=== PATIENT | male | born 1990 | race Two or more races ===

== ENCOUNTER 2021-03-11 13:22 | Outpatient (REF) | payer OTHER, SELFPAY ==
[2021-03-11 16:42] LABS: Hematocrit 46.3 % (42-52); Hemoglobin 15.6 g/dl (14.0-18.0); Mean Corpuscular HGB Conc 33.7 g/dl (31.0-36.0); Mean Corpuscular Hemoglobin 31.9 pg (27.0-33.0); Mean Corpuscular Volume 94.7 fL (80-98); Platelet Count 219 X10*3/uL (160-400); Red Blood Count 4.89 X10*6/uL (4.60-5.80); Red Cell Distribution Width 12.1 % (11.0-16.0); White Blood Count 5.8 X10*3/uL (4.8-10.8)
[2021-03-11 17:15] LABS: Alanine Aminotransferase 76 U/L (0-40); Albumin Level 4.7 g/dL (3.5-5.0); Alkaline Phosphatase 80 U/L (39-117); Anion Gap 16 (12-20); Aspartate Amino Transferase 45 U/L (5-37); Bilirubin Direct 0.3 mg/dL (0.0-0.5); Bilirubin Total 0.9 mg/dL (0.0-1.0); Blood Urea Nitrogen 15 mg/dL (9-16); Calcium 9.8 mg/dL (8.4-10.2); Carbon Dioxide 26 mmol/L (22-29); Chloride 101 mmol/L (96-108); Cholesterol 210 mg/dL; Estimated Glomerular Filt Rate > 60; Glucose Random 249 mg/dL (60-115); HDL Cholesterol 36 mg/dL; Potassium 4.8 mmol/L (3.3-5.1); Sodium 138 mmol/L (135-145); Total Protein 7.5 g/dL (6.5-8.0); Triglycerides 639 mg/dL
== END 2021-03-11 13:23 | disposition home or self-care (01) ==
LOC: HO.HMGCLDS 13:22
PROVIDERS: PCP Nurse Practitioner Family; Visit Provider Internal Medicine
DX: Z20.822 Contact with and (suspected) exposure to COVID-19 (principal); M79.10 Myalgia, unspecified site
CPT/HCPCS: 80048; 80061; 80076; 84443; 85027; C9803; U0003; U0005

== ENCOUNTER 2021-04-02 07:30 | Outpatient (REF) | payer OTHER, SELFPAY ==
[2021-04-02 11:30] LABS: D Dimer 443 NG/ML
[2021-04-02 11:47] LABS: Alanine Aminotransferase 66 U/L (0-40); Albumin Level 3.9 g/dL (3.5-5.0); Alkaline Phosphatase 67 U/L (39-117); Anion Gap 13 (12-20); Aspartate Amino Transferase 24 U/L (5-37); Bilirubin Total 1.1 mg/dL (0.0-1.0); Blood Urea Nitrogen 11 mg/dL (9-16); Carbon Dioxide 25 mmol/L (22-29); Chloride 103 mmol/L (96-108); Cholesterol 213 mg/dL; Estimated Glomerular Filt Rate > 60; Glucose Fasting 175 mg/dL (60-99); HDL Cholesterol 37 mg/dL; Potassium 4.5 mmol/L (3.3-5.1); Sodium 136 mmol/L (135-145); Total Protein 6.5 g/dL (6.5-8.0); Triglycerides 588 mg/dL
[2021-04-02 12:13] LABS: TSH reflex Free T4 1.46 uIU/mL (0.32-4.0)
[2021-04-02 12:30] LABS: Creatinine Urine 195.67 mg/dL; Microalbum/Creatinine Ratio Ur 9.7 ug/mg cr
== END 2021-04-02 07:31 | disposition home or self-care (01) ==
LOC: HO.HMGCLDS 07:30
PROVIDERS: PCP Nurse Practitioner Family; Visit Provider Nurse Practitioner Family
DX: R06.02 Shortness of breath (principal); E11.9 Type 2 diabetes mellitus without complications
CPT/HCPCS: 36415; 80053; 80061; 82043; 84443; 85379

== ENCOUNTER 2021-04-20 08:51 | Outpatient (REF) | payer OTHER, SELFPAY ==
--- NOTE | ~2021-04-20 | XR_ITS ---
EXAMINATION: XR CHEST CLINICAL INFORMATION: Covid infection. Cough. COMPARISON: None TECHNIQUE: 2 views of the chest were obtained. FINDINGS: The cardiac silhouette does not appear enlarged. Mediastinal contours are unremarkable. The lung volumes are low. There are bilateral increased perihilar markings and perihilar infiltrates. There is no pleural effusion or pneumothorax. Bony structures are unremarkable. XR/XR chest 2V IMPRESSION: Low lung volumes and bilateral infiltrates compatible with Covid infection.
--- NOTE | ~2021-04-20 | CT_ITS ---
EXAMINATION: CT ANGIOGRAM OF THE CHEST WITH AND WITHOUT CONTRAST (CT PULMONARY ANGIOGRAM FOR PE) CLINICAL INFORMATION: Reason for Exam R06.02 - Shortness of breath COMPARISON: Previous chest x-ray from earlier the same day TECHNIQUE: Prior to contrast administration, noncontrast localization images were obtained. Subsequently, multidetector volumetric imaging was performed from the thoracic inlet to below the diaphragms following the administration of 65 mL Omnipaque 350 intravenous contrast. No contrast reaction reported Sagittal, coronal, and MIP oblique sagittal reformatted images were obtained on the CT workstation, uploaded to PACS, and reviewed. This CT examination was performed using dose optimization techniques as appropriate, variously including the following: *Automated exposure control *Adjustment of mA and/or kV according to patient size (this includes techniques or standardized protocols for targeted exams where dose is matched to indication/reason for exam; i.e. extremities or head) *Use of iterative reconstruction technique Total exam dose-length product 260 mGy-cm FINDINGS: QUALITY OF STUDY/CONTRAST BOLUS: Satisfactory. PULMONARY ARTERIES: No central or segmental pulmonary emboli. THORACIC AORTA: No aneurysm or dissection. LUNG: The lung volumes are low. There are scattered bilateral areas of subsegmental and groundglass infiltrates. Chest CT appearance is nonspecific but would be compatible with Covid infection. No endobronchial or endotracheal lesion is seen. PLEURA: No pleural effusion or pneumothorax. MEDIASTINUM: Normal heart size. No pericardial effusion. No hilar or mediastinal lymphadenopathy. No evidence of septal bowing or right heart strain. CHEST WALL/AXILLA: No axillary or internal mammary lymphadenopathy. OSSEOUS STRUCTURES: No acute or suspicious osseous abnormality. UPPER ABDOMEN: The liver appears enlarged and low in attenuation suggestive of fatty infiltration. There is diverticulosis of the colon.. No reflux of contrast into the hepatic veins to suggest elevated right heart pressures. CT/CT angio chest PE protocol IMPRESSION: No evidence of pulmonary embolism. New bilateral pulmonary infiltrates compatible with Covid infection. VTE: negative
[2021-04-20] MEDS: iohexoL 350 MG/ML 100 ML INFUS..BTL 65 ML IV (09:39)
== END 2021-04-20 08:52 | disposition home or self-care (01) ==
LOC: HO.CT 08:51
PROVIDERS: PCP Nurse Practitioner Family; Visit Provider Nurse Practitioner Family
DX: R06.02 Shortness of breath (principal); R79.89 Other specified abnormal findings of blood chemistry; J12.9 Viral pneumonia, unspecified; U07.1 COVID-19
CPT/HCPCS: 71046; 71275; Q9967

== ENCOUNTER 2021-07-28 08:20 | Outpatient (REF) | payer OTHER, SELFPAY ==
[2021-07-28 12:05] LABS: Estimated Average Glucose 177 mg/dL; Hemoglobin A1c % 7.8 %
[2021-07-28 12:17] LABS: Alanine Aminotransferase 68 U/L (0-40); Albumin Level 4.6 g/dL (3.5-5.0); Alkaline Phosphatase 64 U/L (39-117); Anion Gap 11 (12-20); Aspartate Amino Transferase 35 U/L (5-37); Blood Urea Nitrogen 15 mg/dL (9-16); Calcium 10.2 mg/dL (8.4-10.2); Carbon Dioxide 26 mmol/L (22-29); Chloride 101 mmol/L (96-108); Cholesterol 243 mg/dL; Estimated Glomerular Filt Rate > 60; Glucose Fasting 178 mg/dL (60-99); HDL Cholesterol 38 mg/dL; Potassium 4.4 mmol/L (3.3-5.1); Sodium 134 mmol/L (135-145); Total Protein 7.3 g/dL (6.5-8.0); Triglycerides 450 mg/dL
== END 2021-07-28 08:21 | disposition home or self-care (01) ==
LOC: HO.HMGCLDS 08:20
PROVIDERS: PCP Nurse Practitioner Family; Visit Provider Nurse Practitioner Family
DX: E11.9 Type 2 diabetes mellitus without complications (principal); E78.5 Hyperlipidemia, unspecified
CPT/HCPCS: 36415; 80053; 80061; 83036

== ENCOUNTER 2021-11-26 08:32 | Outpatient (REF) | payer OTHER, SELFPAY ==
--- NOTE | ~2021-11-26 | XR_ITS ---
EXAMINATION: XR SHOULDER, RIGHT CLINICAL INFORMATION: Right shoulder pain. COMPARISON: None TECHNIQUE: Three views of the right shoulder. FINDINGS: Mild right acromioclavicular degenerative joint changes are seen. There is no acute fracture or dislocation. The visualized right ribs are intact with the soft tissues are unremarkable. XR/XR shoulder RT min 2V IMPRESSION: Mild right acromioclavicular degenerative joint changes without overt fracture.
== END 2021-11-26 08:33 | disposition home or self-care (01) ==
LOC: HO.HMGCX 08:32
PROVIDERS: PCP Nurse Practitioner Family; Visit Provider Internal Medicine
DX: M25.511 Pain in right shoulder (principal)
CPT/HCPCS: 73030

== ENCOUNTER 2021-12-11 07:19 | Outpatient (REF) | payer OTHER, SELFPAY ==
--- NOTE | ~2021-12-11 | MR_ITS ---
EXAMINATION: MR SHOULDER WITHOUT CONTRAST, RIGHT CLINICAL INFORMATION: Shoulder pain COMPARISON: None TECHNIQUE: MRI of the shoulder without contrast was performed on a high-field scanner. FINDINGS: ROTATOR CUFF: Mild supraspinatus and infraspinatus tendinosis. No focal tear is seen. Teres minor is intact. Mild subscapularis tendinosis with articular surface fraying/partial tearing. No muscle atrophy or fatty infiltration. BICEPS: There is flattening and partial medial subluxation of the proximal long head biceps tendon, draped over the lesser tuberosity. CORACOACROMIAL ARCH: The undersurface of the acromion is flat with no subacromial spur. Moderate acromioclavicular arthritis. LABRUM/CAPSULE: Tear of the superior and posterior labrum. 1.8 x 1 x 1.2 cm paralabral cyst adjacent to the posterior labrum. 1.3 x 0.7 x 1.6 cm cyst inferiorly extending to the inferior labrum, probably reflecting a paralabral cyst, raising concern for an occult inferior labral tear. Inferior capsule is intact. GLENOHUMERAL JOINT/MARROW: Within normal limits. MR/MR shoulder RT wo con IMPRESSION: 1. Mild supraspinatus and infraspinatus tendinosis. No focal tear. 2. Mild subscapularis tendinosis with articular surface fraying/partial tearing. 3. Superior labrum and posterior labral tear. 1.8 cm paralabral cyst adjacent to the posterior labrum. 1.3 x 0.7 x 1.6 cm inferior cyst, abutting the inferior labrum, suggestive of a paralabral cyst with underlying occult inferior labral tear. 4. Flattening and partial medial subluxation of the proximal long head biceps tendon, draped over the lesser tuberosity. 5. Moderate acromioclavicular arthritis.
== END 2021-12-11 07:20 | disposition home or self-care (01) ==
LOC: HO.MRI 07:19
PROVIDERS: Visit Provider Nurse Practitioner Family
DX: M25.511 Pain in right shoulder (principal)
CPT/HCPCS: 73221

== ENCOUNTER 2022-06-09 10:12 | Outpatient (REF) | payer OTHER, SELFPAY ==
[2022-06-09 11:16] LABS: MANUAL DIFF FLAG NO
[2022-06-09 11:36] LABS: Basophils Absolute Auto 0.1 X10*3/uL (0.0-0.2); Basophils Percent Auto 0.8 % (0-2); Eosinophils Absolute Auto 0.1 X10*3/uL (0.0-0.4); Eosinophils Percent Auto 1.5 % (0-4); Hematocrit 46.4 % (42.0-52.0); Hemoglobin 15.5 g/dl (14.0-18.0); Imm Gran Abs Auto 0.03 X10*3/uL (0.00-0.03); Imm Gran Pct Auto 0.4 % (0.0-0.4); Lymphocytes Absolute Auto 2.8 X10*3/uL (1.2-4.9); Lymphocytes Percent Auto 38.6 % (20-40); Mean Corpuscular HGB Conc 33.4 g/dl (31.0-36.0); Mean Corpuscular Hemoglobin 30.8 pg (27.0-33.0); Mean Corpuscular Volume 92.1 fL (80.0-98.0); Mean Platelet Volume 9.4 fL (9.4-12.4); Monocytes Absolute Auto 0.9 X10*3/uL (0.1-1.2); Monocytes Percent Auto 12.5 % (2-11); Neutrophils Absolute Auto 3.4 x10*3/uL (2.0-8.3); Neutrophils Percent Auto 46.2 % (45-73); Platelet Count 284 X10*3/uL (160-400); Red Blood Count 5.04 X10*6/uL (4.60-5.80); Red Cell Distribution Width 12.2 % (11.0-16.0); White Blood Count 7.4 X10*3/uL (4.8-10.8)
[2022-06-09 11:46] LABS: Estimated Average Glucose 160 mg/dL; Hemoglobin A1c % 7.2 %
[2022-06-09 12:22] LABS: Alanine Aminotransferase 49 U/L (0-40); Albumin Level 4.6 g/dL (3.5-5.0); Alkaline Phosphatase 71 U/L (39-117); Anion Gap 15 (12-20); Aspartate Amino Transferase 27 U/L (5-37); Bilirubin Total 0.6 mg/dL (0.0-1.0); Blood Urea Nitrogen 16 mg/dL (9-16); Calcium 9.3 mg/dL (8.4-10.2); Carbon Dioxide 22 mmol/L (22-29); Chloride 106 mmol/L (96-108); Cholesterol 185 mg/dL; Estimated Glomerular Filt Rate > 60; Glucose Fasting 131 mg/dL (60-99); HDL Cholesterol 36 mg/dL; LDL Cholesterol Calculated 111 mg/dl; Potassium 4.3 mmol/L (3.3-5.1); Sodium 139 mmol/L (135-145); Triglycerides 190 mg/dL
[2022-06-09 12:36] LABS: TSH reflex Free T4 0.78 uIU/mL (0.32-4.0)
== END 2022-06-09 10:13 | disposition home or self-care (01) ==
LOC: HO.HMGCLDS 10:12
PROVIDERS: PCP Nurse Practitioner Family; Visit Provider Nurse Practitioner Family
DX: Z00.00 Encounter for general adult medical examination without abnormal findings (principal); E11.9 Type 2 diabetes mellitus without complications; E78.5 Hyperlipidemia, unspecified
CPT/HCPCS: 36415; 80053; 80061; 83036; 84443; 85025

== ENCOUNTER 2023-01-25 09:48 | Outpatient (AMB) | payer OTHER, SELFPAY ==
--- NOTE | 2023-01-25 09:56 | MHC.PC.OV ---
Vital Signs 01/25/23 09:57 01/25/23 10:25 Height 5 ft 10 in Weight 264 lb 6 oz BMI 37.9 BP 130/92 H 130/88 Blood Pressure Location Rt brachial Rt brachial Position Sitting Sitting Pulse 94 Pulse Source Pulse Oximeter Pulse Oximetry (%) 96 Oxygen Delivery Method Room Air Intake Visit Reasons: 4 month follow upDM Allergies penicillin G Allergy (Unknown, Verified 01/25/23 09:58) swelling penicillin V Allergy (Unknown, Verified 01/25/23 09:58) unknown Penicillins [PCN] Allergy (Unknown, Verified 01/25/23 09:58) UNKNOWN Medication List - Last Reconciled 01/25/23 by STONEY Ribeiro- alcohol swabs (Alcohol Prep Pads) 1 pad topical BID 60 days amlodipine 5 mg PO DAILY 90 days blood pressure kit-extra large daily use blood sugar diagnostic (FreeStyle Lite Strips) bid blood-glucose meter (FreeStyle Lite Meter kit) bid blood-glucose meter,continuous (Dexcom G6 [place] Sequins) tid blood-glucose sensor (Dexcom G6 Sensor device) tid blood-glucose transmitter (Dexcom G6 Transmitter device) tid Comfort EZ Pen [place] (pen needle, diabetic) daily NS dulaglutide (Trulicity) 0.75 mg (0.5 mL) subcut QWEEK insulin glargine (Lantus Solostar U-100 Insulin) 20 units (0.2 mL) subcut DAILY lancets (FreeStyle Lancets) bid lisinopril 40 mg PO DAILY 90 days Tobacco use date assessed: 01/25/23 Dental Screening Dental Screen Date: 01/25/23 Did you have a dental visit in the last 12 months?: Yes Did you have a dental problem in the last 6 months where you did not have access to dental care?: No Was dental information given to patient?: Patient has dentist HPI 4 month follow upDM HPI Details Pt is a diabetic, on an KRISTINA. A1c in office today is 6.7. Due for microalbumin. Denies polyuria, polydipsia, and neuropathy. Pt denies any signs and symptoms of hypoglycemia and does know how to correct it. Pt reports that his blood sugar has been averaging around the 140s. Pt refuses statin or any other medication for choles lowering. BP: 120s/80s at home. [facility] Medical History COVID Diabetes HTN (hypertension) Hyponatremia Newly diagnosed diabetes Viral pneumonia Surgical History S/P right rotator cuff repair Family History Mother HTN (hypertension) Diabetes mellitus Arthritis Social History Housing: House Patient Tobacco Use Status: Former Tobacco user Years Smoked: 10 years ago e-Cigarette/Vaping Use: Never Used Second Hand Smoke Exposure: No service: No Current occupational status: employed Current occupation: [employer] Current occupational exposures/hazards: No Cognitive needs: No Hearing needs: No Vision needs: No Questionnaire Thrive Questionnaire Date Thrive assessed: 09/23/22 ANGELICA-7 AMB Questionnaire ANGELICA-7 Date ANGELICA - 7 assessed: 09/23/22 Source: Developed by Drs. Konrad Rendon, Esther Buck, Jorge Duke and colleagues, with an educational tabitha from [employer]. Review of Systems Const Reports as per HPI Physical exam (Primary Care) Vital Signs: Last Vital Signs Pulse 94 01/25/23 09:57 BP 130/88 01/25/23 10:25 Pulse Ox 96 01/25/23 09:57 Oxygen Delivery Method Room Air 01/25/23 09:57 BMI result Body Mass Index 37.9 Tobacco/Smoking Status: Tobacco use Status Tobacco use date assessed 01/25/23 01/25/23 10:01 Patient Tobacco Use Status Former Tobacco user 01/25/23 10:01 e-Cigarette/Vaping Use Never Used 01/25/23 10:01 Thrive Assessment: Date of Thrive Assessment Date Thrive assessed 09/23/22 01/25/23 10:01 Const General: cooperative Nutritional Appearance: obese Orientation/consciousness: patient oriented x3 Resp Effort & Inspection: normal respiratory effort Auscultation: clear to auscultation bilaterally Cardio Rate: regular rate Rhythm: regular rhythm Heart sounds: S1 normal heart sound present and S2 normal heart sound present Neuro General: patient oriented x3 Extrem Other: bilat feet: + sensation with use of monofilament Psych Appearance: grossly normal Mental Status: mental status grossly normal Speech and movement: Normal speech and movement present Affect: normal affect Attitude: cooperative Thought process: Normal thought process present Thought content: Normal thought content present Insight: Good insight present (Psych) Judgement: Good judgement present (Psych) Results AMB Hemoglobin A1c AMB Hemoglobin A1c 6.7 % Last Edit by Margarita Presley CMA on 01/25/23 10:37 Results Reviewed Results Reviewed: Laboratory Last Values Hgb A1c (Clinic) 6.7 % (4.0-6.0) H 01/25/23 10:36 Assessment and Plan Assessment & Plan (1) Diabetes: Code(s): E11.9 - Type 2 diabetes mellitus without complications Plan: Labs ordered Plan The patient agreed to the use of a medical technologist microbiology for this encounter. Scribed for DAVID Rose by Trudy Villalba medical technologist microbiology, on 01/25/2023 at 10:15 EST. Orders: Orders Comprehensive [place]. Panel Fast Today E11.9 - Type 2 diabetes mellitus without complications Lipid Panel Today E11.9 - Type 2 diabetes mellitus without complications TSH reflex Free T4 Today E11.9 - Type 2 diabetes mellitus without complications Microalbumin, Random (w Creat) Today E11.9 - Type 2 diabetes mellitus without complications Complete Blood Count Auto Diff Today E11.9 - Type 2 diabetes mellitus without complications UA CC w/rflx Micro + Cult Today E11.9 - Type 2 diabetes mellitus without complications AMB Hemoglobin A1c Today E11.9 - Type 2 diabetes mellitus without complications Referrals Optometry Referral E11.9 - Type 2 diabetes mellitus without complications Coding Level of Care Code Est Pt Level 3 (82949) Diagnoses Diabetes E11.9
[2023-01-25 09:57] VITALS: BP 130/92; PULSE 94; O2SAT 96; BMI 37.9
[2023-01-25 10:25] VITALS: BP 130/88
== END 2023-01-25 10:29 | disposition home or self-care (01) ==
PROVIDERS: Visit Provider Nurse Practitioner Family
DX: E11.9 Type 2 diabetes mellitus without complications (principal)
CPT/HCPCS: 83036; 99213

== ENCOUNTER 2023-09-12 07:40 | Outpatient (REF) | payer OTHER, SELFPAY ==
[2023-09-12 11:29] LABS: Appearance Urine Turbid; Color Urine Yellow; Glucose Urine UA >=1000 mg/dL (Negative); Leukocyte Esterase Urine Moderate (2+) (Negative); Nitrite Urine Negative (Negative); PH 5.5 (5.0-9.0); Specific Gravity - Urine >= 1.030 (1.005-1.025); UMIC TRIGGER UACC YES; Urine Blood Small (1+) (Negative); Urine Ketones Trace mg/dL (Negative); Urine Protein Trace mg/dL (Neg-Trace)
[2023-09-12 11:37] LABS: MANUAL DIFF FLAG NO
[2023-09-12 11:39] LABS: Basophils Absolute Auto 0.1 X10*3/uL (0.0-0.2); Basophils Percent Auto 0.8 % (0-2); Eosinophils Absolute Auto 0.1 X10*3/uL (0.0-0.4); Eosinophils Percent Auto 1.6 % (0-4); Hematocrit 48.6 % (42.0-52.0); Hemoglobin 16.7 g/dl (14.0-18.0); Imm Gran Abs Auto 0.02 X10*3/uL (0.00-0.03); Imm Gran Pct Auto 0.3 % (0.0-0.4); Lymphocytes Absolute Auto 2.8 X10*3/uL (1.2-4.9); Lymphocytes Percent Auto 46.1 % (20-40); Mean Corpuscular HGB Conc 34.4 g/dl (31.0-36.0); Mean Corpuscular Hemoglobin 32.3 pg (27.0-33.0); Mean Platelet Volume 9.7 fL (9.4-12.4); Monocytes Absolute Auto 0.8 X10*3/uL (0.1-1.2); Neutrophils Absolute Auto 2.3 x10*3/uL (2.0-8.3); Neutrophils Percent Auto 38.2 % (45-73); Platelet Count 245 X10*3/uL (160-400); Red Blood Count 5.17 X10*6/uL (4.60-5.80); Red Cell Distribution Width 11.8 % (11.0-16.0); White Blood Count 6.1 X10*3/uL (4.8-10.8)
[2023-09-12 11:47] LABS: Bacteria Urine 3+ (None Seen); Hyaline Casts Urine 0-2 /LPF (0-2); RBC Urine 0-2 /HPF (0-2); UACC Culture Trigger YES; WBC Urine 21-50 /HPF (0-5)
[2023-09-12 12:08] LABS: Alanine Aminotransferase 48 U/L (0-40); Albumin Level 4.4 g/dL (3.5-5.0); Alkaline Phosphatase 79 U/L (39-117); Anion Gap 12 (12-20); Aspartate Amino Transferase 24 U/L (5-37); Bilirubin Total 0.9 mg/dL (0.0-1.0); Blood Urea Nitrogen 14 mg/dL (9-16); Carbon Dioxide 24 mmol/L (22-29); Chloride 103 mmol/L (96-108); Cholesterol 258 mg/dL (<200); Estimated Glomerular Filt Rate > 60; Glucose Fasting 187 mg/dL (60-99); HDL Cholesterol 37 mg/dL (>40); Potassium 3.9 mmol/L (3.3-5.1); Sodium 135 mmol/L (135-145); Total Protein 7.3 g/dL (6.5-8.0); Triglycerides 509 mg/dL (<150)
[2023-09-12 12:17] LABS: TSH reflex Free T4 1.09 uIU/mL (0.32-4.0)
[2023-09-12 13:06] LABS: Creatinine Urine 219.15 mg/dL; Microalbum/Creatinine Ratio Ur 46.9 ug/mg cr (<30)
== END 2023-09-12 07:41 | disposition home or self-care (01) ==
LOC: HO.HMGCLDS 07:40
PROVIDERS: PCP Nurse Practitioner Family; Visit Provider Nurse Practitioner Family
DX: E11.9 Type 2 diabetes mellitus without complications (principal); R31.29 Other microscopic hematuria
CPT/HCPCS: 36415; 80053; 80061; 81001; 82043; 82570; 84443; 85025; 87086

== ENCOUNTER 2023-09-19 14:00 | Outpatient (AMB) | payer OTHER, SELFPAY ==
--- NOTE | 2023-09-19 14:08 | A.OFFPC_ITS ---
Vital Signs 09/19/23 14:09 Height 5 ft 10 in Weight 272 lb 4 oz BMI 39.1 BP 120/86 Blood Pressure Location Rt brachial Position Sitting Pulse 98 Pulse Source Pulse Oximeter Pulse Oximetry (%) 97 Oxygen Delivery Method Room Air Intake Visit Reasons: diabetes, A1c 10.7 Allergies penicillin G Allergy (Unknown, Verified 09/19/23 14:14) swelling penicillin V Allergy (Unknown, Verified 09/19/23 14:14) unknown Penicillins [PCN] Allergy (Unknown, Verified 09/19/23 14:14) UNKNOWN Medication List - Last Reconciled 09/19/23 by STONEY Ribeiro- alcohol swabs (Alcohol Prep Pads) 1 pad topical BID 60 days amlodipine 5 mg PO DAILY 90 days atorvastatin 20 mg PO BEDTIME blood pressure kit-extra large daily use blood sugar diagnostic (FreeStyle Lite Strips) bid blood-glucose meter (FreeStyle Lite Meter kit) bid blood-glucose meter,continuous (Dexcom G6 [employer]) tid blood-glucose sensor (Dexcom G6 Sensor device) tid Comfort EZ Pen [place] (pen needle, diabetic) daily NS dulaglutide 1.5 mg (0.5 mL) subcut QWEEK insulin glargine (Lantus Solostar U-100 Insulin) 20 units (0.2 mL) subcut DAILY lancets (FreeStyle Lancets) bid lisinopril 40 mg PO DAILY 90 days Tobacco use date assessed: 09/19/23 Dental Screening Dental Screen Date: 09/19/23 Did you have a dental visit in the last 12 months?: Yes Did you have a dental problem in the last 6 months where you did not have access to dental care?: No Was dental information given to patient?: Patient has dentist HPI diabetes, A1c 10.7 HPI Details Pt is a diabetic, on an KRISTINA. Last A1C was 10.7. Microalbumin is up to date. Denies polyuria, polydipsia, and neuropathy. Pt denies any signs and symptoms of hypoglycemia and does know how to correct it. Pt reports that his diet has been poo and he has been drinking excessive alcohol. Will increase trulicity from 0.75mg to 1.5mg. Pt reports not always being compliant with his medications, reenforced the importance of taking meds as prescribed, eating a proper diet, and cutting back the etoh use. Pt is not currently on a statin. Educated pt on the importance of statins especially with diabetes. Pt is agreeable to restart a statin, will send. Pt will follow up with more labs, and highly encouraged a healthier lifestyle. [facility] Medical History Diabetes Newly diagnosed diabetes COVID Hyponatremia Viral pneumonia HTN (hypertension) Surgical History S/P right rotator cuff repair Family History Mother HTN (hypertension) Diabetes mellitus Arthritis Social History Housing: House Patient Tobacco Use Status: Former Tobacco user Years Smoked: 10 years ago e-Cigarette/Vaping Use: Never Used Second Hand Smoke Exposure: No service: No Current occupational status: employed Current occupation: [employer] Current occupational exposures/hazards: No Cognitive needs: No Hearing needs: No Vision needs: No Questionnaire Thrive Questionnaire Date Thrive assessed: 09/13/23 ANGELICA-7 AMB Questionnaire ANGELICA-7 Date ANGELICA - 7 assessed: 09/13/23 Source: Developed by Drs. Konrad Rendon, Esther Buck, Jorge Duke and colleagues, with an educational tabitha from [employer] Review of Systems Const Reports as per HPI Physical exam (Primary Care) Vital Signs: Last Vital Signs Pulse 98 09/19/23 14:09 BP 120/86 09/19/23 14:09 Pulse Ox 97 09/19/23 14:09 Oxygen Delivery Method Room Air 09/19/23 14:09 BMI result Body Mass Index 39.1 Tobacco/Smoking Status: Tobacco use Status Tobacco use date assessed 09/19/23 09/19/23 14:16 Patient Tobacco Use Status Former Tobacco user 09/19/23 14:09 e-Cigarette/Vaping Use Never Used 09/19/23 14:09 Thrive Assessment: Date of Thrive Assessment Date Thrive assessed 09/13/23 09/19/23 14:09 Const General: cooperative Nutritional Appearance: obese Orientation/consciousness: patient oriented x3 Resp Effort & Inspection: normal respiratory effort Auscultation: clear to auscultation bilaterally Cardio Rate: regular rate Rhythm: regular rhythm Heart sounds: S1 normal heart sound present and S2 normal heart sound present Neuro General: patient oriented x3 Extrem Other: refused foot exam Psych Appearance: grossly normal Mental Status: mental status grossly normal Speech and movement: Normal speech and movement present Affect: normal affect Attitude: cooperative Thought process: Normal thought process present Thought content: Normal thought content present Insight: Good insight present (Psych) Judgement: Good judgement present (Psych) Assessment and Plan Assessment & Plan (1) Diabetes: Code(s): E11.9 - Type 2 diabetes mellitus without complications Plan: reinforced importance of diet and tight glucose control. (2) ETOH abuse: Code(s): F10.10 - Alcohol abuse, uncomplicated Plan: cut back Plan The patient agreed to the use of a medical staff specialist for this encounter. Scribed for STONEY Rose-JENNY by Trudy Villalba medical staff specialist, on 09/19/2023 at 14:25 EST. Orders: Referrals Sleep Medicine Referral G47.30 - Sleep apnea, unspecified Medications: New atorvastatin 20 mg PO BEDTIME 90 tabs 0RF Changed From dulaglutide (Trulicity) 0.75 mg (0.5 mL) subcut QWEEK 6 mL 1RF To dulaglutide 1.5 mg (0.5 mL) subcut QWEEK 2 mL 1RF Coding Level of Care Code Est Pt Level 3 (84714) Diagnoses Diabetes E11.9 ETOH abuse F10.10
[2023-09-19 14:09] VITALS: BP 120/86; PULSE 98; O2SAT 97; BMI 39.1
== END 2023-09-19 15:07 | disposition home or self-care (01) ==
PROVIDERS: PCP Nurse Practitioner Family; Visit Provider Nurse Practitioner Family
DX: E11.9 Type 2 diabetes mellitus without complications (principal); F10.10 Alcohol abuse, uncomplicated
CPT/HCPCS: 99213

== ENCOUNTER 2023-11-08 08:48 | Outpatient (REF) | payer OTHER, SELFPAY ==
[2023-11-08 16:40] LABS: Urine Cytology See Pathology rpt
== END 2023-11-08 08:49 | disposition home or self-care (01) ==
LOC: HO.LNP 08:48
PROVIDERS: PCP Nurse Practitioner Family; Visit Provider Nurse Practitioner Family
DX: R31.29 Other microscopic hematuria (principal); Z87.891 Personal history of nicotine dependence
CPT/HCPCS: 81003; 88112

== ENCOUNTER 2023-11-08 08:48 | Outpatient (AMB) | payer OTHER, SELFPAY ==
--- NOTE | 2023-11-08 09:11 | MHC.OFFVIS ---
Intake Visit Reasons: microscopic hematuria Intake Note: New Patient presents for initial visit for microscopic hematuria Urology Medications: none Blood Thinner: none Cmo Required: No Accompanied by: Self / Same As Patient Allergies penicillin G Allergy (Unknown, Verified 11/08/23 20:59) swelling penicillin V Allergy (Unknown, Verified 11/08/23 20:59) unknown Penicillins [PCN] Allergy (Unknown, Verified 11/08/23 20:59) UNKNOWN Medication List - Last Reconciled 11/08/23 by DAVID Lake alcohol swabs (Alcohol Prep Pads) 1 pad topical BID 60 days amlodipine 5 mg PO DAILY 90 days blood pressure kit-extra large daily use blood sugar diagnostic (FreeStyle Lite Strips) bid blood-glucose meter (FreeStyle Lite Meter kit) bid blood-glucose meter,continuous (Dexcom G6 Supervisor Pile Driving) tid blood-glucose sensor (Dexcom G6 Sensor device) tid Comfort EZ Pen [place] (pen needle, diabetic) daily NS dulaglutide 1.5 mg (0.5 mL) subcut QWEEK insulin glargine (Lantus Solostar U-100 Insulin) 20 units (0.2 mL) subcut DAILY lancets (FreeStyle Lancets) bid lisinopril 40 mg PO DAILY 90 days HPI Comments Details: Quan is a 33-year-old male patient of Dr. Emmanuel. He has a past medical history of diabetes and hypertension. He presents to the office today as a new patient for microscopic hematuria. In discussion with the patient today reports having followed up with his PCP at which time urinalysis noted microscopic hematuria and recommendations were made for urology referral for further assessment evaluation. When asked he does report a previous history of nicotine dependence however quit 3 years ago. Does report to be smoking cigars approximately 1 day per week. He also discusses being exposed to chemical exposures at work however is compliant with PPE. Discussed at length potential causes for microscopic hematuria I discussed reasons for blood in the urine may include but are not limited to kidney stones, cancer in the urinary tract, BPH, kidney stone disease or inflammatory conditions of the urinary tract. I have discussed workup to include cystoscopy evaluation. In office urinalysis results reviewed with the patient today. No microscopic hematuria noted. He otherwise denies any bothersome urinary issues or concerns. He denies urinary urgency, urinary frequency, incontinence, nocturia, hematuria, dysuria, foul smelling urine, changes to urinary stream, flank pain, fever, and or chills. He is happy with his current voiding parameters. He discusses having a scheduled CT for this Tuesday11/11/23. He otherwise offers no other issues or concerns at this time. [facility] Medical History Diabetes Newly diagnosed diabetes COVID Hyponatremia Viral pneumonia HTN (hypertension) Surgical History S/P right rotator cuff repair Family History Mother HTN (hypertension) Diabetes mellitus Arthritis Social History Housing: House Patient Tobacco Use Status: Former Tobacco user Years Smoked: 10 years ago e-Cigarette/Vaping Use: Never Used Second Hand Smoke Exposure: No service: No Current occupational status: employed Current occupation: [employer] Current occupational exposures/hazards: No Cognitive needs: No Hearing needs: No Vision needs: No Review of Systems Const Reports no additional complaints Eyes Reports no additional complaints ENT Reports no additional complaints Card Reports as per HPI Resp Reports no additional complaints GI Reports no additional complaints Reports as per HPI Musc Reports no additional complaints Neuro Reports no additional complaints Psych Reports no additional complaints Endo Reports as per HPI Prakash/Lymph Reports no additional complaints Aller/Immun Reports no additional complaints Physical Exam Const General: cooperative, comfortable, no acute distress, well developed, alert and awake Nutritional Appearance: overweight Orientation/consciousness: patient oriented x3 Limitations: no limitations HEENT Head: Yes normal to inspection, Yes normocephalic and Yes atraumatic Ears: hearing grossly normal bilaterally Eyes General: appearance normal, both eyes and all related structures Neck Neck: Yes normal visual inspection and Yes trachea midline Chest Chest palpation & inspection: normal inspection of the chest Resp Effort & Inspection: normal respiratory effort and able to speak in complete sentences Cardio Rate: regular rate GI Inspection: Yes normal to inspection General: Yes no CVA tenderness Back/Spine/Pelvis Back: no CVA tenderness Skin General skin exam: no rashes or lesions noted Neuro General: patient oriented x3 Extrem General: Yes normal to inspection Psych Appearance: grossly normal and well kempt Mental Status: mental status grossly normal Speech and movement: Normal speech and movement present and Clear speech present Affect: normal affect Attitude: cooperative Thought process: Normal thought process present Thought content: Normal thought content present Insight: Fair insight present (Psych) Judgement: Fair judgement present (Psych) Results AMB Urinalysis, Automated UA Leukoctes 0 Sandro/uL Last Edit by Joan Rosas on 11/08/23 09:28 UA Nitrite Negative Last Edit by Joan Rosas on 11/08/23 09:28 UA Urobilinogen 0.2 mg/dL Last Edit by Joan Rosas on 11/08/23 09:28 UA Protein 15 mg/dL Last Edit by Joan Rosas on 11/08/23 09:28 UA pH 6.0 Last Edit by Joan Rosas on 11/08/23 09:28 UA Blood 0 Sang/uL Last Edit by Joan Rosas on 11/08/23 09:28 UA Specific [place] 1.030 Last Edit by Joan Rosas on 11/08/23 09:28 UA Ketone Positive Last Edit by Joan Rosas on 11/08/23 09:28 UA Bilirubin 0 mg/dL Last Edit by Joan Rosas on 11/08/23 09:28 UA Glucose 500 mg/dL Last Edit by Joan Rosas on 11/08/23 09:28 Results Reviewed Results Reviewed: Laboratory Last Values Urine pH (Auto) 6.0 11/08/23 09:23 Specific [place] (Auto) 1.030 11/08/23 09:23 Urine Protein (Auto) 15 mg/dL 11/08/23 09:23 Glucose (UA)(Auto) 500 mg/dL 11/08/23 09:23 Urine Ketones (Auto) Positive 11/08/23 09:23 Urine Blood (Auto) 0 Sang/uL 11/08/23 09:23 Urine Nitrite (Auto) Negative 11/08/23 09:23 Urine Bilirubin (Auto) 0 mg/dL 11/08/23 09:23 Urine Urobilinogen (Auto) 0.2 mg/dL 11/08/23 09:23 Leukocyte Esterase (Auto) 0 Sandro/uL 11/08/23 09:23 Assessment & Plan Assessment & Plan (1) Microscopic hematuria: Code(s): R31.29 - Other microscopic hematuria Category: Medical (2) History of nicotine dependence: Code(s): Z87.891 - Personal history of nicotine dependence Category: Medical Plan In office urinalysis results reviewed with the patient today; as noted above; will send for urine cytology. Discussed at length further microscopic hematuria workup in the setting of nicotine dependence and workplace chemical exposure to include CT urogram, urine cytology, in office cystoscopy versus surveillance monitoring; risks and benefits of these interventions were discussed at length. Patient currently denies any bothersome urinary issues or concerns. He reports be happy with current voiding parameters. PCP ordered CT patient has scheduled CT appointment on Friday 11/10; will await results. Discussed at length potential causes of microscopic hematuria. Follow-up in 1 month with imaging to be completed prior; or sooner with any issues, concerns, and or questions. Orders: Orders AMB Urinalysis Automated Today Z13.9 - Encounter for screening, unspecified Urine Cytology Today R31.29 - Other microscopic hematuria Patient Instructions: The patient had an opportunity to ask questions regarding the treatment plan. All questions were answered. Physical exam, labs, and imaging were discussed and reviewed in detail. As well as risks, benefits, and discussion of treatment choices. No major barriers to understanding were identified. The patient expressed understanding and agreement with the above treatment plan. The patient was made aware they should contact our office by phone for worsening of their current condition, the appearance of new symptoms, or with any questions or concerns. Compliance is encouraged with any medications and follow up testing that is ordered. It is a privilege to be allowed the opportunity to participate in? your urological care.? Again, if you have any questions or concerns If you have any questions or concerns please do not hesitate to contact me. The office is [phone]. This note is constructed using voice recognition software. While every effort has been made to ensure accuracy electrical and electronic assembler errors may have been included. Yours sincerely, DAVID Lake Coding Level of Care Code New Pt Level 4 (33059) Diagnoses Microscopic hematuria R31.29 History of nicotine dependence Z87.891 Time Spent (min) 35
== END 2023-11-08 09:45 | disposition home or self-care (01) ==
PROVIDERS: PCP Nurse Practitioner Family; Visit Provider Nurse Practitioner Family
DX: R31.29 Other microscopic hematuria (principal); Z87.891 Personal history of nicotine dependence
CPT/HCPCS: 99204

== ENCOUNTER 2023-12-07 16:19 | Outpatient (REF) | payer OTHER, SELFPAY ==
--- NOTE | ~2023-12-07 | US_ITS ---
EXAMINATION: US SCROTUM CLINICAL INFORMATION: Microscopic hematuria. Recent testicular pain. COMPARISON: None available. TECHNIQUE: A sonogram of the scrotum was performed assessing mary-scale appearance and color Doppler flow. Spectral Doppler analysis of the arterial and venous flow were performed in the testes bilaterally. FINDINGS: RIGHT: Right testicle measures 4.7 x 2.2 x 3.6 cm, volume 20 mL. No focal testicular parenchymal lesions are visualized. Spectral Doppler analysis of the arterial and venous flow is normal in the right testis. Right epididymal head is normal in size. Small 4 mm cyst right epididymal head. No right hydrocele or varicocele is seen. Right epididymal Doppler flow is normal. LEFT: Left testicle measures 4.1 x 2.6 x 2.4 cm, volume 13 mL. No focal testicular parenchymal lesions are visualized. Spectral Doppler analysis of the arterial and venous flow is normal in the left testis. Left epididymal head is normal in size. Small 3 mm cyst left epididymal head. No left hydrocele or varicocele is seen. Left epididymal Doppler flow is normal. US/US scrotum IMPRESSION: Small bilateral epididymal head cysts.
== END 2023-12-07 16:20 | disposition home or self-care (01) ==
LOC: HO.US 16:19
PROVIDERS: PCP Nurse Practitioner Family; Visit Provider Nurse Practitioner Family
DX: R31.29 Other microscopic hematuria (principal); N50.819 Testicular pain, unspecified; Z87.891 Personal history of nicotine dependence
CPT/HCPCS: 76870

== ENCOUNTER 2023-12-26 10:13 | Outpatient (AMB) | payer OTHER, SELFPAY ==
--- NOTE | 2023-12-26 10:51 | MHC.PC.OV ---
Vital Signs 12/26/23 10:54 Height 5 ft 10 in Weight 260 lb BMI 37.3 BP 110/80 Blood Pressure Location Rt brachial Position Sitting Pulse 100 Pulse Source Pulse Oximeter Pulse Oximetry (%) 99 Oxygen Delivery Method Room Air Intake Visit Reasons: Annual PE/DM/Overdue For PE Intake Note: Patient here for physical exam. Allergies penicillin G Allergy (Unknown, Verified 12/26/23 12:21) swelling penicillin V Allergy (Unknown, Verified 12/26/23 12:21) unknown Penicillins [PCN] Allergy (Unknown, Verified 12/26/23 12:21) UNKNOWN Medication List - Last Reconciled 12/26/23 by DAVID Ribeiro alcohol swabs (Alcohol Prep Pads) 1 pad topical BID 60 days amlodipine 5 mg PO DAILY 90 days blood pressure kit-extra large daily use blood sugar diagnostic (FreeStyle Lite Strips) bid blood-glucose meter (FreeStyle Lite Meter kit) bid blood-glucose meter,continuous (Dexcom G6 [employer]) tid blood-glucose sensor (Dexcom G6 Sensor device) tid Comfort EZ Pen [place] (pen needle, diabetic) daily NS dulaglutide 1.5 mg (0.5 mL) subcut QWEEK insulin glargine (Lantus Solostar U-100 Insulin) 20 units (0.2 mL) subcut DAILY lancets (FreeStyle Lancets) bid lisinopril 40 mg PO DAILY 90 days Tobacco use date assessed: 09/19/23 Dental Screening Dental Screen Date: 09/19/23 HPI Annual PE/DM/Overdue For PE HPI Details Pt is here for a PE. Will order labs. Pt is a diabetic, on an KRISTINA. A1C in office today is 7.5. Microalbumin is up to date. Denies polyuria, polydipsia, and neuropathy. Pt denies any signs and symptoms of hypoglycemia and does know how to correct it. Pt reports not taking trulicity currently due to issues getting this med. He is working on his blood sugar and is doing intermittent fasting. Eye exam is up to date. [facility] Medical History Diabetes Newly diagnosed diabetes COVID Hyponatremia Viral pneumonia HTN (hypertension) Surgical History S/P right rotator cuff repair Family History Mother HTN (hypertension) Diabetes mellitus Arthritis Social History Housing: House Patient Tobacco Use Status: Former Tobacco user Years Smoked: 10 years ago e-Cigarette/Vaping Use: Never Used Second Hand Smoke Exposure: No service: No Current occupational status: employed Current occupation: [employer] Current occupational exposures/hazards: No Cognitive needs: No Hearing needs: No Vision needs: No Questionnaire Thrive Questionnaire Date Thrive assessed: 12/26/23 I am a: Patient What is your living situation today?: I choose not to answer this question Within the past 12 months, did the food you bought not last and you didn't have the money to get more?: I choose not to answer this question Within the past 12 months, did you worry whether your food would run out before you got money to buy more?: I choose not to answer this question Do you have trouble paying for medicines?: I choose not to answer this question Do you have trouble getting transportation to medical appointments?: I choose not to answer this question Do you have trouble paying your heating and electricity bill?: I choose not to answer this question Do you have trouble taking care of your child, family member or friend?: I choose not to answer this question Do you have trouble with day-to-day activities such as bathing, preparing meals, shopping, managing finances, etc.?: I choose not to answer this question Are you currently unemployed and looking for a job?: I choose not to answer this question Are you interested in more education?: I choose not to answer this question Currently or been in a relationship where the following occur: I choose not to answer this question THRIVE Score: 0 AUDIT C Alcohol Use Questionnaire (AUDIT-C) 1. How often do you have a drink containing alcohol?: Never 3. How often do you have six or more drinks on one occasion?: Never Total Score: 0 Score Reviewed/Action Taken: No ANGELICA-7 AMB Questionnaire ANGELICA-7 Date ANGELICA - 7 assessed: 09/13/23 Source: Developed by Drs. Konrad Rendon, Esther Buck, Jorge Duke and colleagues, with an educational tabitha from [employer]. Review of Systems Const Denies chills and Denies fever(s) Eyes Denies blurry vision ENT Denies vertigo, Denies dizziness and Denies sore throat Card Denies chest pain at rest, Denies chest pain with activity, Denies diaphoresis, Denies dyspnea and Denies dyspnea on exertion Resp Denies cough, Denies dyspnea, Denies dyspnea on exertion and Denies wheezing GI Denies abdominal pain, Denies melena, Denies hematochezia, Denies constipation, Denies diarrhea and Denies loose stools Denies hematuria Musc Denies numbness and Denies tingling Skin/Breast Denies lesions Neuro Denies vertigo, Denies dizziness, Denies numbness and Denies tingling Psych Denies anxiety, Denies depression, Denies homicidal ideation, Denies suicidal ideation and Denies other (substance abuse) Aller/Immun Denies wheezing Physical exam (Primary Care) Vital Signs: Last Vital Signs Pulse 100 12/26/23 10:54 BP 110/80 12/26/23 10:54 Pulse Ox 99 12/26/23 10:54 Oxygen Delivery Method Room Air 12/26/23 10:54 BMI result Body Mass Index 37.3 Tobacco/Smoking Status: Tobacco use Status Tobacco use date assessed 09/19/23 12/26/23 10:52 Patient Tobacco Use Status Former Tobacco user 12/26/23 10:52 e-Cigarette/Vaping Use Never Used 12/26/23 10:52 Thrive Assessment: Date of Thrive Assessment Date Thrive assessed 09/13/23 12/26/23 10:52 Currently or been in a relationship where the following occur: I choose not to answer this question Const General: cooperative Nutritional Appearance: obese Orientation/consciousness: patient oriented x3 HENMT Head: Yes normal to inspection, Yes normocephalic and Yes atraumatic Ears: TM's normal bilaterally Eyes General: appearance normal, both eyes and all related structures Alignment and Position: alignment normal and position normal Neck Neck: Yes normal visual inspection and Yes no lymphadenopathy Thyroid: Thyroid normal Resp Effort & Inspection: normal respiratory effort Auscultation: clear to auscultation bilaterally Cardio Rate: regular rate Rhythm: regular rhythm Heart sounds: S1 normal heart sound present, S2 normal heart sound present and no murmurs GI Palpation (GI): Soft to palpation and nontender Auscultation: normal bowel sounds Male General Exam: Yes normal external exam Penis: normal penis Scrotum: scrotum normal, testes descended bilaterally and no inguinal hernias Testes: no testicular mass Skin Rashes: no rashes Neuro General: patient oriented x3, moves all extremities, no focal motor deficits and deep tendon reflexes 2+ bilaterally Romberg Test: Negative Extrem Other: bilat feet: + sensation with use of monofilament, feet intact Psych Appearance: grossly normal Mental Status: mental status grossly normal Speech and movement: Normal speech and movement present Affect: normal affect Attitude: cooperative Thought process: Normal thought process present Thought content: Normal thought content present Insight: Good insight present (Psych) Judgement: Good judgement present (Psych) Results AMB Hemoglobin A1c AMB Hemoglobin A1c 7.5 % Last Edit by MARIA EUGENIA Baird on 12/26/23 11:29 Assessment and Plan Assessment & Plan (1) Diabetes: Code(s): E11.9 - Type 2 diabetes mellitus without complications Plan: Labs ordered (2) Physical exam: Code(s): Z00.00 - Encounter for general adult medical examination without abnormal findings Plan: Labs ordered Plan The patient agreed to the use of a medical assistant ob gyn for this encounter. Scribed for DAVID Rose by Trudy Villalba medical assistant ob gyn, on 12/26/2023 at 11:15 EST. Orders: Orders Complete Blood Count Auto Diff Today E11.9 - Type 2 diabetes mellitus without complications, Z00.00 - Encounter for general adult medical examination without abnormal findings Comprehensive [place]. Panel Fast Today E11.9 - Type 2 diabetes mellitus without complications, Z00.00 - Encounter for general adult medical examination without abnormal findings TSH reflex Free T4 Today E11.9 - Type 2 diabetes mellitus without complications, Z00.00 - Encounter for general adult medical examination without abnormal findings UA CC w/rflx Micro + Cult Today E11.9 - Type 2 diabetes mellitus without complications, Z00.00 - Encounter for general adult medical examination without abnormal findings Lipid Panel Today E11.9 - Type 2 diabetes mellitus without complications, Z00.00 - Encounter for general adult medical examination without abnormal findings AMB Hemoglobin A1c Today Z13.9 - Encounter for screening, unspecified Coding Level of Care Code Est Pt Prev Care 18-39y(78853) Diagnoses Diabetes E11.9 Physical exam Z00.00
[2023-12-26 10:54] VITALS: BP 110/80; PULSE 100; O2SAT 99; BMI 37.3
== END 2023-12-26 11:31 | disposition home or self-care (01) ==
PROVIDERS: PCP Nurse Practitioner Family; Visit Provider Nurse Practitioner Family
DX: Z00.00 Encounter for general adult medical examination without abnormal findings (principal); E11.9 Type 2 diabetes mellitus without complications
CPT/HCPCS: 83036; 99395

== ENCOUNTER 2024-01-10 08:03 | Outpatient (AMB) | payer OTHER, SELFPAY ==
--- NOTE | 2024-01-10 08:09 | MHC.OFFVIS ---
Vital Signs 01/10/24 08:16 Height 5 ft 10 in Weight 264 lb BMI 37.9 BP 142/80 H Blood Pressure Location Lt brachial Position Sitting Pulse 81 Pulse Source Pulse Oximeter Pulse Oximetry (%) 97 Oxygen Delivery Method Room Air Intake Visit Reasons: INP-BRINDA-LVM Intake Note: Patient presents for BRINDA. Allergies penicillin G Allergy (Unknown, Verified 01/10/24 08:14) swelling penicillin V Allergy (Unknown, Verified 01/10/24 08:14) unknown Penicillins [PCN] Allergy (Unknown, Verified 01/10/24 08:14) UNKNOWN Medication List - Last Reconciled 01/10/24 by STONEY Traylor alcohol swabs (Alcohol Prep Pads) 1 pad topical BID 60 days amlodipine 5 mg PO DAILY 90 days blood pressure kit-extra large daily use blood sugar diagnostic (FreeStyle Lite Strips) bid blood-glucose meter (FreeStyle Lite Meter kit) bid blood-glucose meter,continuous (Dexcom G6 Gate Watchman) tid blood-glucose sensor (Dexcom G6 Sensor device) tid Comfort EZ Pen [place] (pen needle, diabetic) daily NS dulaglutide 1.5 mg (0.5 mL) subcut QWEEK insulin glargine (Lantus Solostar U-100 Insulin) 20 units (0.2 mL) subcut DAILY lancets (FreeStyle Lancets) bid lisinopril 40 mg PO DAILY 90 days HPI Comments Details: 33-yr-old male presents for new in-person patient visit for sleep consultation. 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 Sleep questionnaire: Have you ever been diagnosed with a sleep disorder? no Have you ever had a sleep study in the past? no Have you ever been treated for a sleep disorder? no Do you take medications for a sleep disorder? no Do you have difficulty initiating sleep? no Do you have difficulty maintaining sleep? no Do you wake up tired? no Do you have daytime tiredness or fatigue? yes- mores o later in the day Do you easily fall asleep when inactive? more so later in the day Do you snore? yes Do you wake up gasping at night? denies Do you have episodes of apneas? denies Do you have episodes of nocturnal chest pain or dyspnea? denies Do you have bruxism? denies Do you have headaches upon awakening? denies Do you wake up with dry mouth or throat? denies Do you have GERD? denies now- used to but stopped eating fried foods Do you have nocturia? denies Do you have nocturnal leg cramps? in the past- better since eating better Do you have symptoms of restless legs? Sometimes when sitting- tapping his leg. But not at bedtime. Do you act out your dreams? denies Do you have sleep paralysis? denies Do you have drop attacks? denies Do you ever have hypnogenic hallucinations? denies Hypersomnolence questionnaire: Have you ever had episodes of sudden weakness? denies Have you ever had episodes of sudden weakness associated with strong emotions? denies Sleep hygiene questionnaire: What is your usual sleep routine? Usual bedtime is at 9:30pmpm; Usual wake-up time is at 5:30-6am. Do you take naps? Sometimes on the weekends Is your sleep environment cool, dark, and quiet? Yes Do you exercise? Tries to. Physically active at work. Do you take caffeine or other stimulants? Tea- sometimes Do you use electronics in bed? Phone- for about 30 minutes before bed. What is your work schedule? 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 [facility] Medical History Diabetes Newly diagnosed diabetes COVID Hyponatremia Viral pneumonia HTN (hypertension) Surgical History S/P right rotator cuff repair Family History Mother HTN (hypertension) Diabetes mellitus Arthritis Social History Housing: House Patient Tobacco Use Status: Former Tobacco user Years Smoked: 10 years ago e-Cigarette/Vaping Use: Never Used Second Hand Smoke Exposure: No service: No Current occupational status: employed Current occupation: [employer] Current occupational exposures/hazards: No Cognitive needs: No Hearing needs: No Vision needs: No Physical Exam Vital Signs: Last Vital Signs Pulse 81 01/10/24 08:16 BP 142/80 H 01/10/24 08:16 Pulse Ox 97 01/10/24 08:16 Oxygen Delivery Method Room Air 01/10/24 08:16 BMI result Body Mass Index 37.9 Const General: no acute distress Orientation/consciousness: patient oriented x3 HEENT Other: Mallampati stage 4 Resp Effort & Inspection: normal respiratory effort and able to speak in complete sentences Cardio Rate: regular rate Rhythm: regular rhythm Heart sounds: S1 normal heart sound present and S2 normal heart sound present Neuro General: patient oriented x3 Psych Mental Status: mental status grossly normal Speech and movement: Clear speech present Attitude: cooperative Assessment & Plan Assessment & Plan (1) Snoring: Code(s): R06.83 - Snoring Category: Medical (2) Excessive daytime sleepiness: Code(s): G47.19 - Other hypersomnia Category: Medical (3) Diabetes: Code(s): E11.9 - Type 2 diabetes mellitus without complications Category: Medical (4) Obesity, Class II, BMI 35-39.9: Code(s): E66.9 - Obesity, unspecified Category: Medical Plan Pt is advised to undergo sleep study to assess for sleep apnea: HST Will f/u with pt after study to discuss results and appropriate treatment options. Pt to call with any worsening concerns or questions. Orders: Orders RT home sleep study Today E66.9 - Obesity, unspecified, G47.19 - Other hypersomnia, R06.83 - Snoring Coding Level of Care Code New Pt Level 3 (88906) Diagnoses Snoring R06.83 Excessive daytime sleepiness G47.19 Diabetes E11.9 Obesity, Class II, BMI 35-39.9 E66.9 [place] Sleepiness Scale Questions Sitting and reading: moderate chance of dozing Watching TV: moderate chance of dozing Sitting inactive in a theater, movie etc.: would never doze As a passenger in a car for an hour without break: would never doze Lying down in the afternoon when circumstances permit: high chance of dozing Sitting and talking to someone: would never doze Sitting quietly after lunch without alcohol: high chance of dozing In a car, while stopped for a few minutes in the traffic: would never doze ESS < 10: normal, ESS > 12: pathologic: 10
[2024-01-10 08:16] VITALS: BP 142/80; PULSE 81; O2SAT 97; BMI 37.9
== END 2024-01-10 09:13 | disposition home or self-care (01) ==
PROVIDERS: PCP Nurse Practitioner Family; Visit Provider Nurse Practitioner Family
DX: R06.83 Snoring (principal); G47.19 Other hypersomnia; E11.9 Type 2 diabetes mellitus without complications; E66.9 Obesity, unspecified
CPT/HCPCS: 99203

== ENCOUNTER → 2024-01-10 08:03 | Outpatient (BNVA) | payer OTHER, SELFPAY | PROVIDERS: PCP Nurse Practitioner Family; Visit Provider Nurse Practitioner Family ==

== ENCOUNTER → 2024-02-22 08:18 | Outpatient (REF) | payer OTHER, SELFPAY | LOC: HO.SL 08:18 | PROVIDERS: PCP Nurse Practitioner Family; Visit Provider Nurse Practitioner Family | DX: G47.33 Obstructive sleep apnea (adult) (pediatric) (principal); G47.19 Other hypersomnia; R06.83 Snoring; E66.9 Obesity, unspecified | CPT/HCPCS: 95806 ==

== ENCOUNTER → 2024-02-22 08:33 | Outpatient (BNV) | payer OTHER, SELFPAY | PROVIDERS: PCP Nurse Practitioner Family; Visit Provider Internal Medicine | DX: G47.33 Obstructive sleep apnea (adult) (pediatric) (principal) | CPT/HCPCS: 95806 ==

== ENCOUNTER 2024-05-02 07:59 | Outpatient (AMB) | payer OTHER, SELFPAY ==
[2024-05-02 08:01] VITALS: BP 122/84; PULSE 80; O2SAT 98; BMI 39.0
--- NOTE | 2024-05-02 08:01 | MHC.PC.OV ---
Vital Signs 05/02/24 08:01 Height 5 ft 10 in Weight 272 lb BMI 39.0 BP 122/84 Blood Pressure Location Rt brachial Position Sitting Pulse 80 Pulse Source Pulse Oximeter Pulse Oximetry (%) 98 Oxygen Delivery Method Room Air Intake Visit Reasons: 3-4 Month F/U Intake Note: pt is here for 3 month follow up Java Software Required: No Accompanied by: Self / Same As Patient Allergies penicillin G Allergy (Unknown, Verified 05/02/24 08:56) swelling penicillin V Allergy (Unknown, Verified 05/02/24 08:56) unknown Penicillins [PCN] Allergy (Unknown, Verified 05/02/24 08:56) UNKNOWN Medication List - Last Reconciled 05/02/24 by DAVID Ribeiro alcohol swabs (Alcohol Prep Pads) 1 pad topical BID 60 days amlodipine 5 mg PO DAILY 90 days blood pressure kit-extra large daily use blood sugar diagnostic (FreeStyle Lite Strips) bid blood-glucose meter (FreeStyle Lite Meter kit) bid blood-glucose meter,continuous (Dexcom G6 Local Operator) tid blood-glucose sensor (Dexcom G6 Sensor device) tid Comfort EZ Pen [place] (pen needle, diabetic) daily NS dulaglutide 3 mg (0.5 mL) subcut QWEEK insulin glargine (Lantus Solostar U-100 Insulin) 20 units (0.2 mL) subcut DAILY lancets (FreeStyle Lancets) bid lisinopril 40 mg PO DAILY 90 days Tobacco use date assessed: 09/19/23 Dental Screening Dental Screen Date: 09/19/23 HPI 3-4 Month F/U HPI Details Pt is a diabetic, on an KRISTINA. A1C in office today is 7.8 . Microalbumin is up to date. Denies polyuria, polydipsia, and neuropathy. Pt denies any signs and symptoms of hypoglycemia and does know how to correct it. Will increase trulicity from 1.5mg to 3mg and lantus from 20 units to 25 units. Refuses statin. Refuses pneumonia vaccine. Eye exam is up to date according to pt. [facility] Medical History Diabetes Newly diagnosed diabetes COVID Hyponatremia Viral pneumonia HTN (hypertension) Surgical History S/P right rotator cuff repair Family History Mother HTN (hypertension) Diabetes mellitus Arthritis Social History Housing: House Patient Tobacco Use Status: Former Tobacco user Years Smoked: 10 years ago e-Cigarette/Vaping Use: Never Used Second Hand Smoke Exposure: No service: No Current occupational status: employed Current occupation: [employer] Current occupational exposures/hazards: No Cognitive needs: No Hearing needs: No Vision needs: No Questionnaire PHQ-9 Over the last 2 weeks, how often have you been bothered by any of the following problems? 1. Little interest or pleasure in doing things: not at all 2. Feeling down, depressed, or hopeless: not at all 3. Trouble falling or staying asleep, or sleeping too much: not at all 4. Feeling tired or having little energy: not at all 5. Poor appetite or overeating: not at all 6. Feeling bad about yourself - or that you are a failure or have let yourself or your family down: not at all 7. Trouble concentrating on things, such as reading the newspaper or watching television: not at all 8. Moving or speaking so slowly that other people could have noticed. Or the opposite - being so fidgety or restless that you have been moving around a lot more than usual: not at all 9. Thoughts that you would be better off or of hurting yourself in some way: not at all Total score: 0 Depression Screening Interpretation: Negative Depression Screening Done: Yes 49029 - PHQ-9 Billing: Yes Source: Developed by Drs. Konrad Rendon, Esther Buck, Jorge Duke and colleagues, with an educational tabitha from [employer]. Thrive Questionnaire Date Thrive assessed: 05/02/24 I am a: Patient What is your living situation today?: I choose not to answer this question Within the past 12 months, did the food you bought not last and you didn't have the money to get more?: I choose not to answer this question Within the past 12 months, did you worry whether your food would run out before you got money to buy more?: I choose not to answer this question Do you have trouble paying for medicines?: I choose not to answer this question Do you have trouble getting transportation to medical appointments?: I choose not to answer this question Do you have trouble paying your heating and electricity bill?: I choose not to answer this question Do you have trouble taking care of your child, family member or friend?: I choose not to answer this question Do you have trouble with day-to-day activities such as bathing, preparing meals, shopping, managing finances, etc.?: I choose not to answer this question Are you interested in more education?: I choose not to answer this question Please select the resources that you would like help with: None Currently or been in a relationship where the following occur: I choose not to answer THRIVE Score: 0 AUDIT C Alcohol Use Questionnaire (AUDIT-C) 1. How often do you have a drink containing alcohol?: Never 3. How often do you have six or more drinks on one occasion?: Never Total Score: 0 Score Reviewed/Action Taken: Yes ANGELICA-7 AMB Questionnaire ANGELICA-7 Date ANGELICA - 7 assessed: 05/02/24 Feeling nervous, anxious, or on edge: 0 = Not at all Not being able to stop or control worryin = Not at all Worrying too much about different things: 0 = Not at all Trouble relaxin = Not at all Being so restless that it is hard to sit still: 0 = Not at all Becoming easily annoyed or irritable: 0 = Not at all Feeling afraid as if something awful might happen: 0 = Not at all Total ANGELICA-7 score (0-4 normal; 5-9 mild; 10-14 moderate; 15-21 severe): 0 Source: Developed by Drs. Konrad Rendon, Esther Buck, Jorge Duke and colleagues, with an educational tabitha from [employer]. ANGELICA-7 Assessment Billing ANGELICA-7 Assessment Tool: ANGELICA-7 Assessment 83163 Review of Systems Const Reports as per HPI Physical exam (Primary Care) Vital Signs: Last Vital Signs Pulse 80 05/02/24 08:01 BP 122/84 05/02/24 08:01 Pulse Ox 98 05/02/24 08:01 Oxygen Delivery Method Room Air 05/02/24 08:01 BMI result Body Mass Index 39.0 Tobacco/Smoking Status: Tobacco use Status Tobacco use date assessed 09/19/23 05/02/24 08:03 Patient Tobacco Use Status Former Tobacco user 05/02/24 08:03 e-Cigarette/Vaping Use Never Used 05/02/24 08:03 PHQ-9: PHQ-9 Score PHQ-9: Total score 0 05/02/24 08:03 Depression Screening Interpretation: Negative Thrive Assessment: Date of Thrive Assessment Date Thrive assessed 05/02/24 05/02/24 08:03 Currently or been in a relationship where the following occur: I choose not to answer Const General: cooperative Nutritional Appearance: obese Orientation/consciousness: patient oriented x3 Resp Effort & Inspection: normal respiratory effort Auscultation: clear to auscultation bilaterally Cardio Rate: regular rate Rhythm: regular rhythm Heart sounds: S1 normal heart sound present and S2 normal heart sound present Neuro General: patient oriented x3 Extrem Other: bilat feet: + sensation with use of monofilament, feet intact Psych Appearance: grossly normal Mental Status: mental status grossly normal Speech and movement: Normal speech and movement present Affect: normal affect Attitude: cooperative Thought process: Normal thought process present Thought content: Normal thought content present Insight: Good insight present (Psych) Judgement: Good judgement present (Psych) Results AMB Hemoglobin A1c AMB Hemoglobin A1c 7.8 % Last Edit by Lloyd Pierson CMA on 05/02/24 08:30 Coding Level of Care Code Est Pt Level 3 (75409) Diagnoses Diabetes E11.9 Additional Codes ANGELICA-7 Assessment Billing - ANGELICA-7 Assessment Tool: ANGELICA-7 Assessment 17396 ([id number]) Assessment & Plan Assessment & Plan (1) Diabetes: Code(s): E11.9 - Type 2 diabetes mellitus without complications Category: Medical Plan: Increasing trulicity from 1.5mg to 3mg and lantus from 20 units to 25 units Plan The patient agreed to the use of a medical cost consultant for this encounter. Scribed for DAVID Rose by Trudy Villalba medical cost consultant, on 05/02/2024 at 08:15 EST. Orders: Orders AMB Hemoglobin A1c Today Z13.9 - Encounter for screening, unspecified Medications: Changed From dulaglutide 1.5 mg (0.5 mL) subcut QWEEK 2 mL 1RF To dulaglutide 3 mg (0.5 mL) subcut QWEEK 2 mL 1RF From insulin glargine (Lantus Solostar U-100 Insulin) 20 units (0.2 mL) subcut DAILY 15 mL 1RF To insulin glargine (Lantus Solostar U-100 Insulin) 25 units (0.25 mL) subcut DAILY 15 mL 1RF
== END 2024-05-02 10:10 | disposition home or self-care (01) ==
PROVIDERS: PCP Nurse Practitioner Family; Visit Provider Nurse Practitioner Family
DX: E11.9 Type 2 diabetes mellitus without complications (principal); Z13.9 Encounter for screening, unspecified

== ENCOUNTER → 2024-05-02 07:59 | Outpatient (BNVA) | payer OTHER, SELFPAY | PROVIDERS: PCP Nurse Practitioner Family; Visit Provider Nurse Practitioner Family ==

== ENCOUNTER 2024-05-02 08:35 | Outpatient (REF) | payer OTHER, SELFPAY ==
[2024-05-02 10:14] LABS: MANUAL DIFF FLAG NO
[2024-05-02 10:22] LABS: Basophils Absolute Auto 0.1 X10*3/uL (0.0-0.2); Basophils Percent Auto 0.9 % (0-2); Eosinophils Absolute Auto 0.1 X10*3/uL (0.0-0.4); Eosinophils Percent Auto 1.9 % (0-4); Hematocrit 47.7 % (42.0-52.0); Hemoglobin 16.7 g/dl (14.0-18.0); Imm Gran Abs Auto 0.06 X10*3/uL (0.00-0.03); Imm Gran Pct Auto 0.9 % (0.0-0.4); Lymphocytes Absolute Auto 2.5 X10*3/uL (1.2-4.9); Lymphocytes Percent Auto 34.9 % (20-40); Mean Corpuscular Hemoglobin 32.4 pg (27.0-33.0); Mean Corpuscular Volume 92.4 fL (80.0-98.0); Mean Platelet Volume 9.8 fL (9.4-12.4); Monocytes Absolute Auto 0.9 X10*3/uL (0.1-1.2); Monocytes Percent Auto 12.1 % (2-11); Neutrophils Absolute Auto 3.5 x10*3/uL (2.0-8.3); Neutrophils Percent Auto 49.3 % (45-73); Platelet Count 268 X10*3/uL (160-400); Red Blood Count 5.16 X10*6/uL (4.60-5.80)
[2024-05-02 10:41] LABS: Appearance Urine Turbid; Color Urine Yellow; Glucose Urine UA 500 mg/dL (Negative); Leukocyte Esterase Urine Negative (Negative); Nitrite Urine Negative (Negative); PH 5.5 (5.0-9.0); Specific Gravity - Urine >= 1.030 (1.005-1.025); UMIC TRIGGER UACC YES; Urine Blood Negative (Negative); Urine Ketones 15 mg/dL (Negative); Urine Protein 30 (1+) mg/dL (Neg-Trace)
[2024-05-02 11:08] LABS: Alanine Aminotransferase 49 U/L (0-40); Albumin Level 4.7 g/dL (3.5-5.0); Alkaline Phosphatase 71 U/L (39-117); Anion Gap 13 (12-20); Aspartate Amino Transferase 25 U/L (5-37); Bilirubin Total 0.8 mg/dL (0.0-1.0); Blood Urea Nitrogen 14 mg/dL (9-16); Calcium 9.8 mg/dL (8.4-10.2); Carbon Dioxide 26 mmol/L (22-29); Chloride 101 mmol/L (96-108); Cholesterol 247 mg/dL (<200); Estimated Glomerular Filt Rate > 60; Glucose Fasting 204 mg/dL (60-99); HDL Cholesterol 45 mg/dL (>40); Potassium 4.4 mmol/L (3.3-5.1); Sodium 136 mmol/L (135-145); Total Protein 7.5 g/dL (6.5-8.0); Triglycerides 402 mg/dL (<150)
[2024-05-02 14:28] LABS: Bacteria Urine None Seen (None Seen); Hyaline Casts Urine 0-2 /LPF (0-2); RBC Urine 0-2 /HPF (0-2); Squamous Epithelial Cell Urine 0-2 /HPF (0-2); WBC Urine 0-5 /HPF (0-5)
== END 2024-05-02 08:36 | disposition home or self-care (01) ==
LOC: HO.HMGCLDS 08:35
PROVIDERS: PCP Nurse Practitioner Family; Visit Provider Nurse Practitioner Family
DX: E11.9 Type 2 diabetes mellitus without complications (principal); Z79.4 Long term (current) use of insulin; Z00.00 Encounter for general adult medical examination without abnormal findings
CPT/HCPCS: 36415; 80053; 80061; 81001; 83036; 84443; 85025; 96127

== ENCOUNTER 2024-08-07 15:18 | Outpatient (AMB) | payer OTHER, SELFPAY ==
[2024-08-07 15:35] VITALS: BP 130/92; PULSE 88; O2SAT 97; BMI 39.2
--- NOTE | 2024-08-07 15:35 | MHC.OFFVIS ---
Vital Signs 08/07/24 15:35 Height 5 ft 10 in Weight 273 lb 4 oz BMI 39.2 BP 130/92 H Blood Pressure Location Rt brachial Position Sitting Pulse 88 Pulse Source Pulse Oximeter Pulse Oximetry (%) 97 Oxygen Delivery Method Room Air Intake Visit Reasons: Follow up Allergies penicillin G Allergy (Unknown, Verified 08/07/24 15:38) swelling penicillin V Allergy (Unknown, Verified 08/07/24 15:38) unknown Penicillins [PCN] Allergy (Unknown, Verified 08/07/24 15:38) UNKNOWN Medication List - Last Reconciled 08/07/24 by STONEY Traylor alcohol swabs (Alcohol Prep Pads) 1 pad topical BID 60 days amlodipine 5 mg PO DAILY 90 days blood pressure kit-extra large daily use blood sugar diagnostic (FreeStyle Lite Strips) bid blood-glucose meter (FreeStyle Lite Meter kit) bid blood-glucose meter,continuous (Dexcom G6 Beverage Inspection Machine Tender) tid blood-glucose sensor (Dexcom G6 Sensor device) tid Comfort EZ Pen [place] (pen needle, diabetic) daily NS dulaglutide 3 mg (0.5 mL) subcut QWEEK insulin glargine (Lantus Solostar U-100 Insulin) 25 units (0.25 mL) subcut DAILY lancets (FreeStyle Lancets) bid lisinopril 40 mg PO DAILY 90 days HPI Comments Details: 34-yr-old male presents for follow-up visit to discuss results of home sleep study. Since the last visit, patient underwent HST which showed severe obstructive sleep apnea with AHI 26.6/hour and O2 margi 81%, with SpO2 under 90% for 9.6 minutes of study time, and under 88% for 3.1 minutes of study time, heart rate range 55-113 beats per minute with mean heart rate of 76 beats per minute. Snoring was recorded for 24.5 % of study time. Patient initially was not sure of the accuracy of the HST, as he had drank alcohol the night prior to the sleep study. Since however he did agree to trial on APAP 5-20 cm H2O. Unfortunately, he has not been able to tolerate the CPAP, as he felt like he could not breathe with it CPAP compliance shows minimal use, not enough used to ascertain an optimal treatment setting. He is curious about alternate treatments for sleep apnea, such as weight loss and inspire tx. He notes that he has struggled to lose weight- he is not very active and is prone to eating a poor diet and drinking alcohol. He is curious if a weight loss program or weight loss medication would be helpful. He also asked if it would be beneficial to start walking to and from work at least a few days a week, as he only works about 2 miles from his home. 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 Sleep questionnaire: Have you ever been diagnosed with a sleep disorder? no Have you ever had a sleep study in the past? no Have you ever been treated for a sleep disorder? no Do you take medications for a sleep disorder? no Do you have difficulty initiating sleep? no Do you have difficulty maintaining sleep? no Do you wake up tired? no Do you have daytime tiredness or fatigue? yes- mores o later in the day Do you easily fall asleep when inactive? more so later in the day Do you snore? yes Do you wake up gasping at night? denies Do you have episodes of apneas? denies Do you have episodes of nocturnal chest pain or dyspnea? denies Do you have bruxism? denies Do you have headaches upon awakening? denies Do you wake up with dry mouth or throat? denies Do you have GERD? denies now- used to but stopped eating fried foods Do you have nocturia? denies Do you have nocturnal leg cramps? in the past- better since eating better Do you have symptoms of restless legs? Sometimes when sitting- tapping his leg. But not at bedtime. Do you act out your dreams? denies Do you have sleep paralysis? denies Do you have drop attacks? denies Do you ever have hypnogenic hallucinations? denies Hypersomnolence questionnaire: Have you ever had episodes of sudden weakness? denies Have you ever had episodes of sudden weakness associated with strong emotions? denies Sleep hygiene questionnaire: What is your usual sleep routine? Usual bedtime is at 9:30pmpm; Usual wake-up time is at 5:30-6am. Do you take naps? Sometimes on the weekends Is your sleep environment cool, dark, and quiet? Yes Do you exercise? Tries to. Physically active at work. Do you take caffeine or other stimulants? Tea- sometimes Do you use electronics in bed? Phone- for about 30 minutes before bed. What is your work schedule? 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 [facility] Medical History Diabetes Newly diagnosed diabetes COVID Hyponatremia Viral pneumonia HTN (hypertension) Surgical History S/P right rotator cuff repair Family History Mother HTN (hypertension) Diabetes mellitus Arthritis Social History Housing: House Patient Tobacco Use Status: Former Tobacco user Years Smoked: 10 years ago e-Cigarette/Vaping Use: Never Used Second Hand Smoke Exposure: No service: No Current occupational status: employed Current occupation: [employer] Current occupational exposures/hazards: No Cognitive needs: No Hearing needs: No Vision needs: No Physical Exam Vital Signs: Last Vital Signs Pulse 88 08/07/24 15:35 BP 130/92 H 08/07/24 15:35 Pulse Ox 97 08/07/24 15:35 Oxygen Delivery Method Room Air 08/07/24 15:35 BMI result Body Mass Index 39.2 Const General: no acute distress Orientation/consciousness: patient oriented x3 HEENT Other: Mallampati stage 4 Resp Effort & Inspection: normal respiratory effort and able to speak in complete sentences Neuro General: patient oriented x3 Psych Mental Status: mental status grossly normal Speech and movement: Clear speech present Attitude: cooperative Assessment & Plan Assessment & Plan (1) Severe obstructive sleep apnea: Code(s): G47.33 - Obstructive sleep apnea (adult) (pediatric) Category: Medical (2) Snoring: Code(s): R06.83 - Snoring Category: Medical (3) Obesity, Class II, BMI 35-39.9: Code(s): E66.9 - Obesity, unspecified Category: Medical Plan Reviewed HST results, consistent with severe obstructive sleep apnea. I have advised him to undergo in-lab sleep study, to assess full extent of his severe sleep apnea, as this may inform future treatment decisions. Patient is aware that if he has a severe degree of sleep apnea in in-lab sleep study as well, the sleep study will be converted to a PAP titration study. We will refer patient for medical weight management consult, patient may be a good candidate to trial weight loss medication however will likely need support. We will request ENT consult to determine if patient is a candidate for alternate sleep apnea treatment interventions. Offered referral to [facility] to support him in reducing alcohol use, patient declines at this time. Will follow-up upon review of above and patient to follow-up in clinic in 6 months or sooner prn. Orders: Orders RT PSG in-lab sleep study Today E66.9 - Obesity, unspecified, G47.33 - Obstructive sleep apnea (adult) (pediatric), R06.83 - Snoring Referrals Ear/Nose/Throat Referral G47.33 - Obstructive sleep apnea (adult) (pediatric), R06.83 - Snoring Medical Weight Management Referral E66.9 - Obesity, unspecified, G47.33 - Obstructive sleep apnea (adult) (pediatric) Coding Level of Care Code Est Pt Level 4 (44930) Diagnoses Severe obstructive sleep apnea G47.33 Snoring R06.83 Obesity, Class II, BMI 35-39.9 E66.9
--- OUTSIDE RECORDS SUMMARY | 2024-08-07 17:16 | XMS_ITS | Data Portability ---
Author Organization ALESHA Olivera s, [address] Address [address] [place] [address] Care Team Providers Care Vehicle Return Associate Name Role Phone [facility] Primary Care Provider [phone] Assessment No assessment recorded. Plan of Treatment Reminders Order Date Submit Date Provider Last Modified By Organization Details Last Modified Time Details Appointments None recorded. Lab rapid SARS CoV 2 Ag, QL IA, respiratory specimen 2021 022 [email or web address] [facility], [address] [place] [address], [phone], 19:05:55 Referral None recorded. Procedures None recorded. Surgeries None recorded. Imaging None recorded. Medication Orders None recorded. Patient TargetsNo targets recorded. Patient Instructions Encounter Date Encounter Id Patient Instructions Last Modified By Organization Details Last Modified Time 06/26/2022 [id number] cough: care instructions [email or web address] Not available 06/26/2022 19:05:55 Reason for Referral None Reported. Results Created Date Observation Date Name Description Value Unit Range Abnormal Flag Note LastModifiedBy Organization Detail LastModifiedTime 06/26/2006/26/2022 rapid SARS CoV 2 Ag, QL IA, respi rator y speci men Unknown Analyte Normal =Negat shonda Not Available [facility] [address] [place] [address], [phone], 06/26/2022 18:23:19 06/26/20 22 06/26/2022 rapid SARS CoV 2 Ag, QL IA, respi rator y speci men Unknown Analyte negati ve Not Available axel agosto [address], [phone], 06/26/2022 18:23:19 Result Notes None recorded. Problems Name Problem SNOMED Code Status Onset Date Resolution Date Notes Provider Name and Address Organization Details Recorded Time Hypertensive disorder 28479029 Active 2021 KI schwab, [place] - [facility] 2 18:20:59 Diabetes mellitus 34317164 Active 2021 KI schwab, [place] - [facility] 18:21:07 Problem Notes None recorded. Procedures Surgical History Date Name Laterality Status Provider Name and Address Organization Details Recorded Time complete repair of rotator cuff completed KI ELLIS PA - [facility] 06/26/2022 18:23:02 Imaging Results None recorded. Procedure Notes None recorded. Medical Equipment None Reported. Allergies Allergen ID Allergen Name Allergen Category Reaction Reaction Severity Criticality Documentation Date Start Date Code Code System Note Provider Name and Address Organization Details Recorded Time 29429 Product containin g penicilli n and antibioti c (product) medicatio n facial swelling Not available high 06/26/2022 28923 05 SNOMED KI schwab, [place] - [facility] 2 18:19:11 Medications Name Sig Start Date Stop Date Status Note LastModified by Organization Details LastModified Time amlodipine active Not Available Not Av ailable Not Available lisinopril active Not Available Not Av ailable Not Available Lantus Solostar U-100 Insulin active Not Available Not Availabl e Not Available Trulicity active Not Available Not Casandra ilable Not Available Vitals Date Recorded Body weight Provider Name an d Address Organization Details Last Updated DateTime 06/26/2022 655919.02 g KI ELLIS PA - [facility] 06/26/2022 18:23:26 Date Recorded Body mass index (BMI) Body height Provider Name and Address Organization Details Last Updated DateTime 06/26/2022 37.3 kg/m2 177.8 cm KI ELLIS PA - [facility] 06/26/2022 18:23:32 Date Recorded Oxygen saturation Oxygen saturation in Arterial blood by Pulse oximetry Provider Name and Address Organization Details Last Updated DateTime 06/26/2022 97 % 97 % KI ELLIS PA - [facility] 06/26/2022 18:25:42 Date Recorded Heart rate Provider Name an d Address Organization Details Last Updated DateTime 06/26/2022 95 /min KI ELLIS PA - [facility] 06/26/2022 18:25:50 Date Recorded Respiratory rate Provider Name a nd Address Organization Details Last Updated DateTime 06/26/2022 18 /min KI ELLIS PA - [facility] 06/26/2022 18:25:52 Date Recorded Body temperature Provider Name a nd Address Organization Details Last Updated DateTime 06/26/2022 98.1 [degF] KI ELLIS PA - [facility] 06/26/2022 18:26:21 Date Recorded Systolic blood pressure Diastolic blood pressure Provider Name and Address Organization Details Last Updated DateTime 06/26/2022 131 mm[Hg] 88 mm[Hg] KI ELLIS PA - [facility] 06/26/2022 18:25:35 Social History Question Answer Notes LastModified by Organizat ion Details LastModified Time Tobacco Smoking Status Never Smoker KI ELLIS null, PA - [facility] 06/26/2022 18:21:35 What Is Your Level Of Alcohol Consumption? None Information not available 06/26/2022 Are You Currently Employed? Yes Information not available 06/26/2022 What Is Your Water Source? Other Information not available 06/26/2022 What Is Your Heat Source? Other Information not available 06/26/2022 Do You Use Any Illicit Or Recreational Drugs? No Information not available 06/26/2022 Have You Recently Traveled Abroad? No Information not available 06/26/2022 Sex: Unknown Functional Status None recorded. Mental Status None recorded. Family History Relationship Description Onset Age of this Age Resolved Age Notes LastModified by Organization Details LastModified Time Father No current problems or disability Not available 06/26 18:21:22 Mother No current problems or disability Not available 06/26 18:21:22 Medical History No medical history recorded. Past Encounters Encounter ID Performer Location Encounter Start Date Encounter Closed Date Diagnosis/Indication Diagnosis SNOMED-CT Code Diagnosis ICD10 Code Diagnosis Note [id number] [address] [facility] [place] [address] 04/06/2021 14:14:33 04/06/2021 15:37:30 [id number] [address] [facility] [place] [address] 03/11/2021 13:49:40 03/11/2021 16:30:48 [id number] [address] [facility] [place] [address] 11/10/2020 12:52:23 11/10/2020 14:20:59 [id number] ALESHA IZQUIERDO [address] [facility] [place] [address] 06/26/2022 15:43:00 06/26/2022 19:07:30 COVID-19 583659278 U07.1 Resolving on Paxlovid - Need COVID test for Work Health Concerns Section Related Observation LastModified by Organization Detai ls LastModified Time None Recorded Concern Status LastModified by Organization Details LastModified Time None Recorded Advance Directives Directive None Recorded Payers Encounter Date Sequence Insurance Name Policy Number Policy Queen Covered Member ID Queen Member ID Guarantor Name 11/10/2020 1 [facility] - DIRECT CONNECTORCARE TYPE I (HMO) [id number] Blu D Samek [id number] Blu Samek 03/11/2021 1 [facility] - DIRECT CONNECTORCARE TYPE I (HMO) [id number] Blu D Samek [id number] Blu Samek 04/06/2021 1 [facility] - DIRECT CONNECTORCARE TYPE I (HMO) [id number] Blu D Samek [id number] Blu Samek 06/26/[address] [place] [address] INC - DIRECT CONNECTORCARE TYPE I (HMO) [id number] Blu D Samek [id number] Blu Samek Notes Date Note Type Note Provider Name and Address Organization Details Recorded Time 2 text/html CoughReported bypatient.source of patient informationInformation obtained from patient; Patient arrived at Urgent Care ambulatory Severity:improving Associated Symptoms:no fever; no chills; no chest pain; no heartburn; no nausea; no vomiting; no edema ALESHA IZQUIERDO [address] [place], [address], [place] - [facility] 06/26/2022 19:09:41
--- OUTSIDE RECORDS SUMMARY | 2024-08-07 17:16 | XMS_ITS | Data Portability ---
Author Organization [facility] Address [address] [facility] [place] [address] Care Team Providers Care Vault Keeper Name Role Phone EDIN GRAVES Primary Care Provider JEFFREY MEJIAS Nut Sorter Unavailable Assessment Encounter Date Assessment Date Assessment LastModified by Organization Details LastModified Time 12/29/2021 12/29/2021 His exam and symptoms are clearly related to his subluxed biceps tendon and his superior border subscapularis tear. This is something that does not improve in my opinion with physical therapy since that biceps tendon is clearly unstable and not contained. He also has a posterior labral tear with a paralabral cyst. He has not had success with therapy nor do I think that he will have success with therapy. I recommended he undergo a right shoulder of scopic subscapularis rotator cuff repair. Decompression of his paralabral cyst arthroscopically and then an arthroscopic posterior labral repair. We will then release his biceps tendon and do an open subpectoral biceps tenodesis. He will be in a sling for 4 weeks after surgery he will be initiate therapy at 2 weeks. 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 We will get approval for the surgery and get it scheduled as soon as possible. In the interim he will remain out of work. [email or web address] Not available 12/29/2021 16:13:45 02/12/2022 02/12/2022 X-ray examinatio n shows postoperative changes consistent with recent subacromial decompression with no fracture dislocations. I reviewed the operative report and his x-rays. We discussed PT protocol. He will follow the rotator cuff and labral protocol. He will wear his sling for 5 weeks. He will return to the office on 03/23/2022 for further evaluation. [email or web address] Not available 02/12/2022 13:31:25 03/23/2022 03/23/2022 7-week status po st right shoulder arthroscopic rotator cuff repair septic biceps tenodesis and labral repair. He is slightly stiff but making good progress. We will see him back in 3 months juncture. Work status he is capable of doing a job with no overhead work no repetitive use of his right upper extremity and no lifting greater than 10 pounds. [email or web address] Not available 03/23/2022 10:57:14 05/04/2022 05/04/2022 31-year-old gentleman who is just shy of 3 months status post his rotator cuff repair subpectoral basis labral pair. He still has some end range of motion stiffness but his motion all over is actually fairly good. 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 He is capable of doing a job lifting no greater than 25 pounds. No overhead lifting. And limited repetitive use of his right upper extremity. I will see him back in 6 weeks time at which time we hope to give him a less restrictive work release note. [email or web address] Not available 05/04/2022 14:23:38 06/15/2022 06/15/2022 32-year-old who is 4 months status post his right shoulder rotator cuff repair labral repair cyst decompression and subpectoral biceps tenodesis who has recovered beautifully. Will return to work full duty with no restrictions and he will follow-up with me on as-needed basis. [email or web address] Not available 06/15/2022 09:22:29 Plan of Treatment Reminders Order Date Submit Date Provider Last Modified By Organization Details Last Modified Time Details Appointments None recorded. Lab None recorded. [facility]erral physical therapist [facility], [address], [place], [address], 08:02:31 Procedures None recorded. Surgeries None recorded. Imaging None recorded. Medication Orders None recorded. Patient TargetsNo targets recorded. Patient Instructions Encounter Date Encounter Id Patient Instructions Last Modified By Organization Details Last Modified Time 06/15/2022 [id number] biceps tendinitis: exercises [email or web address] Not available 06/18/2022 11:04:16 Reason for Referral Physical Therapist Referral for Strain of rotator cuff of shoulder Referring Physician: French Ahuja, Orthopedic Surgery, Encounter Date: 05/04/2022 Results Created Date Observation Date Name Description Value Unit Range Abnormal Flag Note LastModifiedBy Organization Detail LastModifiedTime 12/30/1912/11/2021 MRI, shoul julita, w/o contr ast No observ ation record ed. sdorrian Not Available 2021 14:46:17 02/13/2002/12/2022 XR, magdalena julita http:/ [email or web address]/opa lweb/I ntegra tionPr ocesso r.aspx ?CMD=O LEATHA DY&ACC ESSION =[id number] [email or web address] [facility] [address] [address], 02/12/2022 08:59:07 Result Notes None recorded. Procedures Surgical History Date Name Laterality Status Provider Name and Address Organization Details Recorded Time 02/06/20 Orthopaedic Surgery completed Jacquelin Mariano [facility] 02/12/2022 08:26:53 Imaging Results Imaging Date Name Status LastModified by Organiz ation Details LastModified Time 12/11/2021 MRI, shoulder, w/o contrast completed Information not available 12/29/2021 14:46:17 02/12/2022 XR, shoulder completed [email or web address] [facility] [address], [address], 02/12/2022 08:59:07 Procedure Notes None recorded. Medical Equipment None Reported. Allergies Allergen ID Allergen Name Allergen Category Reaction Reaction Severity Criticality Documentation Date Start Date Code Code System Note Provider Name and Address Organization Details Recorded Time 696599 Product containin g penicilli n and antibioti c (product) medicatio n Not available Not available Not available 12/29/2021 08966 05 SNOMED Orlando Dorrian [facility] 2 15:43:28 Medications Name Sig Start Date Stop Date Status Note LastModified by Organization Details LastModified Time atorvastati n 10 mg tablet TAKE 1 TABLET BY MOUTH AT BEDTIME active Not Available Not Available No t Available meloxicam 15 mg tablet TAKE 1 TABLET BY MOUTH DAILY FOR 14 DAYS active Not Available Not Available No t Available FreeStyle Lancets 28 gauge USE DIRECTED FOR TESTING BLOOD SUGAR TWICE DAILY active Not Available Not Available No t Available amlodipine 5 mg tablet TAKE 1 TABLET BY MOUTH DAILY active Not Available Not Available No t Available lisinopril 40 mg tablet TAKE 1 TABLET BY MOUTH DAILY active Not Available Not Available No t Available metformin ER 500 mg tablet,exte nded release 24 hr TAKE 1 TABLET BY MOUTH TWICE DAILY active Not Available Not Available No t Available oxycodone 5 mg tablet 1-2 tabs every 4-6 hours as needed 03/23 completed Not Available Not Available Not Available rosuvastati n 20 mg tablet TAKE 1 TABLET BY MOUTH DAILY active Not Available Not Available No t Available BD Ultra-Fine Mini Pen Needle 31 gauge x 3/16 USE DAILY active Not Available Not Available No t Available amlodipine active Not Available Not Av ailable Not Available lisinopril active Not Available Not Av ailable Not Available FreeStyle Lite Meter kit USE DIRECTED FOR TESTING BLOOD SUGAR TWICE DAILY active Not Available Not Available No t Available FreeStyle Lite Strips USE DIRECTED TWICE DAILY TO TEST BLOOD SUGAR active Not Available Not Available No t Available Lantus Solostar U-100 Insulin 100 unit/mL (3 mL) subcutaneou s pen ADMINISTE R 16 UNITS UNDER THE SKIN DAILY active Not Available Not Available No t Available Lantus Solostar U-100 Insulin active Not Available Not Available Not Available Easy Touch Alcohol Prep Pads USE TWICE DAILY active Not Available Not Available No t Available Trulicity 0.75 mg/0.5 mL subcutaneou s pen injector ADMINISTE R 0.75 MG UNDER THE SKIN EVERY WEEK active Not Available Not Available No t Available Trulicity active Not Available Not Casandra ilable Not Available Vitals Date Recorded Body weight Provider Name an d Address Organization Details Last Updated DateTime 12/29/2021 396702.86 eun Orlando Finch [facility] 12/29/2021 15:43:21 Date Recorded Body mass index (BMI) Body height Provider Name and Address Organization Details Last Updated DateTime 12/29/2021 40.2 kg/m2 177.8 cm Orlando Finch [facility] 12/29/2021 15:43:25 Date Recorded Body height Provider Name an d Address Organization Details Last Updated DateTime 02/12/2022 177.8 cm Jacquelin Mariano [facility] 02/12/2022 08:25:59 Date Recorded Body mass index (BMI) Body weight Provider Name and Address Organization Details Last Updated DateTime 02/12/2022 40.2 kg/m2 668952.86 g Jacquelin [facility]ila [facility] 02/12/2022 08:26:02 Date Recorded Body height Provider Name an d Address Organization Details Last Updated DateTime 03/23/2022 177.8 cm [facility] 03/23/2022 08:54:02 Date Recorded Body mass index (BMI) Body weight Provider Name and Address Organization Details Last Updated DateTime 03/23/2022 40.2 kg/m2 191257.86 g [facility] 03/23/2022 08:54:05 Date Recorded Body height Provider Name an d Address Organization Details Last Updated DateTime 05/04/2022 177.8 cm French Dunlap [place] [facility] 05/04/2022 09:24:57 Date Recorded Body mass index (BMI) Body weight Provider Name and Address Organization Details Last Updated DateTime 05/04/2022 40.2 kg/m2 993507.86 g French Dunlap [facility] 05/04/2022 09:25:02 Date Recorded Body height Provider Name an d Address Organization Details Last Updated DateTime 06/15/2022 177.8 cm [facility] 06/15/2022 08:57:15 Date Recorded Body mass index (BMI) Body weight Provider Name and Address Organization Details Last Updated DateTime 06/15/2022 40.2 kg/m2 025287.86 g [facility] 06/15/2022 08:57:18 Social History Question Answer Notes LastModified by Organizat ion Details LastModified Time Tobacco Smoking Status Former Smoker Orlando Finch [facility] 12/29/2021 15:43:35 What Is Your Level Of Alcohol Consumption? None [email or web address] Information not available 03/23/2022 What Is Your Level Of Caffeine Consumption? Occasional Information not available 12/29/2021 Do You Or Have You Ever Used E-cigarettes Or Vape? 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 Yes Information not available 12/29/2021 Do You Or Have You Ever Used Smokeless Tobacco? Never Used Smokeless Tobacco Information not available 12/29/2021 How Much Tobacco Do You Smoke? No Information not available 12/29/2021 How Many Years Have You Smoked Tobacco? 3 Information not available 12/29/2021 Sex: Unknown Functional Status Question Answer Note LastModified by Organizat ion Details LastModified Time What is your exercise level? Occasional Information not available 12/29/2021 Mental Status None recorded. Family History Nothing Reported. Medical History Condition Response HIV or AIDS N High Blood Pressure Y MRSA N Weight Gain / Loss N Angina, Heart Failure or Attack N Night Sweats N Osteoarthritis / Rheumatoid arthritis / Other N Cancer N Stroke N Visual Loss or Glaucoma N Heart Problems N Emphysema / Chronic Bronchitis N Reaction to General/Local Anesthesia N Hepatitis / Jaundice N Kidney / Bladder Infections N Bleeding Disorder N Chemical Dependency / Alcoholism N Thyroid Disorder N Pulmonary Embolism N Irregular Heartbeat N Any Other Significant Medical Issues N Hearing Loss N Seizures / Epilepsy N Ulcer / Stomach Bleeding / Indigestion N Blood Clots / Phlebitis N Depression or Anxiety N Diabetes Y Psoriasis / Skin Rash N Heart Disease N Asthma / Shortness of Breath / Sleep Home Health Occupational Therapist ea (please specify) N Past Encounters Encounter ID Performer Location Encounter Start Date Encounter Closed Date Diagnosis/Indication Diagnosis SNOMED-CT Code Diagnosis ICD10 Code Diagnosis Note [id number] ALESHA SOTO [place] Office [address] [place] [id number] 12/29/2021 14:24:27 12/29/2021 16:11:43 Strain of rotator cuff of shoulder 100430194 S46.011A [id number] ALESHA SOTO [place] [id number] 1 02/12/2022 08:05:23 02/16/2022 16:48:40 Strain of rotator cuff of shoulder 936122153 S46.011D Impingemen t syndrome of right shoulder region 2983658820 12208 M75.41 Biceps tendinitis 452424 007 M75.21 [id number] ALESHA SOTO [place] [id number] 1 03/23/2022 08:42:20 03/23/2022 09:16:12 Strain of rotator cuff of shoulder 653258869 S46.011D [id number] ALESHA SOTO [address] 1 05/04/2022 09:04:53 05/04/2022 09:45:28 Strain of rotator cuff of shoulder 594526275 S46.011D S/P Arthroscop ic Rotator Cuff Repair Extremity: {{Left Rig ht*}} Evaluate and Treat:as indicated Exercises: ROM, FUNCTIONAL STRENGTHEN ING Modalities :as needed Frequency: BIW Duration:6 -8 weeks [id number] FRENCH AHUJA MD [place] [address] 1 06/15/2022 08:22:29 06/15/2022 09:06:21 Biceps tendinitis 536579018 M75.21 Strain of rotator cuff of shoulder 188643098 S46.011D S/P Arthroscop ic Rotator Cuff Repair Extremity: {{Left Rig ht*}} Evaluate and Treat:as indicated Exercises: ROM, FUNCTIONAL STRENGTHEN ING Modalities :as needed Frequency: BIW Duration:6 -8 weeks Health Concerns Section Related Observation LastModified by Organization Detai ls LastModified Time None Recorded Concern Status LastModified by Organization Details LastModified Time None Recorded Advance Directives Directive None Recorded Payers Encounter Date Sequence Insurance Name Policy Number Policy Queen Covered Member ID Queen Member ID Guarantor Name 12/29/2021 [facility] [employer] Blu Zimmerman 02/12/2022 [facility] [employer] Blu Zimmerman 05/04/2022 [facility] Blu Zimmerman 06/15/2022 [facility] Blu Zimmerman Notes Date Note Type Note Provider Name and Address Organization Details Recorded Time 12/29/2021 text/html Blu comes in today as an initial evaluation for Workmen's Comp. He has a Workmen's Comp. injury from November 25, 2021 where he was lifting a pallet on a pallet sina and injured his right shoulder and felt a pop. He has had significant anterior shoulder pain since that time. He has been in physical therapy but not getting any improvement. He has no prior history of problems with this right shoulder. He is right-hand dominant. It has been 5 weeks since his injury and he is still in a sling and quite uncomfortable. ALESHA SOTO [address] [place] [address], [phone], [facility] 01/01/2022 09:57:35 02/12/2022 text/html 31-year-old male who is here for first postop appointment. He is accompanied by his . He is status post #1 right shoulder arthroscopic subscapularis rotator cuff repair, #2 right shoulder arthroscopic debridement of superior labral tear and undersurface supraspinatus tear, #3 right shoulder arthroscopic subacromial decompression, #4 right shoulder arthroscopic posterior labral cyst debridement, #5 right shoulder arthroscopic posterior labral repair using 2 [employer] mini Raptor knotless anchors, #6 right shoulder open subcu pectoral biceps tenodesis on 02/05/2022. Overall, all considering he feels he is doing quite well. He has been wearing his sling as instructed. He has been taking the pain medication as needed. He will schedule physical therapy to begin 4 weeks postop. ALESHA SOTO [address] [place] [address], [phone], [facility] 02/17/2022 08:44:56 03/23/2022 text/html J Carlos comes in to day for second postoperative visit. He is status post a right shoulder scopic rotator cuff repair subpectoral biceps tenodesis labral cyst debridement and labral repair. Overall he is doing very well now 7 weeks status post the surgery. 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 He has been doing therapy twice a week and doing therapy on his own daily. He is overall pleased with his progress and he is already more comfortable than he was prior to surgery. ALESHA SOTO [address] [place], [phone], [facility] 03/25/2022 09:37:58 05/04/2022 text/html He comes in [facility] for his 3-month postop of his superior border subscapularis with repair. His labral repair cyst decompression and open subpectoral biceps tenodesis February 05, 2022. He actually is regained his motion but he continues to have pain and discomfort and weakness. He is working hard with therapy and he has pain at end ranges of motion. 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 ALESHA SOTO [address] [place] [address], [phone], [facility] 05/14/2022 11:26:53 06/15/2022 text/html This is his 4-mo nth follow-up status post his right shoulder arthroscopic rotator cuff repair labral repair paralabral cyst decompression and open subpectoral biceps tenodesis February 05, 2022. He is doing very well. He has no complaints. 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 FRENCH AHUJA MD [address] [place] [address], [phone], [facility] 06/24/2022 08:12:13
== END 2024-08-07 16:00 | disposition home or self-care (01) ==
PROVIDERS: PCP Nurse Practitioner Family; Visit Provider Nurse Practitioner Family
DX: G47.33 Obstructive sleep apnea (adult) (pediatric) (principal); R06.83 Snoring; E66.9 Obesity, unspecified
CPT/HCPCS: 99214

== ENCOUNTER → 2024-08-07 15:18 | Outpatient (BNVA) | payer OTHER, SELFPAY | PROVIDERS: PCP Nurse Practitioner Family; Visit Provider Nurse Practitioner Family ==

== ENCOUNTER → 2024-08-17 07:56 | Outpatient (BNVA) | payer OTHER, SELFPAY | PROVIDERS: PCP Nurse Practitioner Family; Visit Provider Physician Assistant Surgical ==

== ENCOUNTER 2024-08-27 07:58 | Outpatient (AMB) | payer OTHER, SELFPAY ==
--- OUTSIDE RECORDS SUMMARY | 2024-08-27 08:00 | XMS_ITS | Data Portability ---
Author Organization ALESHA Olivera s, [address] Address [address] [place] [address] Care Team Providers Care Heat Treating Operator Name Role Phone [facility] Primary Care Provider Assessment No assessment recorded. Plan of Treatment Reminders Order Date Submit Date Provider Last Modified By Organization Details Last Modified Time Details Appointments None recorded. Lab rapid SARS CoV 2 Ag, QL IA, respiratory specimen 2021 022 [email or web address] [facility], [address] [place] [address], [phone], 19:05:55 Referral None recorded. Procedures None recorded. Surgeries None recorded. Imaging None recorded. Medication Orders None recorded. Patient TargetsNo targets recorded. Patient Instructions Encounter Date Encounter Id Patient Instructions Last Modified By Organization Details Last Modified Time 06/26/2022 [id number] cough: care instructions [email or web address] Not available 06/26/2022 19:05:55 Reason for Referral None Reported. Results Created Date Observation Date Name Description Value Unit Range Abnormal Flag Note LastModifiedBy Organization Detail LastModifiedTime 06/26/2006/26/2022 rapid SARS CoV 2 Ag, QL IA, respi rator y speci men Unknown Analyte Normal =Negat shonda Not Available [facility]el [facility] [address] [place] [address], [phone], 06/26/2022 18:23:19 06/26/20 22 06/26/2022 rapid SARS CoV 2 Ag, QL IA, respi rator y speci men Unknown Analyte negati ve Not Available axel agosto [address], [phone], 06/26/2022 18:23:19 Result Notes None recorded. Problems Name Problem SNOMED Code Status Onset Date Resolution Date Notes Provider Name and Address Organization Details Recorded Time Hypertensive disorder 21719750 Active 2021 KI schwab, [place] - [facility] 2 18:20:59 Diabetes mellitus 43785072 Active 2021 KI ELLIS null, [place] - [facility] 2 18:21:07 Problem [...] Name and Address Organization Details Recorded Time 76472 Product containin g penicilli n and antibioti c (product) medicatio n facial swelling Not available high 06/26/2022 70801 05 SNOMED [facility], [place] - [facility] [...] Not Available Vitals Date Recorded Body weight Body mass index (BMI) Body height Oxygen saturation Oxygen saturation in Arterial blood by Pulse oximetry Heart rate Respiratory rate Body temperature Systolic blood pressure Diastolic blood pressure Provider Name and Address Organization Details Last Updated DateTime 2 059727. 02 g 37.3 kg/m2 177.8 cm 97 % 97 % 95 /min 18 /min 98.1 [degF] 131 mm[Hg] 88 mm[Hg] KI ELLIS [place] - [facility] 2 18:25:35 Social History Question Answer Notes LastModified by Organizat ion Details LastModified Time Tobacco Smoking Status Never Smoker ALESHA Ge - [facility] 06/26/2022 18:21:35 What Is [...] SNOMED-CT Code Diagnosis ICD10 Code Diagnosis Note [id number] [address] [address] [place] [phone] 04/06/2021 14:14:33 04/06/2021 15:37:30 [id number] 20995_Omar Youssefmo riar [address] [place] [phone] 03/11/2021 13:49:40 03/11/2021 16:30:48 [id number] [address] [address] [place] [phone] 11/10/2020 12:52:23 11/10/2020 14:20:59 [id number] ALESHA IZQUIERDO [address] [place] [address] 06/26/2022 15:43:00 06/26/2022 19:07:30 COVID-19 225373536 U07.1 Resolving on Paxlovid - Need COVID test for Work Health Concerns Section Related Observation LastModified by Organization Detai ls LastModified Time None Recorded Concern Status LastModified by Organization Details LastModified Time None Recorded Advance Directives Directive None Recorded Payers Encounter Date Sequence Insurance Name Policy Number Policy Queen Covered Member ID Queen Member ID Guarantor Name 11/10/2020 1 [facility] [employer] TYPE I (HMO) [id number] Blu D Samek [id number] Blu Samek 03/11/2021 1 [facility] [employer] TYPE I (HMO) [id number] Blu D Samek [id number] Blu Samek 04/06/2021 1 [facility] [employer] TYPE I (HMO) [id number] Blu D Samek [id number] 02 Blu Samek 06/26/2022 1 [facility] [employer] TYPE I (HMO) [id number] Blu D Samek [id number] Blu Samek Notes Date Note Type Note Provider Name and Address Organization Details Recorded Time 2 text/html CoughReported bypatient.source of patient informationInformation obtained from patient; Patient arrived at Urgent Care ambulatory Severity:improving Associated Symptoms:no fever; no chills; no chest pain; no heartburn; no nausea; no vomiting; no edema ALESHA IZQUIERDO [address] [place], [address], [place] - [facility] 06/26/2022 19:09:41
--- OUTSIDE RECORDS SUMMARY | 2024-08-27 08:01 | XMS_ITS | Data Portability ---
Author Organization [facility] geovanni [facility] [place] Office Address [address] [place] [address] Care Team Providers Care Saute Chef Name Role Phone EDIN GRAVES Primary Care Provider JEFFREY MEJIAS Horticultural Manager Unavailable Assessment Encounter Date Assessment Date Assessment [...] 2 weeks. 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 He is capable of doing a job [...] recorded. Referral physical therapist referral [email or web address], [address], [place], [address], 08:02:31 Procedures None recorded. Surgeries None recorded. Imaging None recorded. Medication Orders None recorded. Patient TargetsNo targets recorded. Patient Instructions Encounter Date Encounter Id Patient Instructions Last Modified By Organization Details Last Modified Time 06/15/2022 [id number] biceps tendinitis: exercises [email or web address] Not available 06/18/2022 11:04:16 Reason for Referral Physical Therapist Referral for Strain of rotator cuff of shoulder Referring Physician: French Ahuja, Orthopedic Surgery, Encounter Date: 05/04/2022 Results Created Date Observation Date Name Description Value Unit Range Abnormal Flag Note LastModifiedBy Organization Detail LastModifiedTime 12/30/19 22 12/11/2021 MRI, shoyevgeniy julita, w/o contr ast No observ ation record ed. sdorrian Not Available 2021 14:46:17 02/13/2002/12/2022 XR, magdalena julita http:/ [email or web address] ntegra tionPr ocesso r.[email or web address] ?CMD=O LEATHA DY&ACC ESSION =[id number] [id number] [email or web address] [facility] [address] [address], 02/12/2022 08:59:07 Result Notes None recorded. Procedures Surgical History Date Name Laterality Status Provider Name and Address Organization Details Recorded Time 02/06/20 Orthopaedic Surgery completed Jacquelin Mariano [facility] 02/12/2022 08:26:53 Imaging Results Imaging Date Name Status LastModified by Organiz ation Details LastModified Time 12/11/2021 MRI, shoulder, w/o contrast completed Information not available 12/29/2021 14:46:17 02/12/2022 XR, shoulder completed [email or web address] [facility] [address], [address], 02/12/2022 08:59:07 Procedure Notes None recorded. Medical Equipment None Reported. Allergies Allergen ID Allergen Name Allergen Category Reaction Reaction Severity Criticality Documentation Date Start Date Code Code System Note Provider Name and Address Organization Details Recorded Time 440382 Product containin g penicilli n and antibioti c (product) medicatio n Not available Not available Not available 12/29/2021 70192 05 SNOMED Orlando Finch [facility] [place] [facility] 2 15:43:28 Medications Name [...] weight Body mass index (BMI) Body height Provider Name and Address Organization Details Last Updated DateTime 12/29/2021 582679.86 g 40.2 kg/m2 177.8 cm Orlando Finhc [facility] 12/29/2021 15:43:25 Date Recorded Body height Body mass index (BMI) Body weight Provider Name and Address Organization Details Last Updated DateTime 02/12/2022 177.8 cm 40.2 kg/m2 928683.86 g Jacquelin Mistryann [facility] 02/12/2022 08:26:02 Date Recorded Body height Body mass index (BMI) Body weight Provider Name and Address Organization Details Last Updated DateTime 03/23/2022 177.8 cm 40.2 kg/m2 802694.86 g Janeth [facility] 03/23/2022 08:54:05 Date Recorded Body height Body mass index (BMI) Body weight Provider Name and Address Organization Details Last Updated DateTime 05/04/2022 177.8 cm 40.2 kg/m2 247396.86 g French Dunlap [facility] 05/04/2022 09:25:02 Date Recorded Body height Body mass index (BMI) Body weight Provider Name and Address Organization Details Last Updated DateTime 06/15/2022 177.8 cm 40.2 kg/m2 484047.86 g Janeth [facility] 06/15/2022 08:57:18 Social History Question Answer Notes LastModified by Organizat ion Details LastModified Time Tobacco Smoking Status Former Smoker Orlando Finch [facility] 12/29/2021 15:43:35 What Is Your Level Of Alcohol Consumption? None [email or web address] Information not available 03/23/2022 What Is Your Level Of Caffeine Consumption? Occasional Information not available 12/29/2021 Do You Or Have You Ever Used E-cigarettes Or Vape? 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 Medical History Condition Response Blood Clots / Phlebitis N Heart Problems N HIV or AIDS N Depression or Anxiety N High Blood Pressure Y Irregular Heartbeat N MRSA N Emphysema / Chronic Bronchitis N Any Other Significant Medical Issues N Reaction to General/Local Anesthesia N Hepatitis / Jaundice N Weight Gain / Loss N Kidney / Bladder Infections N Diabetes Y Bleeding Disorder N Hearing Loss N Angina, Heart Failure or Attack N Night Sweats N Seizures / Epilepsy N Osteoarthritis / Rheumatoid arthritis / Other N Cancer N Stroke N Chemical Dependency / Alcoholism N Ulcer / Stomach Bleeding / Indigestion N Visual Loss or Glaucoma N Thyroid Disorder N Psoriasis / Skin Rash N Heart Disease N Pulmonary Embolism N Asthma / Shortness of Breath / Sleep Neurosurgery Physician ea (please specify) N Past Encounters Encounter ID Performer Location Encounter Start Date Encounter Closed Date Diagnosis/Indication Diagnosis SNOMED-CT Code Diagnosis ICD10 Code Diagnosis Note [id number] ALESHA SOTO [address] [address] 12/29/2021 14:24:27 12/29/2021 16:11:43 Strain of rotator cuff of shoulder 042813595 S46.011A [id number] ALESHA SOTO [address] [address] 02/12/2022 08:05:23 02/16/2022 16:48:40 Strain of rotator cuff of shoulder 997137141 S46.011D Impingemen t syndrome of right shoulder region 4543207210 64712 M75.41 Biceps tendinitis 611636 007 M75.21 [id number] ALESHA SOTO [address] [address] 03/23/2022 08:42:20 03/23/2022 09:16:12 Strain of rotator cuff of shoulder 420295446 S46.011D [id number] ALESHA SOTO [address] [address] 05/04/2022 09:04:53 05/04/2022 09:45:28 Strain of rotator cuff of shoulder 314180041 S46.011D S/P Arthroscop ic Rotator Cuff Repair Extremity: {{Left Rig ht*}} Evaluate and Treat:as indicated Exercises: ROM, FUNCTIONAL STRENGTHEN ING Modalities :as needed Frequency: BIW Duration:6 -8 weeks [id number] FRENCH AHUJA MD [facility] Office [address] [place] [id number] 06/15/2022 08:22:29 06/15/2022 09:06:21 Biceps tendinitis 481811441 M75.21 Strain of rotator cuff of shoulder 202629813 S46.011D S/P Arthroscop ic Rotator Cuff Repair [...] ID Queen Member ID Guarantor Name 12/29/2021 [facility] [employer] Blu Zimmerman 02/12/2022 [facility] [employer] Blu Elsie 05/04/2022 [facility] [employer] Blu Zimmerman 06/15/2022 [facility] [employer] Blu Zimmerman Notes [...] a sling and quite uncomfortable. ALESHA SOTO [address] [place], [address], [facility] 01/01/2022 09:57:35 02/12/2022 text/html [...] to begin 4 weeks postop. ALESHA SOTO [address] [place], [address], [facility] 02/17/2022 08:44:56 03/23/2022 text/html J Carlos comes in to [facility] for second postoperative visit. He is status post a right shoulder scopic rotator cuff repair subpectoral biceps tenodesis labral cyst debridement and labral repair. Overall he is doing very well now 7 weeks status post the surgery. 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 He has been doing therapy twice a week and doing therapy on his own daily. He is overall pleased with his progress and he is already more comfortable than he was prior to surgery. ALESHA SOTO [address] [place], [address], [facility] 03/25/2022 09:37:58 05/04/2022 text/html [facility] superior border subscapularis with repair. His labral repair cyst decompression and open subpectoral biceps tenodesis February 05, 2022. He actually is regained his motion but he continues to have pain and discomfort and weakness. He is working hard with therapy and he has pain at end ranges of motion. He works as a watch mechanic which is a very physically demanding job. ALESHA SOTO [address] [place], [address], [facility] 05/14/2022 11:26:53 06/15/2022 text/html This is his 4-mo nth follow-up status post his right shoulder arthroscopic rotator cuff repair labral repair paralabral cyst decompression and open subpectoral biceps tenodesis February 05, 2022. He is doing very well. He has no complaints. 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 FRENCH AHUJA MD [address] [place], [address], [facility] 06/24/2022 08:12:13
--- NOTE | 2024-08-27 10:32 | MHC.OFFVISWM ---
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 Allergies penicillin G Allergy (Unknown, Verified 08/27/24 10:32) swelling penicillin V Allergy (Unknown, Verified 08/27/24 10:32) unknown Penicillins [PCN] Allergy (Unknown, Verified 08/27/24 10:32) UNKNOWN Medication List - Last Reconciled 08/27/24 by Max Jenkins MD alcohol swabs (Alcohol Prep Pads) 1 pad topical BID 60 days amlodipine 5 mg PO DAILY 90 days blood pressure kit-extra large daily use blood sugar diagnostic (FreeStyle Lite Strips) bid blood-glucose meter (FreeStyle Lite Meter kit) bid blood-glucose meter,continuous (Dexcom G6 Placer Miner) tid blood-glucose sensor (Dexcom G6 Sensor device) tid Comfort EZ Pen [place] (pen needle, diabetic) daily NS dulaglutide 3 mg (0.5 mL) subcut QWEEK insulin glargine (Lantus Solostar U-100 Insulin) 25 units (0.25 mL) subcut DAILY lancets (FreeStyle Lancets) bid lisinopril 40 mg PO DAILY 90 days HPI HPI [employer]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 BMI 38.4: Details: Start time: 10.10am, End time: 10.55am ?I spent 40 minutes speaking with the patient on the phone plus an additional 5 minutes reviewing and updating records for a total of 45 minutes HPI Comments Details: No previous weight loss efforts: intermittent fasting, self diets Wakes up: 5am, Sleeps: 9pm Breakfast: skips but [employer] don[employer] eggs with cheese Lunch:12pm (sandwich) Dinner: 6pm (pasta with meat, meatloaf, tacos) Snacks: 10am (chips), 4pm (carrots, celery, berries, chips), (chips after dinner occasionally) Exercise: has a stationary bike Fluids: Coffee: none, ice/hot tea: 1-2/day (black), soda: regular Coke 1-2/d, juice: none, ETOH: 2/wk (4-6 shots Vodka or Rum) [facility] Medical History (Updated 08/27/24 @ 10:53 by Max Jenkins MD) Insulin dependent diabetes mellitus type IA BMI 38.0-38.9,adult Obesity Diabetes Newly diagnosed diabetes COVID Hyponatremia Viral pneumonia HTN (hypertension) Surgical History S/P right rotator cuff repair Family History Mother HTN (hypertension) Diabetes mellitus Arthritis Social History Housing: House Patient Tobacco Use Status: Former Tobacco user Years Smoked: 10 years ago e-Cigarette/Vaping Use: Never Used Second Hand Smoke Exposure: No service: No Current occupational status: employed Current occupation: [employer] Current occupational exposures/hazards: No Cognitive needs: No Hearing needs: No Vision needs: No Telehealth Telehealth Telehealth Platform: Telephone Location of provider rendering services: practice address Location of patient: address on file Patient Identification confirmed using: Name, : Yes Telehealth method: voice only Patient verbally consented to treatment: Yes Patient verbally consented to billing insurance company: Yes Patient informed of any privacy concerns related to visit: Yes Minutes spent on Phone/Video with Pt.: 43 Assessment & Plan Assessment & Plan (1) Obesity: Code(s): E66.9 - Obesity, unspecified Category: Medical Qualifiers: Obesity type: due to excess calories Obesity classification: adult class 2 (BMI 35 - 39.9) Serious obesity comorbidity presence: with serious comorbidity Body mass index: BMI 38.0-38.9 Qualified Code(s): E66.812 - Obesity, class 2; E66.01 - Morbid (severe) obesity due to excess calories; Z68.38 - Body mass index [BMI] 38.0-38.9, adult Plan: We discussed in detail the available therapeutic options: 1) his insurance requires participation in our lifestyle intervention program for 3 months before use of anti-obesity medications is considered. We discussed about the use of our [employer] software argenis for the meal and exercise plan. 2) We also discussed about the?? lap sleeve gastrectomy. I emphasized the importance of close follow-up, adherence to instructions and good communication. The surgery does not replace the need to change your lifestlyle which is the cause of the obesity problem. The surgery provides the motivation to try again to change your lifestyle, it reduces the appetite and make the transition to a better lifestyle easier and doubles the amount of weight you would lose compared to doing the lifestyle change without the surgery. You will need to be on a liquid diet with protein shakes for 2 weeks before surgery to maximize weight loss and boost your nutritional status to recover better from surgery and also for the first two weeks after surgery to let the stomach heal before we introduce other foods. After the first 2 weeks we will introduce protein bars and soft foods like scrambled eggs, cottage cheese and yogurt and after the 6th week will introduce meat, fish and cooked vegetables in small amounts. Over time you should be able to eat everything in small amounts. Side effects like nausea, vomiting, heartburn or abdominal pain are not common in the practice unless you are not following in the practice. This operation requires lifetime commitment to following in our practice and communication with me. You will much less weight and experience side effects if you don?t communicate or not following in the practice. Complications are rare and in our practice is about 1/10 of the national average. The patient will consider these options and get back to me with his decision. Medications: Refilled dulaglutide 3 mg (0.5 mL) subcut QWEEK 2 mL 1RF
[2024-08-27 10:54] VITALS: BMI 38.4
== END 2024-08-27 10:56 | disposition home or self-care (01) ==
LOC: HO.HBS 07:58
PROVIDERS: PCP Nurse Practitioner Family; Visit Provider Surgery
DX: E66.812 Obesity, class 2 (principal); Z68.38 Body mass index [BMI] 38.0-38.9, adult
CPT/HCPCS: 98010

== ENCOUNTER 2024-09-06 13:26 | Outpatient (AMB) | payer OTHER, SELFPAY ==
[2024-09-06 13:33] VITALS: BP 134/86; PULSE 83; O2SAT 97; BMI 38.3
--- NOTE | 2024-09-06 13:33 | MHC.PC.OV ---
Vital Signs 09/06/24 13:33 Height 5 ft 10 in Weight 267 lb BMI 38.3 BP 134/86 Blood Pressure Location Rt brachial Position Sitting Pulse 83 Pulse Source Pulse Oximeter Pulse Oximetry (%) 97 Intake Visit Reasons: 4m follow up Allergies penicillin G Allergy (Unknown, Verified 09/06/24 13:34) swelling penicillin V Allergy (Unknown, Verified 09/06/24 13:34) unknown Penicillins [PCN] Allergy (Unknown, Verified 09/06/24 13:34) UNKNOWN Tobacco use date assessed: 09/06/24 Dental Screening Dental Screen Date: 09/06/24 Did you have a dental visit in the last 12 months?: Yes Did you have a dental problem in the last 6 months where you did not have access to dental care?: No Was dental information given to patient?: Patient has dentist HPI 4m follow up HPI Details Chief Complaint Follow-up for diabetes management and recent viral infection. History of Present Illness The patient is a 34-year-old male presenting with diabetes management concerns and recent viral infection symptoms. The patient has a history of Diabetes Mellitus with recent complications surrounding insurance, affecting access to care. The Hemoglobin A1c is noted to be elevated at 9.0, indicating poor glycemic control. The patient denies neuropathy, polyuria, or polydipsia. Previous diabetes management adjustments or interventions are not detailed, but the patient seeks a referral to endocrinology for further evaluation and management optimization. Additionally, the patient reports the presence of an erythematous macular rash on the medial aspect of the right ankle. The rash was initially pruritic but is no longer itchy, and hydrocortisone cream is being applied to the area. Over the weekend, the patient experienced viral infection symptoms, including significant chest congestion, cough, and raspy breathing. There is a recent report of these respiratory symptoms improving symptomatically. The lung examination was documented to be clear at the visit. Social History Health Maintenance - A1c monitoring discussed. Current level is 9.0. - Eye exam is up to date. Review of Systems - Respiratory: Reports chest congestion and raspy breathing; improvement noted. - Dermatologic: Reports erythematous rash on the right ankle. Physical Exam General: Cooperative, healthy appearing, comfortable, no acute distress and well developed, obese Orientation: Patient oriented x3 Limitations: No limitations Head: Normal to inspection Ears: Hearing grossly normal bilaterally Nose: Normal external nose present Face and sinus: Normal facial exam Eyes: Appearance normal, both eyes and all related structures Neck: Normal visual inspection and Yes full ROM Respiratory: Normal respiratory effort and able to speak in complete sentences. Clear to auscultation bilaterally Cardiovascular: Regular rate and rhythm. Normal S1 and S2 GI: Normal to inspection. Soft to palpation and nontender Skin: Slight erythematous macular rash to the medial aspect of the right ankle, no longer itchy Neuro: Patient oriented x3. + sensation with use of monofilament Extremities: Normal to inspection except for the right foot, which has a slight erythematous macular rash on the medial aspect of the ankle, healing Results - Labs: Hemoglobin A1c at 9.0. - Tests: Viral swab planned for respiratory symptoms. Plan - Address diabetes management by referring to endocrinology for further management and optimization of glycemic control. - Monitor and manage the right ankle rash with hydrocortisone application. Continue to assess improvement or resolution. - Conduct a viral swab for recent respiratory symptoms to determine viral etiology. - Encourage patient to maintain up-to-date routine eye examinations as part of diabetes management. Discussion Notes I discussed with the patient the current elevation of his Hemoglobin A1c at 9.0, indicating that his glycemic control requires optimization. I explained the referral to endocrinology for specialized diabetes care and potential adjustments in his treatment plan. Regarding his recent viral symptoms, I advised performing a viral swab to identify the causative agent and ensure appropriate management. I reiterated the importance of routine follow-up and monitoring to ensure effective management of both chronic and acute conditions. We also discussed the use of hydrocortisone for the rash and watching for improvement unless symptoms persist or worsen. Patient Instructions - Follow up with endocrinology for diabetes management. - Continue applying hydrocortisone to the rash as directed. - Monitor any changes or persistence of the rash and respiratory symptoms. - Patient to perform viral swab as planned. - Maintain regular eye exams as advised. - Seek medical attention if symptoms worsen or new ones arise. [facility] Medical History Insulin dependent diabetes mellitus type IA BMI 38.0-38.9,adult Obesity Diabetes Newly diagnosed diabetes COVID Hyponatremia Viral pneumonia HTN (hypertension) Surgical History S/P right rotator cuff repair Family History Mother HTN (hypertension) Diabetes mellitus Arthritis Social History Housing: House Patient Tobacco Use Status: Former Tobacco user Years Smoked: 10 years ago e-Cigarette/Vaping Use: Never Used Second Hand Smoke Exposure: No service: No Current occupational status: employed Current occupation: [employer] Current occupational exposures/hazards: No Cognitive needs: No Hearing needs: No Vision needs: No Questionnaire PHQ-9 Over the last 2 weeks, how often have you been bothered by any of the following problems? 1. Little interest or pleasure in doing things: not at all 2. Feeling down, depressed, or hopeless: not at all 3. Trouble falling or staying asleep, or sleeping too much: not at all 4. Feeling tired or having little energy: not at all 5. Poor appetite or overeating: not at all 6. Feeling bad about yourself - or that you are a failure or have let yourself or your family down: not at all 7. Trouble concentrating on things, such as reading the newspaper or watching television: not at all 8. Moving or speaking so slowly that other people could have noticed. Or the opposite - being so fidgety or restless that you have been moving around a lot more than usual: not at all 9. Thoughts that you would be better off or of hurting yourself in some way: not at all Total score: 0 Depression Screening Interpretation: Negative Depression Screening Done: Yes 93171 - PHQ-9 Billing: Yes Source: Developed by Drs. Konrad Rendon, Esther Buck, Jorge Duke and colleagues, with an educational tabitha from [employer]. Thrive Questionnaire Date Thrive assessed: 09/06/24 I am a: Patient What is your living situation today?: I choose not to answer this question Within the past 12 months, did the food you bought not last and you didn't have the money to get more?: I choose not to answer this question Within the past 12 months, did you worry whether your food would run out before you got money to buy more?: I choose not to answer this question Do you have trouble paying for medicines?: I choose not to answer this question Do you have trouble getting transportation to medical appointments?: I choose not to answer this question Do you have trouble paying your heating and electricity bill?: I choose not to answer this question Do you have trouble taking care of your child, family member or friend?: I choose not to answer this question Do you have trouble with day-to-day activities such as bathing, preparing meals, shopping, managing finances, etc.?: I choose not to answer this question Are you currently unemployed and looking for a job?: I choose not to answer this question Are you interested in more education?: I choose not to answer this question Please select the resources that you would like help with: None Currently or been in a relationship where the following occur: I choose not to answer THRIVE Score: 0 AUDIT C Alcohol Use Questionnaire (AUDIT-C) 1. How often do you have a drink containing alcohol?: Never 3. How often do you have six or more drinks on one occasion?: Never Total Score: 0 Score Reviewed/Action Taken: Yes ANGEILCA-7 AMB Questionnaire ANGELICA-7 Date ANGELICA - 7 assessed: 09/06/24 Feeling nervous, anxious, or on edge: 0 = Not at all Not being able to stop or control worryin = Not at all Worrying too much about different things: 0 = Not at all Trouble relaxin = Not at all Being so restless that it is hard to sit still: 0 = Not at all Becoming easily annoyed or irritable: 0 = Not at all Feeling afraid as if something awful might happen: 0 = Not at all Total ANGELICA-7 score (0-4 normal; 5-9 mild; 10-14 moderate; 15-21 severe): 0 Source: Developed by Drs. Konrad Rendon, Esther Buck, Jorge Duke and colleagues, with an educational tabitha from [employer]. ANGELICA-7 Assessment Billing ANGELICA-7 Assessment Tool: ANGELICA-7 Assessment 73465 Physical exam (Primary Care) Vital Signs: Last Vital Signs Pulse 83 09/06/24 13:33 BP 134/86 09/06/24 13:33 Pulse Ox 97 09/06/24 13:33 BMI result Body Mass Index 38.3 Tobacco/Smoking Status: Tobacco use Status Tobacco use date assessed 09/06/24 09/06/24 13:35 Patient Tobacco Use Status Former Tobacco user 09/06/24 13:35 e-Cigarette/Vaping Use Never Used 09/06/24 13:35 PHQ-9: PHQ-9 Score PHQ-9: Total score 0 09/06/24 13:38 Depression Screening Interpretation: Negative Thrive Assessment: Date of Thrive Assessment Date Thrive assessed 09/06/24 09/06/24 13:38 Currently or been in a relationship where the following occur: I choose not to answer Coding Level of Care Code Est Pt Level 3 (71710) Diagnoses Viral illness B34.9 Diabetes E11.9 Additional Codes ANGELICA-7 Assessment Billing - ANGELICA-7 Assessment Tool: ANGELICA-7 Assessment 26635 ([id number]) PHQ-9 - 39948 - PHQ-9 Billing: Yes ([id number]) Assessment & Plan Assessment & Plan (1) Viral illness: Code(s): B34.9 - Viral infection, unspecified Category: Medical (2) Diabetes: Code(s): E11.9 - Type 2 diabetes mellitus without complications Category: Medical Plan . Orders: Orders Resp Pathogen Panel - [facility] [place] B34.9 - Viral infection, unspecified Referrals Endocrinology Referral E11.9 - Type 2 diabetes mellitus without complications
--- OUTSIDE RECORDS SUMMARY | 2024-09-06 14:22 | XMS_ITS | Data Portability ---
Author Organization [facility] Office Address [address] [place] [address] Care Team Providers Care Metal Trimmer Name Role Phone EDIN GRAVES Primary Care Provider JEFFREY MEJIAS Cpr Instructor Unavailable Assessment Encounter Date Assessment Date Assessment [...] weeks. 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 He is capable of doing a job [...] recorded. Referral physical therapist [facility], [address], [place], [address], 08:02:31 Procedures None recorded. Surgeries None recorded. Imaging None recorded. Medication Orders None recorded. Patient TargetsNo targets recorded. Patient Instructions Encounter Date Encounter Id Patient Instructions Last Modified By Organization Details Last Modified Time 06/15/2022 [id number] biceps tendinitis: exercises [email or web address] Not available 06/18/2022 [...] tionPr ocesso r.aspx ?CMD=O LEATHA DY&ACC ESSION =[id number] [email or web address] [facility] [address] [address], 02/12/2022 08:59:07 Result Notes None recorded. Procedures Surgical History Date Name Laterality Status Provider Name and Address Organization Details Recorded Time 02/06/20 Orthopaedic Surgery completed Jacquelin Mariano [facility] 02/12/2022 08:26:53 Imaging Results Imaging Date Name Status LastModified by Organiz ation Details LastModified Time 12/11/2021 MRI, shoulder, w/o contrast completed Information not available 12/29/2021 14:46:17 02/12/2022 XR, shoulder completed [email or web address] [facility] [address], [address], 02/12/2022 08:59:07 Procedure Notes None recorded. Medical Equipment None Reported. Allergies Allergen ID Allergen Name Allergen Category Reaction Reaction Severity Criticality Documentation Date Start Date Code Code System Note Provider Name and Address Organization Details Recorded Time 333687 Product containin g penicilli n (product) medicatio n Not available Not available Not available 12/29/2021 40163 3831 SNOMED Orlando Dorrian [facility] 2 15:43:28 Medications Name [...] Address Organization Details Last Updated DateTime 12/29/2021 170235.86 g 40.2 kg/m2 177.8 cm Orlando Finch [facility] 12/29/2021 15:43:25 Date Recorded Body height Body mass index (BMI) Body weight Provider Name and Address Organization Details Last Updated DateTime 02/12/2022 177.8 cm 40.2 kg/m2 150037.86 g Jacquelin Mariano [facility] 02/12/2022 08:26:02 Date Recorded Body height Body mass index (BMI) Body weight Provider Name and Address Organization Details Last Updated DateTime 03/23/2022 177.8 cm 40.2 kg/m2 429469.86 g Janeth [facility] 03/23/2022 08:54:05 Date Recorded Body height Body mass index (BMI) Body weight Provider Name and Address Organization Details Last Updated DateTime 05/04/2022 177.8 cm 40.2 kg/m2 278646.86 g French Dunlap [facility] 05/04/2022 09:25:02 Date Recorded Body height Body mass index (BMI) Body weight Provider Name and Address Organization Details Last Updated DateTime 06/15/2022 177.8 cm 40.2 kg/m2 358699.86 g Janeth [facility] 06/15/2022 08:57:18 Social History Question Answer Notes LastModified by Organizat ion Details LastModified Time Tobacco Smoking Status Former Smoker Orlando Finch [facility] 12/29/2021 15:43:35 What Is Your Level Of Alcohol Consumption? None [email or web address] Information not available 03/23/2022 What Is Your Level Of Caffeine Consumption? Occasional Information not available 12/29/2021 Do You Or Have You Ever Used E-cigarettes Or Vape? 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[employer] Information not available 12/29/2021 [...] or AIDS N High Blood Pressure Y Irregular Heartbeat N MRSA N Any Other Significant Medical Issues N Weight Gain / Loss N Hearing Loss N Angina, Heart Failure or Attack N Night Sweats N Seizures / Epilepsy N Osteoarthritis / Rheumatoid arthritis / Other N Cancer N Stroke N Ulcer / Stomach Bleeding / Indigestion N Visual Loss or Glaucoma N Blood Clots / Phlebitis N Heart Problems N Depression or Anxiety N Emphysema / Chronic Bronchitis N Reaction to General/Local Anesthesia N Hepatitis / Jaundice N Kidney / Bladder Infections N Diabetes Y Bleeding Disorder N Chemical Dependency / Alcoholism N Psoriasis / Skin Rash N Thyroid Disorder N Heart Disease N Asthma / Shortness of Breath / Sleep Elementary Math Tutor ea (please specify) N Pulmonary Embolism N Past Encounters Encounter ID Performer Location Encounter Start Date Encounter Closed Date Diagnosis/Indication Diagnosis SNOMED-CT Code Diagnosis ICD10 Code Diagnosis Note [id number] ALESHA SOTO [address] [address] 12/29/2021 14:24:27 12/29/2021 16:11:43 Strain of rotator cuff of shoulder 047639979 S46.011A [id number] ALESHA SOTO [address] [address] 02/12/2022 08:05:23 02/16/2022 16:48:40 Strain of rotator cuff of shoulder 653172805 S46.011D Impingemen t syndrome of right shoulder region 3178526376 79979 M75.41 Biceps tendinitis 309975 007 M75.21 [id number] ALESHA SOTO [address] [address] 03/23/2022 08:42:20 03/23/2022 09:16:12 Strain of rotator cuff of shoulder 299707261 S46.011D [id number] ALESHA SOTO [address] [address] 05/04/2022 09:04:53 05/04/2022 09:45:28 Strain of rotator cuff of shoulder 845296382 S46.011D S/P Arthroscop ic Rotator Cuff Repair Extremity: {{Left Rig ht*}} Evaluate and Treat:as indicated Exercises: ROM, FUNCTIONAL STRENGTHEN ING Modalities :as needed Frequency: BIW Duration:6 -8 weeks [id number] FRENCH AHUJA MD [facility] Office [address] [place] [address] 06/15/2022 08:22:29 06/15/2022 09:06:21 Biceps tendinitis 833703919 M75.21 Strain of rotator cuff of shoulder 717373326 S46.011D S/P Arthroscop ic Rotator Cuff Repair [...] ID Queen Member ID Guarantor Name 12/29/2021 [facility] Blu Zimmerman 02/12/2022 [facility] [employer] Blu Elsie 05/04/2022 [facility] [employer] Blu Elsie 06/15/2022 [facility] [employer] Blu Elsie Notes Date Note Type Note Provider Name [...] a sling and quite uncomfortable. ALESHA SOTO [address] [place] [address], [phone], [facility] 01/01/2022 09:57:35 02/12/2022 text/html [...] to begin 4 weeks postop. ALESHA SOTO [address] [place] [address], [phone], [facility] 02/17/2022 08:44:56 03/23/2022 text/html J Carlos comes in to [facility] for second postoperative visit. He is status post a right shoulder scopic rotator cuff repair subpectoral biceps tenodesis labral cyst debridement and labral repair. Overall he is doing very well now 7 weeks status post the surgery. 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 He has been doing therapy twice a week and doing therapy on his own daily. He is overall pleased with his progress and he is already more comfortable than he was prior to surgery. ALESHA SOTO [address] [place], [address], [facility] 03/25/2022 09:37:58 05/04/2022 text/html [facility] of his superior border subscapularis with repair. His labral repair cyst decompression and open subpectoral biceps tenodesis February 05, 2022. He actually is regained his motion but he continues to have pain and discomfort and weakness. He is working hard with therapy and he has pain at end ranges of motion. 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 ALESHA SOTO [address] [facility], [place], [address], [facility] 05/14/2022 11:26:53 06/15/2022 text/html This is his 4-mo nt follow-up status post his right shoulder arthroscopic rotator cuff repair labral repair paralabral cyst decompression and open subpectoral biceps tenodesis February 05, 2022. He is doing very well. He has no complaints. 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 FRENCH AHUJA MD [address] [facility], [place], [address], [facility] 06/24/2022 08:12:13
== END 2024-09-06 14:27 | disposition home or self-care (01) ==
PROVIDERS: PCP Nurse Practitioner Family; Visit Provider Nurse Practitioner Family
DX: B34.9 Viral infection, unspecified (principal); E11.9 Type 2 diabetes mellitus without complications

== ENCOUNTER 2024-09-06 13:26 | Outpatient (REF) | payer OTHER, SELFPAY ==
--- OUTSIDE RECORDS SUMMARY | 2024-09-06 16:53 | XMS_ITS | Data Portability ---
Author Organization ALESHA Olivera s, [address] Address [address] [place] [address] Care Team Providers Care Beef Selector Name Role Phone [facility] Primary Care Provider Assessment No assessment recorded. Plan of Treatment Reminders Order Date Submit Date Provider Last Modified By Organization Details Last Modified Time Details Appointments None recorded. Lab rapid SARS CoV 2 Ag, QL IA, respiratory specimen 2021 022 [email or web address] [facility], [address] [place] [address], [phone], 19:05:55 Referral None recorded. Procedures None recorded. Surgeries None recorded. Imaging None recorded. Medication Orders None recorded. Patient TargetsNo targets recorded. Patient Instructions Encounter Date Encounter Id Patient Instructions Last Modified By Organization Details Last Modified Time 06/26/2022 [id number] cough: care instructions [email or web address] Not available 06/26/2022 19:05:55 Reason for Referral None Reported. Results Created Date Observation Date Name Description Value Unit Range Abnormal Flag Note LastModifiedBy Organization Detail LastModifiedTime 06/26/2006/26/2022 rapid SARS CoV 2 Ag, QL IA, respi rator y speci men Unknown Analyte Normal =Negat shonda Not Available [facility] [address] [place] [address], [phone], 06/26/2022 18:23:19 06/26/20 22 06/26/2022 rapid SARS CoV 2 Ag, QL IA, respi rator y speci men Unknown Analyte negati ve Not Available axel agosto [address], [address], 06/26/2022 18:23:19 Result Notes None recorded. Problems Name Problem SNOMED Code Status Onset Date Resolution Date Notes Provider Name and Address Organization Details Recorded Time Hypertensive disorder 62509549 Active 2021 KI schwab, [place] - [facility] 2 18:20:59 Diabetes mellitus 78071025 Active 2021 [facility] [...] Name and Address Organization Details Recorded Time 10551 Product containin g penicilli n (product) medicatio n facial swelling Not available high 06/26/2022 07078 8001 SNOMED KI schwab, [place] - [facility] [...] Address Organization Details Last Updated DateTime 2 813010. 02 g 37.3 kg/m2 177.8 cm 97 [...] SNOMED-CT Code Diagnosis ICD10 Code Diagnosis Note [id number] 21005_[facility] [address] [place] [address] 04/06/2021 14:14:33 04/06/2021 15:37:30 [id number] [facility] [address] [place] [address] 03/11/2021 13:49:40 03/11/2021 16:30:48 [id number] 20995[facility] [address] [place] [phone] 11/10/2020 12:52:23 11/10/2020 14:20:59 [id number] ALESHA IZQUIERDO 2[facility] [address] [place] [phone] 06/26/2022 15:43:00 06/26/2022 19:07:30 COVID-19 040728901 U07.1 Resolving on Paxlovid - Need COVID test for Work Health Concerns Section Related Observation LastModified by Organization Detai ls LastModified Time None Recorded Concern Status LastModified by Organization Details LastModified Time None Recorded Advance Directives Directive None Recorded Payers Encounter Date Sequence Insurance Name Policy Number Policy Queen Covered Member ID Queen Member ID Guarantor Name 11/10/2020 1 [employer] - DIRECT CONNECTORCARE TYPE I (HMO) [id number] Blu D Samek [id number] 02 Blu Samek 03/11/2021 1 [employer] - DIRECT [employer]CARE TYPE I (HMO) [id number] Blu D Samek [id number] Blu Samek 04/06/2021 1 [employer] - DIRECT CONNE[employer]CARE TYPE I (HMO) [id number] Blu D Samek [id number] 02 Blu Samek 06/26/2022 1 [employer] - DIRECT CONNECTORCARE TYPE I (HMO) [id number] Blu D Samek [id number] 02 Blu Samek Notes Date Note Type Note Provider Name and Address Organization Details Recorded Time 2 text/html CoughReported bypatient.source of patient informationInformation obtained from patient; Patient arrived at Urgent Care ambulatory Severity:improving Associated Symptoms:no fever; no chills; no chest pain; no heartburn; no nausea; no vomiting; no edema ALESHA IZQUIERDO [address] [place], [address], [place] - [facility] 06/26/2022 19:09:41
[2024-09-07 10:48] LABS: Adenovirus PCR Not Detected (Not Detect.); Bordetella parapertussis PCR Not Detected (Not Detect.); Bordetella pertussis PCR Not Detected (Not Detect.); Chlamydia pneumoniae PCR Not Detected (Not Detect.); Coronavirus 229E PCR Not Detected (Not Detect.); Coronavirus HKU1 PCR Not Detected (Not Detect.); Coronavirus NL63 PCR Not Detected (Not Detect.); Coronavirus OC43 PCR Not Detected (Not Detect.); Human metapneumovirus PCR Not Detected (Not Detect.); Influenza B PCR Not Detected (Not Detect.); Mycoplasma pneumoniae PCR Not Detected (Not Detect.); Parainfluenza 1 PCR Not Detected (Not Detect.); Parainfluenza 2 PCR Not Detected (Not Detect.); Parainfluenza 3 PCR Not Detected (Not Detect.); Parainfluenza 4 PCR Not Detected (Not Detect.); RSV PCR Not Detected (Not Detect.); Rhino/Enterovirus PCR Not Detected (Not Detect.)
[2024-09-07 12:34] LABS: Influenza A PCR Detected (Not Detect.); SARS-CoV-2 PCR Not Detected (Not Detect.)
== END 2024-09-06 13:27 | disposition home or self-care (01) ==
LOC: HO.LNP 13:26
PROVIDERS: PCP Nurse Practitioner Family; Visit Provider Nurse Practitioner Family
DX: E11.9 Type 2 diabetes mellitus without complications (principal); B34.9 Viral infection, unspecified
CPT/HCPCS: 83036; 87633; 96127

== ENCOUNTER 2024-09-21 13:48 | Outpatient (AMB) | payer OTHER, SELFPAY ==
--- NOTE | 2024-09-21 13:53 | MHC.OFFVIS ---
Vital Signs 09/21/24 13:56 Height 5 ft 10 in Weight 270 lb 8.115 oz BMI 38.8 BP 162/94 H Blood Pressure Location Rt brachial Position Sitting Pulse 96 Pulse Source Pulse Oximeter Pulse Oximetry (%) 96 Oxygen Delivery Method Room Air Intake Visit Reasons: T2DM Intake Note: New patient internally referred by PCP for Diabetes Mellitus Management. Last Diabetic Eye exam: October 2023 Last Podiatry Visit: No longer sees a Residential Nurse Random Glucose: 206 mg/dl HgA1C: 9.0% 09/06/2024 Filler And Trimmer Required: No Accompanied by: Self / Same As Patient Allergies penicillin G Allergy (Unknown, Verified 09/21/24 14:06) swelling penicillin V Allergy (Unknown, Verified 09/21/24 14:06) unknown Penicillins [PCN] Allergy (Unknown, Verified 09/21/24 14:06) UNKNOWN Medication List - Last Reconciled 09/21/24 by Dora Nix PA-C alcohol swabs (Alcohol Prep Pads) 1 pad topical BID 60 days amlodipine 5 mg PO DAILY 90 days blood pressure kit-extra large daily use blood sugar diagnostic (FreeStyle Lite Strips) bid blood-glucose meter (FreeStyle Lite Meter kit) bid Comfort EZ Pen [place] (pen needle, diabetic) daily NS insulin glargine (Lantus Solostar U-100 Insulin) 25 units (0.25 mL) subcut DAILY lancets (FreeStyle Lancets) bid lisinopril 40 mg PO DAILY 90 days HPI HPI T2DM: Details: Patient is a 34-year-old male with a significant past medical history of diabetes, hypertension, hyperlipidemia, obesity, EtOH abuse , obstructive sleep apnea presenting today for consultation regarding diabetes. Endo: Diabetes is diagnosed in 2020. His most recent A1c was 9. He is currently on Trulicity 3 mg weekly and Lantus 25 units daily. -He has tried metformin but states that this caused GI upset. He does not like trulicity CGM: Has a prescription for a [employer] G6. Fam hx of DM CV: Blood pressure today in the office is 164/94. He did not take his meds today. He is currently on lisinopril 40 mg and amlodipine 5 mg daily. Cholesterol has been diet controlled. [facility] Medical History (Updated 09/21/24 @ 14:05 by Dora Nix PA-C) Insulin dependent diabetes mellitus type IA BMI 38.0-38.9,adult Obesity Diabetes Newly diagnosed diabetes COVID Hyponatremia Viral pneumonia HTN (hypertension) Surgical History S/P right rotator cuff repair Family History Mother HTN (hypertension) Diabetes mellitus Arthritis Social History Housing: House Patient Tobacco Use Status: Former Tobacco user Years Smoked: 10 years ago e-Cigarette/Vaping Use: Never Used Second Hand Smoke Exposure: No service: No Current occupational status: employed Current occupation: [employer] Current occupational exposures/hazards: No Cognitive needs: No Hearing needs: No Vision needs: No Physical Exam Const Orientation/consciousness: patient oriented x3 Neck Neck: Yes no lymphadenopathy Thyroid: Thyroid normal Carotids: no bruits Resp Auscultation: clear to auscultation bilaterally Cardio Rate: regular rate Rhythm: regular rhythm Heart sounds: S1 normal heart sound present and S2 normal heart sound present Peripheral pulses: dorsalis pedis present Neuro General: patient oriented x3, gait normal and no focal motor deficits Extrem Other: Monofilament sensation intact bilaterally. Vibratory sensation intact bilaterally. Skin intact. General: Yes normal to inspection Results Reviewed Results Reviewed: Laboratory Tests 05/02/24 09/06/24 08:38 09:18 Sodium 136 Potassium 4.4 Chloride 101 Carbon Dioxide 26 Anion Gap 13 BUN 14 Creatinine 1.03 Estimated GFR > 60 Hgb A1c (Clinic) 9.0 H Assessment & Plan Assessment & Plan (1) Uncontrolled diabetes mellitus with hyperglycemia, with long-term current use of insulin: Code(s): E11.65 - Type 2 diabetes mellitus with hyperglycemia; Z79.4 - long term acute care registered nurse (current) use of insulin Category: Medical Plan: 75 minutes spent today in hutr-eh-fidc time discussing diabetes, the pathophysiology of diabetes, differences between type 1 and type 2 diabetes, complications associated with diabetes including kidney disease, blindness, amputation risks, infections, heart attacks, stroke etc.. He has back up testing supplies [employer] charbel given today in office. Ana downloaded for pt on his phone, showed how to use reader, paired device for pt Start metformin 500 mg twice a day (to see if tolerable) Take lantus 25 units daily start mounjaro 2.5 mg week- discussed risks and benefits and adverse effects like pancreatitis Rule of 15s discussed. Glucose tabs order DM labs ordered, advised to complete this week. In his chart it was listed that he was in insulin-dependent type 1 a. Does not recall a workup for this. I have ordered labs to confirm type 2. 1-2 week follow up advised (2) HTN (hypertension): Code(s): I10 - Essential (primary) hypertension Category: Medical Plan: not compliant with treatment discussed importance of taking medications as prescribed and risks of untreated htn including cardiac disease, kidney damage, stroke etc (3) Dyslipidemia: Code(s): E78.5 - Hyperlipidemia, unspecified Category: Medical Plan: lipids ordered (4) Obesity, Class II, BMI 35-39.9: Code(s): E66.9 - Obesity, unspecified Category: Medical Plan: start mounjaro discussed reducing carb/sugar intake, increase physical activity (5) Severe obstructive sleep apnea: Code(s): G47.33 - Obstructive sleep apnea (adult) (pediatric) Category: Medical Plan: has a hard time tolerating cpap starting mounjaro I encouraged CPAP machine Orders: Orders Comprehensive [place]. Panel Fast Today E11.65 - Type 2 diabetes mellitus with hyperglycemia, Z79.4 - retirement (current) use of insulin TSH reflex Free T4 Today E11.65 - Type 2 diabetes mellitus with hyperglycemia, Z79.4 - long term acute care registered nurse (current) use of insulin Glutamic acid decarboxylase Ab Today E11.65 - Type 2 diabetes mellitus with hyperglycemia, E66.9 - Obesity, unspecified, Z79.4 - long term acute care registered nurse (current) use of insulin B Type Natriuretic Peptide Today E11.65 - Type 2 diabetes mellitus with hyperglycemia, Z79.4 - long term acute care registered nurse (current) use of insulin Lipid Panel Today E11.65 - Type 2 diabetes mellitus with hyperglycemia, Z79.4 - retirement (current) use of insulin Microalbumin, Random (w Creat) Today E11.65 - Type 2 diabetes mellitus with hyperglycemia, Z79.4 - retirement (current) use of insulin C Peptide Today E11.65 - Type 2 diabetes mellitus with hyperglycemia, E66.9 - Obesity, unspecified, Z79.4 - retirement (current) use of insulin Islet Cell Antibody Scrn/Titer Today E11.65 - Type 2 diabetes mellitus with hyperglycemia, E66.9 - Obesity, unspecified, Z79.4 - retirement (current) use of insulin Medications: New tirzepatide (Mounjaro) 2.5 mg (0.5 mL) subcut QWEEK 2 mL 3RF metformin 500 mg PO BID 180 tabs 0RF blood-glucose sensor (FreeStyle Charbel 3 Plus Sensor device) Use daily As directed to monitor glucose 2 ea 5RF E08.29 - Diabetes mellitus due to underlying condition with other diabetic kidney complication, R80.9 - Proteinuria, unspecified, Z79.4 - retirement (current) use of insulin glucose (Dex4 Glucose) until symptoms of low blood sugar are controlled 16 grams (4 x 4 gram) PO Q15M PRN 100 tabs 0RF hypoglycemia Refilled insulin glargine (Lantus Solostar U-100 Insulin) 25 units (0.25 mL) subcut DAILY 15 mL 1RF Discontinued blood-glucose sensor (Dexcom G6 Sensor device) Discontinued Reason: Doctor's Order tid 3 ea 3RF blood-glucose meter,continuous (Dexcom G6 Checkerer Hand) Discontinued Reason: Doctor's Order tid 1 ea 3RF E11.9 - Type 2 diabetes mellitus without complications Coding Level of Care Code New Pt Level 5 (69195) Complex EM visit Add On G2211 Diagnoses Uncontrolled diabetes mellitus with hyperglycemia, with long-term current use of insulin E11.65; Z79.4 HTN (hypertension) I10 Dyslipidemia E78.5 Obesity, Class II, BMI 35-39.9 E66.9 Severe obstructive sleep apnea G47.33
[2024-09-21 13:56] VITALS: BP 162/94; PULSE 96; O2SAT 96; BMI 38.8
[2024-09-21 14:17] LABS: Glucose, Whole Blood 206 mg/dL (60-115)
--- OUTSIDE RECORDS SUMMARY | 2024-09-21 15:27 | XMS_ITS | Data Portability ---
Author Organization [place] - [facility] [place], [facility] Office Address [address] [place] [address] Care Team Providers Care Corporate Financial Analyst Name Role Phone EDIN GRAVES Primary Care Provider JEFFREY MEJIAS Lab Coordinator Unavailable Assessment Encounter Date Assessment Date Assessment [...] 2 weeks. 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 He is capable of doing a [...] recorded. Referral physical therapist [email or web address], [address], [place], [address], 08:02:31 Procedures None recorded. Surgeries None recorded. Imaging None recorded. Medication Orders None recorded. Patient TargetsNo targets recorded. Patient Instructions Encounter Date Encounter Id Patient Instructions Last Modified By Organization Details Last Modified Time 06/15/2022 [id number] biceps tendinitis: exercises [email or web address] Not available 06/18/2022 [...] tionPr ocesso r.aspx ?CMD=O LEATHA DY&ACC ESSION [id number] [email or web address] [facility] [place] [id number], 02/12/2022 08:59:07 Result Notes None recorded. Procedures Surgical History Date Name Laterality Status Provider Name and Address Organization Details Recorded Time 02/06/20 Orthopaedic Surgery completed Jacquelin Mariano [facility] [place] 02/12/2022 08:26:53 Imaging Results Imaging Date Name Status LastModified by Organiz ation Details LastModified Time 12/11/2021 MRI, shoulder, w/o contrast completed Information not available 12/29/2021 14:46:17 02/12/2022 XR, shoulder completed [email or web address] [facility] [address], [address], 02/12/2022 08:59:07 Procedure Notes None recorded. Medical Equipment None Reported. Allergies Allergen ID Allergen Name Allergen Category Reaction Reaction Severity Criticality Documentation Date Start Date Code Code System Note Provider Name and Address Organization Details Recorded Time 286221 Product containin g penicilli n (product) medicatio n Not available Not available Not available 12/29/2021 96657 8001 SNOMED Orlando Dorsyed [facility] [place] [facility] [place] 2 15:43:28 Medications Name Sig Start Date [...] Address Organization Details Last Updated DateTime 12/29/2021 715234.86 g 40.2 kg/m2 177.8 cm Orlando Finch [facility] [place] 12/29/2021 15:43:25 Date Recorded Body height Body mass index (BMI) Body weight Provider Name and Address Organization Details Last Updated DateTime 02/12/2022 177.8 cm 40.2 kg/m2 752639.86 g Jacquelinzhanna Mistryann [facility] [place] 02/12/2022 08:26:02 Date Recorded Body height Body mass index (BMI) Body weight Provider Name and Address Organization Details Last Updated DateTime 03/23/2022 177.8 cm 40.2 kg/m2 563501.86 g Janeth [facility] [place] 03/23/2022 08:54:05 Date Recorded Body height Body mass index (BMI) Body weight Provider Name and Address Organization Details Last Updated DateTime 05/04/2022 177.8 cm 40.2 kg/m2 477205.86 g French Dunlap [facility] [place] 05/04/2022 09:25:02 Date Recorded Body height Body mass index (BMI) Body weight Provider Name and Address Organization Details Last Updated DateTime 06/15/2022 177.8 cm 40.2 kg/m2 268550.86 g [facility] [place] 06/15/2022 08:57:18 Social History Question Answer Notes LastModified by Organizat ion Details LastModified Time Tobacco Smoking Status Former Smoker Orlando Finch [facility] [place] 12/29/2021 15:43:35 What Is Your Level Of Alcohol Consumption? None [email or web address] Information not available 03/23/2022 What Is Your Level Of Caffeine Consumption? Occasional Information not available 12/29/2021 Do You Or Have You Ever Used E-cigarettes Or Vape? 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[employer] Information not available 12/29/2021 Have You [...] Issues N Reaction to General/Local Anesthesia N Weight Gain / Loss N Hepatitis / Jaundice N Kidney / Bladder Infections N Diabetes Y Bleeding Disorder N Hearing Loss N Angina, Heart Failure or Attack N Night Sweats N Seizures / Epilepsy N Osteoarthritis / Rheumatoid arthritis / Other N Cancer N Stroke N Chemical Dependency / Alcoholism N Ulcer / Stomach Bleeding / Indigestion N Visual Loss or Glaucoma N Psoriasis / Skin Rash N Thyroid Disorder N Heart Disease N Asthma / Shortness of Breath / Sleep Operations Dispatcher ea (please specify) N Pulmonary Embolism N Past Encounters Encounter ID Performer Location Encounter Start Date Encounter Closed Date Diagnosis/Indication Diagnosis SNOMED-CT Code Diagnosis ICD10 Code Diagnosis Note [id number] ALESHA SOTO [facility] Office [address] [place] [id number] 12/29/2021 14:24:27 12/29/2021 16:11:43 Strain of rotator cuff of shoulder 701104544 S46.011A [id number] ALESHA SOTO [facility] Office [address] [place] [id number] 02/12/2022 08:05:23 02/16/2022 16:48:40 Strain of rotator cuff of shoulder 248121715 S46.011D Impingemen t syndrome of right shoulder region 8773609117 85122 M75.41 Biceps tendinitis 916814 007 M75.21 [id number] ALESHA SOTO [facility] Office [address] [place] [address] 1 03/23/2022 08:42:20 03/23/2022 09:16:12 Strain of rotator cuff of shoulder 747765351 S46.011D [id number] ALESHA SOTO [address] [address] 05/04/2022 09:04:53 05/04/2022 09:45:28 Strain of rotator cuff of shoulder 037054624 S46.011D S/P Arthroscop ic Rotator Cuff Repair Extremity: {{Left Rig ht*}} Evaluate and Treat:as indicated Exercises: ROM, FUNCTIONAL STRENGTHEN ING Modalities :as needed Frequency: BIW Duration:6 -8 weeks [id number] FRENCH AHUJA MD [address] [address] 06/15/2022 08:22:29 06/15/2022 09:06:21 Biceps tendinitis 062521318 M75.21 Strain of rotator cuff of shoulder 037862712 S46.011D S/P Arthroscop ic Rotator Cuff Repair [...] ID Queen Member ID Guarantor Name 12/29/2021 [facility] Blu Zimmerman 02/12/2022 [facility] [employer] Blu Zimmerman 05/04/2022 [facility] [employer] Blu Zimmerman 06/15/2022 [facility] [employer] Blu Zimmerman Notes [...] sling and quite uncomfortable. ALESHA SOTO [address] [place], [address], [facility] [place] 01/01/2022 09:57:35 02/12/2022 text/html 31-year-old male who [...] to begin 4 weeks postop. ALESHA SOTO [address] [place], [address], [facility] [place] 02/17/2022 08:44:56 03/23/2022 text/html J Carlos comes in to [facility] for second postoperative visit. He is status post a right shoulder scopic rotator cuff repair subpectoral biceps tenodesis labral cyst debridement and labral repair. Overall he is doing very well now 7 weeks status post the surgery. 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 He has been doing therapy twice a week and doing therapy on his own daily. He is overall pleased with his progress and he is already more comfortable than he was prior to surgery. ALESHA SOTO [address] [place], [address], [facility] [place] 03/25/2022 09:37:58 05/04/2022 text/html He comes in to y for his 3-month postop of his superior border subscapularis with repair. His labral repair cyst decompression and open subpectoral biceps tenodesis February 05, 2022. He actually is regained his motion but he continues to have pain and discomfort and weakness. He is working hard with therapy and he has pain at end ranges of motion. 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 ALESHA SOTO [address] [place] [address], [phone], [facility] [place] 05/14/2022 11:26:53 06/15/2022 text/html This is his 4-mo [facility] follow-up status post his right shoulder arthroscopic rotator cuff repair labral repair paralabral cyst decompression and open subpectoral biceps tenodesis February 05, 2022. He is doing very well. He has no complaints. 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 FRENCH AHUJA MD [address] [place] [address], [phone], [facility] [place] 06/24/2022 08:12:13
--- OUTSIDE RECORDS SUMMARY | 2024-09-21 15:27 | XMS_ITS | Data Portability ---
Author Organization ALESHA Olivera s, [address] Address [address] [place] [address] Care Team Providers Care Batch Records Clerk Name Role Phone [facility] Primary Care Provider Assessment No assessment recorded. Plan of Treatment Reminders Order Date Submit Date Provider Last Modified By Organization Details Last Modified Time Details Appointments None recorded. Lab rapid SARS CoV 2 Ag, QL IA, respiratory specimen 2021 022 [email or web address] [facility], [address] [place] [address], [phone], 19:05:55 Referral None recorded. Procedures None recorded. Surgeries None recorded. Imaging None recorded. Medication Orders None recorded. Patient TargetsNo targets recorded. Patient Instructions Encounter Date Encounter Id Patient Instructions Last Modified By Organization Details Last Modified Time 06/26/2022 [id number] cough: care instructions [email or web address] Not available 06/26/2022 19:05:55 Reason for Referral None Reported. Results Created Date Observation Date Name Description Value Unit Range Abnormal Flag Note LastModifiedBy Organization Detail LastModifiedTime 06/26/2006/26/2022 rapid SARS CoV 2 Ag, QL IA, respi rator y speci men Unknown Analyte Normal =Negat shonda Not Available [facility]el [facility] [address] [place] [address], [phone], 06/26/2022 18:23:19 06/26/20 22 06/26/2022 rapid SARS CoV 2 Ag, QL IA, respi rator y speci men Unknown Analyte negati ve Not Available axel agosto [address], [phone], 06/26/2022 18:23:19 Result Notes None recorded. Problems Name Problem SNOMED Code Status Onset Date Resolution Date Notes Provider Name and Address Organization Details Recorded Time Hypertensive disorder 45036746 Active 2021 KI schwab[place] - [facility] 2 18:20:59 Diabetes mellitus 44093451 Active 2021 [facility] [...] Name and Address Organization Details Recorded Time 71501 Product containin g penicilli n (product) medicatio n facial swelling Not available high 06/26/2022 27605 8001 SNOMED [facility], [facility] [...] Address Organization Details Last Updated DateTime 2 339609. 02 g 37.3 kg/m2 177.8 cm 97 [...] SNOMED-CT Code Diagnosis ICD10 Code Diagnosis Note [id number] 21005_Omar Y[address]fmo [facility] [address] [place] [phone] 04/06/2021 14:14:33 04/06/2021 15:37:30 [id number] [facility] [address] [place] [address] 03/11/2021 13:49:40 03/11/2021 16:30:48 [id number] 20995[facility] [address] [place] [phone] 11/10/2020 12:52:23 11/10/2020 14:20:59 [id number] ALESHA IZQUIERDO 21005_[facility] [address] [place] [phone] 06/26/2022 15:43:00 06/26/2022 19:07:30 COVID-19 604843879 U07.1 Resolving on Paxlovid - Need COVID test for Work Health Concerns Section Related Observation LastModified by Organization Detai ls LastModified Time None Recorded Concern Status LastModified by Organization Details LastModified Time None Recorded Advance Directives Directive None Recorded Payers Encounter Date Sequence Insurance Name Policy Number Policy Queen Covered Member ID Queen Member ID Guarantor Name 11/10/2020 1 COUNT INCLUDES THE [facility] - DIRECT CONNECTORCARE TYPE I (HMO) [id number] Blu D Samek [id number] Blu Samek 03/11/2021 1 COUNT INCLUDES THE [facility] - DIRECT CONNECTORCARE TYPE I (HMO) [id number] Blu D Samek [id number] Blu Samek 04/06/2021 1 COUNT INCLUDES THE [facility] - DIRECT CONNECTORCARE TYPE I (HMO) [id number] Blu D Samek [id number] Blu Samek 06/26/2022 1 COUNT INCLUDES THE [facility] - DIRECT CONNECTORCARE TYPE I (HMO) [id number] Blu D Samek [id number] Blu Samek Notes Date Note Type Note Provider Name and Address Organization Details Recorded Time 2 text/html CoughReported bypatient.source of patient informationInformation obtained from patient; Patient arrived at Urgent Care ambulatory Severity:improving Associated Symptoms:no fever; no chills; no chest pain; no heartburn; no nausea; no vomiting; no edema ALESHA IZQUIERDO [address] [place], [address], [place] - [facility] 06/26/2022 19:09:41
== END 2024-09-21 14:49 | disposition home or self-care (01) ==
PROVIDERS: PCP Nurse Practitioner Family; Visit Provider Physician Assistant
DX: E11.65 Type 2 diabetes mellitus with hyperglycemia (principal); Z79.4 Long term (current) use of insulin; I10 Essential (primary) hypertension; E78.5 Hyperlipidemia, unspecified; E66.9 Obesity, unspecified; G47.33 Obstructive sleep apnea (adult) (pediatric)

== ENCOUNTER → 2024-09-21 13:48 | Outpatient (BNVA) | payer OTHER, SELFPAY | PROVIDERS: PCP Nurse Practitioner Family; Visit Provider Physician Assistant | DX: E11.65 Type 2 diabetes mellitus with hyperglycemia (principal); I10 Essential (primary) hypertension; E78.5 Hyperlipidemia, unspecified; E66.9 Obesity, unspecified; Z68.38 Body mass index [BMI] 38.0-38.9, adult; G47.33 Obstructive sleep apnea (adult) (pediatric); Z79.4 Long term (current) use of insulin | CPT/HCPCS: 82947 ==

== ENCOUNTER 2024-10-05 15:49 | Outpatient (AMB) | payer OTHER, SELFPAY ==
[2024-10-05 15:54] VITALS: BP 126/90; PULSE 103; O2SAT 98; BMI 38.6
--- NOTE | 2024-10-05 15:54 | A.OFFVIS_ITS ---
Vital Signs 10/05/24 15:54 Height 5 ft 10 in Weight 268 lb 15.423 oz BMI 38.6 BP 126/90 H Blood Pressure Location Rt brachial Position Sitting Pulse 103 H Pulse Source Pulse Oximeter Pulse Oximetry (%) 98 Oxygen Delivery Method Room Air Intake Visit Reasons: dm Intake Note: Patient presents today for a follow-up on Type 2 Diabetes Mellitus: Last Diabetic eye exam was on: 10/2023 Last Podiatry exam was on: Patient does not see a Ceramic Mold Designer Most recent HbA1c: 9.0% 09/06/2024 Random Glucose- 121 mg/dL, Today Sap Plant Maintenance Consultant Required: No Accompanied by: Self / Same As Patient Allergies penicillin G Allergy (Unknown, Verified 10/05/24 15:56) swelling penicillin V Allergy (Unknown, Verified 10/05/24 15:56) unknown Penicillins [PCN] Allergy (Unknown, Verified 10/05/24 15:56) UNKNOWN HPI HPI dm: Details: Patient is a 34-year-old male with a significant past medical history of diabetes, hypertension, hyperlipidemia, obesity, EtOH abuse , obstructive sleep apnea presenting today for consultation regarding diabetes. -forgot to get labs prior to appointment Endo: Diabetes is diagnosed in 2020. His most recent A1c was 9. Lantus 25 units daily, metformin 500 mg bid, Mounjaro 2.5 mg -He has tried metformin but states that this caused GI upset. He does not like [employer] CGM: GMI is 7.9%, hyperglycemia 13%, 32%, in range 55% Fam hx of DM CV: Blood pressure today in the office is 126/90. He did not take his meds today. He is currently on lisinopril 40 mg and amlodipine 5 mg daily. Cholesterol has been diet controlled. [facility] Medical History (Updated 09/21/24 @ 14:05 by Dora Nix PA-C) Insulin dependent diabetes mellitus type IA BMI 38.0-38.9,adult Obesity Diabetes Newly diagnosed diabetes COVID Hyponatremia Viral pneumonia HTN (hypertension) Surgical History S/P right rotator cuff repair Family History Mother HTN (hypertension) Diabetes mellitus Arthritis Social History Housing: House Patient Tobacco Use Status: Former Tobacco user Years Smoked: 10 years ago e-Cigarette/Vaping Use: Never Used Second Hand Smoke Exposure: No service: No Current occupational status: employed Current occupation: [employer] Current occupational exposures/hazards: No Cognitive needs: No Hearing needs: No Vision needs: No Physical Exam Vital Signs: Last Vital Signs Pulse 103 H 10/05/24 15:54 BP 126/90 H 10/05/24 15:54 Pulse Ox 98 10/05/24 15:54 Oxygen Delivery Method Room Air 10/05/24 15:54 BMI result Body Mass Index 38.6 Const Orientation/consciousness: patient oriented x3 HEENT Ears: hearing grossly normal bilaterally Neck Thyroid: Thyroid normal Lymphatic: no lymphadenopathy noted Resp Auscultation: clear to auscultation bilaterally Cardio Rate: regular rate Rhythm: regular rhythm Heart sounds: S1 normal heart sound present and S2 normal heart sound present Skin General skin exam: no rashes or lesions noted Neuro General: patient oriented x3, gait normal and no focal motor deficits Assessment & Plan Assessment & Plan (1) Uncontrolled diabetes mellitus with hyperglycemia, with long-term current use of insulin: Code(s): E11.65 - Type 2 diabetes mellitus with hyperglycemia; Z79.4 - manager long term care (current) use of insulin Category: Medical Plan: continue lantus 25 units daily increase mounjaro to 5 mg weekly increase meformin to 1000 mg twice a day do labs return in 2 months for follow up (2) Obesity, Class II, BMI 35-39.9: Code(s): E66.9 - Obesity, unspecified Category: Medical Plan: discussed diet reducing carbs and sugar advised increase walking congratulated on gym membership increased mounjaro (3) HTN (hypertension): Code(s): I10 - Essential (primary) hypertension Category: Medical Plan: continue current plan (4) Dyslipidemia: Code(s): E78.5 - Hyperlipidemia, unspecified Category: Medical Plan: lipids ordered Medications: New tirzepatide (Mounjaro) 5 mg (0.5 mL) subcut QWEEK 2 mL 3RF metformin 1,000 mg PO BID 180 tabs 2RF Discontinued tirzepatide (Mounjaro) Discontinued Reason: Doctor's Order 2.5 mg (0.5 mL) subcut QWEEK 2 mL 3RF metformin Discontinued Reason: Doctor's Order 500 mg PO BID 180 tabs 0RF Coding Level of Care Code Est Pt Level 4 (48398) Complex EM visit Add On G2211 Diagnoses Uncontrolled diabetes mellitus with hyperglycemia, with long-term current use of insulin E11.65; Z79.4 Obesity, Class II, BMI 35-39.9 E66.9 HTN (hypertension) I10 Dyslipidemia E78.5
[2024-10-05 16:04] LABS: Glucose, Whole Blood 121 mg/dL (60-115)
--- OUTSIDE RECORDS SUMMARY | 2024-10-05 17:28 | XMS_ITS | Data Portability ---
Author Organization [place] - [facility], FOR[facility]LY [facility] - INPATIENT Address [address] [place] [address] Care Team Providers Care Software Asset Manager Name Role Phone EDIN GRAVES Primary Care Provider JEFFREY MEJIAS Sports Announcer Unavailable Assessment Encounter Date Assessment Date Assessment [...] 2 weeks. 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 He is capable of doing a [...] recorded. Referral physical therapist [facility], [address] [facility], [place], [address], 08:02:31 Procedures None recorded. Surgeries None recorded. Imaging None recorded. Medication Orders None recorded. Patient TargetsNo targets recorded. Patient Instructions Encounter Date Encounter Id Patient Instructions Last Modified By Organization Details Last Modified Time 06/15/2022 [id number] biceps tendinitis: exercises [email or web address] Not available 06/18/2022 [...] tionPr ocesso r.aspx ?CMD=O LEATHA DY&ACC ESSION [id number] [email or web address] [facility] [place] [id number], 02/12/2022 08:59:07 Result Notes None recorded. Procedures Surgical History Date Name Laterality Status Provider Name and Address Organization Details Recorded Time 02/06/20 Orthopaedic Surgery completed Jacquelin Mariano [facility] 02/12/2022 08:26:53 Imaging Results Imaging Date Name Status LastModified by Organiz ation Details LastModified Time 12/11/2021 MRI, shoulder, w/o contrast completed Information not available 12/29/2021 14:46:17 02/12/2022 XR, shoulder completed [email or web address] [facility] [address], [address], 02/12/2022 08:59:07 Procedure Notes None recorded. Medical Equipment None Reported. Allergies Allergen ID Allergen Name Allergen Category Reaction Reaction Severity Criticality Documentation Date Start Date Code Code System Note Provider Name and Address Organization Details Recorded Time 344999 Product containin g penicilli n (product) medicatio n Not available Not available Not available 12/29/2021 69600 8001 SNOMED Orlando Dorrian null [place] - [facility] 2 15:43:28 Medications Name Sig Start Date [...] Address Organization Details Last Updated DateTime 12/29/2021 867819.86 g 40.2 kg/m2 177.8 cm Orlando Florenciosyed [facility] 12/29/2021 15:43:25 Date Recorded Body height Body mass index (BMI) Body weight Provider Name and Address Organization Details Last Updated DateTime 02/12/2022 177.8 cm 40.2 kg/m2 661235.86 g Jacquelinzhanna Mistryann [facility] 02/12/2022 08:26:02 Date Recorded Body height Body mass index (BMI) Body weight Provider Name and Address Organization Details Last Updated DateTime 03/23/2022 177.8 cm 40.2 kg/m2 463403.86 g Janeth Ai [facility] 03/23/2022 08:54:05 Date Recorded Body height Body mass index (BMI) Body weight Provider Name and Address Organization Details Last Updated DateTime 05/04/2022 177.8 cm 40.2 kg/m2 589289.86 g French Dunlap [facility] 05/04/2022 09:25:02 Date Recorded Body height Body mass index (BMI) Body weight Provider Name and Address Organization Details Last Updated DateTime 06/15/2022 177.8 cm 40.2 kg/m2 202099.86 g Janeth [facility] 06/15/2022 08:57:18 Social History Question Answer Notes LastModified by Organizat ion Details LastModified Time Tobacco Smoking Status Former Smoker Orlando Finch [facility] 12/29/2021 15:43:35 What Is Your Level Of Alcohol Consumption? None [email or web address] Information not available 03/23/2022 What Is Your Level Of Caffeine Consumption? Occasional Information not available 12/29/2021 Do You Or Have You Ever Used E-cigarettes Or Vape? 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 [employer] Information not available 12/29/2021 [...] Asthma / Shortness of Breath / Sleep Strip Polisher ea (please specify) N Past Encounters Encounter ID Performer Location Encounter Start Date Encounter Closed Date Diagnosis/Indication Diagnosis SNOMED-CT Code Diagnosis ICD10 Code Diagnosis Note [id number] ALESHA SOTO [facility] [address] [place] [phone] 1 12/29/2021 14:24:27 12/29/2021 16:11:43 Strain of rotator cuff of shoulder 185879770 S46.011A [id number] ALESHA SOTO [facility] [address] [place] [address]-964 1 02/12/2022 08:05:23 02/16/2022 16:48:40 Strain of rotator cuff of shoulder 839163323 S46.011D Impingemen t syndrome of right shoulder region 9197676366 84520 M75.41 Biceps tendinitis 405463 007 M75.21 [id number] ALESHA SOTO [facility] [address] [place] [address] 1 03/23/2022 08:42:20 03/23/2022 09:16:12 Strain of rotator cuff of shoulder 802998891 S46.011D [id number] ALESHA SOTO [facility] [address] [place] [phone] 1 05/04/2022 09:04:53 05/04/2022 09:45:28 Strain of rotator cuff of shoulder 057578817 S46.011D S/P Arthroscop ic Rotator Cuff Repair Extremity: {{Left Rig ht*}} Evaluate and Treat:as indicated Exercises: ROM, FUNCTIONAL STRENGTHEN ING Modalities :as needed Frequency: BIW Duration:6 -8 weeks [id number] FRENCH AHUJA MD [address] [address] 06/15/2022 08:22:29 06/15/2022 09:06:21 Biceps tendinitis 512121226 M75.21 Strain of rotator cuff of shoulder 699672200 S46.011D S/P Arthroscop ic Rotator Cuff Repair [...] 12/29/2021 [facility] [employer] Blu Zimmerman 02/12/2022 [facility] [employer] Blu Elsie 05/04/2022 [facility] [employer] Blu Zimmerman 06/15/2022 [facility] [employer] Blu Zimmerman Notes [...] sling and quite uncomfortable. ALESHA SOTO [address] [place], [address], [facility] 01/01/2022 09:57:35 02/12/2022 text/html 31-year-old male who [...] begin 4 weeks postop. ALESHA SOTO [address] [place], [phone], [facility] 02/17/2022 08:44:56 03/23/2022 text/html J Carlos comes in to [facility] for second postoperative visit. He is status post a right shoulder scopic rotator cuff repair subpectoral biceps tenodesis labral cyst debridement and labral repair. Overall he is doing very well now 7 weeks status post the surgery. 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 He has been doing therapy twice a week and doing therapy on his own daily. He is overall pleased with his progress and he is already more comfortable than he was prior to surgery. ALESHA SOTO [address] [place], [address], [facility] 03/25/2022 09:37:58 05/04/2022 text/html He comes in [...] ranges of motion. 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 ALESHA SOTO [address] [place] [address], [phone], [facility] 05/14/2022 11:26:53 06/15/2022 text/html This is his 4-mo nt follow-up status post his right shoulder arthroscopic rotator cuff repair labral repair paralabral cyst decompression and open subpectoral biceps tenodesis February 05, 2022. He is doing very well. He has no complaints. 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 FRENCH AHUJA MD [address] [place] [address], [phone], [facility] 06/24/2022 08:12:13
--- OUTSIDE RECORDS SUMMARY | 2024-10-05 17:28 | XMS_ITS ---
Author Name CRISP Organization Unknown Care Team Organization Name Specialty Phone Email Start Date End [facility]
--- OUTSIDE RECORDS SUMMARY | 2024-10-05 17:28 | XMS_ITS | Data Portability ---
Author Organization ALESHA Olivera s, [address] Address [address] [place] [address] Care Team Providers Care Elementary Ell Teacher Name Role Phone [facility] Primary Care Provider Assessment No assessment recorded. Plan of Treatment Reminders Order Date Submit Date Provider Last Modified By Organization Details Last Modified Time Details Appointments None recorded. Lab rapid SARS CoV 2 Ag, QL IA, respiratory specimen 2021 022 [email or web address] janice aspirus [facility], [address] [place] [address], [phone], 19:05:55 Referral None recorded. Procedures None recorded. Surgeries None recorded. Imaging None recorded. Medication Orders None recorded. Patient TargetsNo targets recorded. Patient Instructions Encounter Date Encounter Id Patient Instructions Last Modified By Organization Details Last Modified Time 06/26/2022 [id number] cough: care instructions [email or web address] Not available 06/26/2022 19:05:55 Reason for Referral None Reported. Results Created Date Observation Date Name Description Value Unit Range Abnormal Flag Note LastModifiedBy Organization Detail LastModifiedTime 06/26/2006/26/2022 rapid SARS CoV 2 Ag, QL IA, respi rator y speci men Unknown Analyte Normal =Negat shonda Not Available [facility] [address] [place] [address], [phone], 06/26/2022 18:23:19 06/26/20 22 06/26/2022 rapid SARS CoV 2 Ag, QL IA, respi rator y speci men Unknown Analyte negati ve Not Available axel agosto [address], [phone], 06/26/2022 18:23:19 Result Notes None recorded. Problems Name Problem SNOMED Code Status Onset Date Resolution Date Notes Provider Name and Address Organization Details Recorded Time Hypertensive disorder 55351390 Active 2021 KI schwab, [place] - [facility] 2 18:20:59 Diabetes mellitus 41312134 Active 2021 [facility] [...] Name and Address Organization Details Recorded Time 12425 Product containin g penicilli n (product) medicatio n facial swelling Not available high 06/26/2022 00441 8001 SNOMED [facility], [facility] [...] Address Organization Details Last Updated DateTime 2 845207. 02 g 37.3 kg/m2 177.8 cm 97 [...] SNOMED-CT Code Diagnosis ICD10 Code Diagnosis Note [id number] 21005_Omar Youssefmo [facility] [address] [place] [phone] 04/06/2021 14:14:33 04/06/2021 15:37:30 [id number] 20995[facility] [address] [place] [phone] 03/11/2021 13:49:40 03/11/2021 16:30:48 [id number] 20[facility] [address] [place] [phone] 11/10/2020 12:52:23 11/10/2020 14:20:59 [id number] ALESHA IZQUIERDO 21005_[facility] [address] [place] [phone] 06/26/2022 15:43:00 06/26/2022 19:07:30 COVID-19 915404189 U07.1 Resolving on Paxlovid - Need COVID test for Work Health Concerns Section Related Observation LastModified by Organization Detai ls LastModified Time None Recorded Concern Status LastModified by Organization Details LastModified Time None Recorded Advance Directives Directive None Recorded Payers Encounter Date Sequence Insurance Name Policy Number Policy Queen Covered Member ID Queen Member ID Guarantor Name 11/10/2020 1 [employer]ARE TYPE I (HMO) [id number] Blu D Samek [id number] Blu Samek 03/11/2021 1 [employer] TYPE I (HMO) [id number] Blu D Samek [id number] Blu Samek 04/06/2021 1 [employer] - [employer] TYPE I (HMO) [id number] Blu D Samek [id number] 02 Blu Samek 06/26/2022 1 [employer] - [employer] CONNE[employer]CARE TYPE I (HMO) [id number] Blu D Samek [id number] Blu Samek Notes Date Note Type Note Provider Name and Address Organization Details Recorded Time 2 text/html CoughReported bypatient.source of patient informationInformation obtained from patient; Patient arrived at Urgent Care ambulatory Severity:improving Associated Symptoms:no fever; no chills; no chest pain; no heartburn; no nausea; no vomiting; no edema ALESHA IZQUIERDO [address] [place], [address], [place] - [facility] 06/26/2022 19:09:41
== END 2024-10-05 16:20 | disposition home or self-care (01) ==
LOC: HO.ENCR 15:49
PROVIDERS: PCP Nurse Practitioner Family; Visit Provider Physician Assistant
DX: E11.65 Type 2 diabetes mellitus with hyperglycemia (principal); Z79.4 Long term (current) use of insulin; E66.9 Obesity, unspecified; I10 Essential (primary) hypertension; E78.5 Hyperlipidemia, unspecified

== ENCOUNTER → 2024-10-05 15:49 | Outpatient (BNVA) | payer OTHER, SELFPAY | PROVIDERS: PCP Nurse Practitioner Family; Visit Provider Physician Assistant | DX: E11.65 Type 2 diabetes mellitus with hyperglycemia (principal); E66.9 Obesity, unspecified; I10 Essential (primary) hypertension; E78.5 Hyperlipidemia, unspecified; Z79.4 Long term (current) use of insulin; Z79.84 Long term (current) use of oral hypoglycemic drugs; Z79.899 Other long term (current) drug therapy | CPT/HCPCS: 82947 ==

== ENCOUNTER 2024-11-26 15:43 | Outpatient (AMB) | payer OTHER, SELFPAY ==
[2024-11-26 15:44] VITALS: BP 138/92; PULSE 103; O2SAT 97; BMI 37.9
--- NOTE | 2024-11-26 15:44 | A.OFFVIS_ITS ---
Vital Signs 11/26/24 15:44 Height 5 ft 10 in Weight 264 lb 5.348 oz BMI 37.9 BP 138/92 H Blood Pressure Location Rt brachial Position Sitting Pulse 103 H Pulse Source Pulse Oximeter Pulse Oximetry (%) 97 Oxygen Delivery Method Room Air Intake Visit Reasons: DM Intake Note: Patient present today for Type 2 Diabetes Mellitus Last Diabetic eye exam: 09/2023 Last Podiatry Visit: Doesn't have one Random Glucose: 137 mg/dl HgA1C: 9.0% 09/06/24 Nursing Information Systems Coordinator Required: No Accompanied by: Self / Same As Patient Allergies penicillin G Allergy (Unknown, Verified 11/26/24 15:49) swelling penicillin V Allergy (Unknown, Verified 11/26/24 15:49) unknown Penicillins [PCN] Allergy (Unknown, Verified 11/26/24 15:49) UNKNOWN Medication List - Last Reconciled 11/26/24 by Dora Nix PA-C alcohol swabs (Alcohol Prep Pads) 1 pad topical BID 60 days amlodipine 5 mg PO DAILY 90 days blood pressure kit-extra large daily use blood sugar diagnostic (FreeStyle Lite Strips) bid blood-glucose meter (FreeStyle Lite Meter kit) bid blood-glucose sensor (FreeStyle Jared 3 Plus Sensor device) Use daily As direct ed to monitor glucose Comfort EZ Pen [place] (pen needle, diabetic) daily NS glucose (Dex4 Glucose) 16 grams (4 x 4 gram) PO Q15M PRN insulin glargine (Lantus Solostar U-100 Insulin) 10 units subcut DAILY lancets (FreeStyle Lancets) bid lisinopril 40 mg PO DAILY 90 days metformin 1,000 mg PO BID HPI HPI DM: Details: Patient is a 34-year-old male with a significant past medical history of diabetes, hypertension, hyperlipidemia, obesity, EtOH abuse , obstructive sleep apnea presenting today for consultation regarding diabetes. - has not yet gotten drawn as previously visits. Endo: Diabetes is diagnosed in 2020. His most recent A1c was 9. Lantus 25 units daily, metformin 500 mg bid, Mounjaro 5 mg -He has tried metformin but states that this caused GI upset. He does not like trulicity CGM: GMI is 7.9%, hyperglycemia 6%, 94% in range, 0% hypoglycemia Fam hx of DM CV: Blood pressure today in the office is 126/90. He did not take his meds today. He is currently on lisinopril 40 mg and amlodipine 5 mg daily. Cholesterol is elevated not yet returned to get this rechecked. [facility] Medical History (Updated 09/21/24 @ 14:05 by Dora Nix PA-C) Insulin dependent diabetes mellitus type IA BMI 38.0-38.9,adult Obesity Diabetes Newly diagnosed diabetes COVID Hyponatremia Viral pneumonia HTN (hypertension) Surgical History S/P right rotator cuff repair Family History Mother HTN (hypertension) Diabetes mellitus Arthritis Social History Housing: House Patient Tobacco Use Status: Former Tobacco user Years Smoked: 10 years ago e-Cigarette/Vaping Use: Never Used Second Hand Smoke Exposure: No service: No Current occupational status: employed Current occupation: [employer] Current occupational exposures/hazards: No Cognitive needs: No Hearing needs: No Vision needs: No Physical Exam Const Orientation/consciousness: patient oriented x3 HEENT Ears: hearing grossly normal bilaterally Neck Neck: Yes no lymphadenopathy Thyroid: Thyroid normal Carotids: no bruits Lymphatic: no lymphadenopathy noted Resp Auscultation: clear to auscultation bilaterally Cardio Rate: regular rate Rhythm: regular rhythm Heart sounds: S1 normal heart sound present and S2 normal heart sound present Peripheral pulses: dorsalis pedis present Skin General skin exam: no rashes or lesions noted Neuro General: patient oriented x3, gait normal and no focal motor deficits Extrem Other: Monofilament sensation intact bilaterally. Vibratory sensation intact bilaterally. Skin intact. 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 Reminded patient to complete these labs. Medications: New amlodipine 10 mg PO DAILY 90 tabs 1RF tirzepatide (Mounjaro) 7.5 mg (0.5 mL) subcut QWEEK 2 mL 5RF Changed From insulin glargine (Lantus Solostar U-100 Insulin) 25 units (0.25 mL) subcut DAILY 15 mL 1RF To insulin glargine (Lantus Solostar U-100 Insulin) 10 units subcut DAILY Discontinued amlodipine Discontinued Reason: Doctor's Order 5 mg PO DAILY 90 days 90 tabs 1RF Coding Level of Care Code Est Pt Level 4 (13687) Complex EM visit Add On G2211 Diagnoses Uncontrolled diabetes mellitus with hyperglycemia, with long-term current use of insulin E11.65; Z79.4 HTN (hypertension) I10 Dyslipidemia E78.5
--- OUTSIDE RECORDS SUMMARY | 2024-11-26 15:45 | XMS_ITS | Data Portability ---
Author Organization [place] - [facility] [place], [place] LICENSE OF [facility] Address [address] [place] [address] Care Team Providers Care 5Th Grade Teacher Name Role Phone EDIN GRAVES Primary Care Provider JEFFREY MEJIAS Exchange Administrator Unavailable Assessment Encounter Date Assessment Date Assessment [...] 2 weeks. 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 He is capable of doing a [...] referral [facility], [address] [facility], [place], [address], 08:02:31 Procedures None recorded. Surgeries None recorded. Imaging None recorded. Medication Orders None recorded. Patient TargetsNo targets recorded. Patient Instructions Encounter Date Encounter Id Patient Instructions Last Modified By Organization Details Last Modified Time 06/15/2022 [id number] biceps tendinitis: exercises [email or web address] Not available 06/18/2022 [...] tionPr ocesso r.aspx ?CMD=O LEATHA DY&ACC ESSION [id number] [email or web address] [facility] [place] [id number], 02/12/2022 08:59:07 Result Notes None recorded. Procedures Surgical History Date Name Laterality Status Provider Name and Address Organization Details Recorded Time 02/06/20 Orthopaedic Surgery completed Jacquelin Mariano [facility] [place] 02/12/2022 08:26:53 Imaging Results Imaging Date Name Status LastModified by Organiz ation Details LastModified Time 12/11/2021 MRI, shoulder, w/o contrast completed Information not available 12/29/2021 14:46:17 02/12/2022 XR, shoulder completed [email or web address] [facility] [address], [address], 02/12/2022 08:59:07 Procedure Notes None recorded. Medical Equipment None Reported. Allergies Allergen ID Allergen Name Allergen Category Reaction Reaction Severity Criticality Documentation Date Start Date Code Code System Note Provider Name and Address Organization Details Recorded Time 330443 Product containin g penicilli n (product) medicatio n Not available Not available Not available 12/29/2021 83137 8001 SNOMED [place] Dorrian null [place] - [facility] [place] 2 15:43:28 Medications Name Sig Start Date [...] Address Organization Details Last Updated DateTime 12/29/2021 460190.86 g 40.2 kg/m2 177.8 cm [place] Finch [facility] 12/29/2021 15:43:25 Date Recorded Body height Body mass index (BMI) Body weight Provider Name and Address Organization Details Last Updated DateTime 02/12/2022 177.8 cm 40.2 kg/m2 986355.86 g Jacquelin Mistryann [facility] 02/12/2022 08:26:02 Date Recorded Body height Body mass index (BMI) Body weight Provider Name and Address Organization Details Last Updated DateTime 03/23/2022 177.8 cm 40.2 kg/m2 033189.86 g Janeth [facility] [place] 03/23/2022 08:54:05 Date Recorded Body height Body mass index (BMI) Body weight Provider Name and Address Organization Details Last Updated DateTime 05/04/2022 177.8 cm 40.2 kg/m2 788287.86 g French Dunlap [facility] [place] 05/04/2022 09:25:02 Date Recorded Body height Body mass index (BMI) Body weight Provider Name and Address Organization Details Last Updated DateTime 06/15/2022 177.8 cm 40.2 kg/m2 131267.86 g Janeth [facility] [place] 06/15/2022 08:57:18 Social History Question Answer Notes LastModified by [email or web address] Details LastModified Time Tobacco Smoking Status Former Smoker [place] Matiassyed [facility] [place] 12/29/2021 15:43:35 What Is Your Level Of Caffeine Consumption? Occasional Information not available 12/29/2021 Have You Had Cortisone? Yes Information not available 12/29/2021 How Much Tobacco Do You Smoke? No Information not available 12/29/2021 How Many Years Have You Smoked Tobacco? 3 Information not available 12/29/2021 Sex: Unknown Functional Status Question Answer Note LastModified by [email or web address] Details LastModified Time What is your level of alcohol consumption? None [email or web address] Information not available 03/23/2022 Do you or have you ever used smokeless tobacco? 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 Never used electronic cigarettes Information not available 12/29/2021 What is your exercise level? Occasional Information not available 12/29/2021 Mental Status None recorded. Family History Nothing Reported. 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 ea (please specify) N Pulmonary Embolism N Past Encounters Encounter ID Performer Location Encounter Start Date Encounter Closed Date Diagnosis/Indication Diagnosis SNOMED-CT Code Diagnosis ICD10 Code Diagnosis Note [id number] FRENCH AHUJA MD [facility] [address] [place] [address] 12/29/2021 14:24:27 12/29/2021 16:11:43 Strain of rotator cuff of shoulder 755453128 S46.011A [id number] ALESHA SOTO [facility] [address] [place] [address] 1 02/12/2022 08:05:23 02/16/2022 16:48:40 Strain of rotator cuff of shoulder 456712152 S46.011D Impingemen t syndrome of right shoulder region 2667219496 08760 M75.41 Biceps tendinitis 391967 007 M75.21 [id number] FRENCH AHUJA MD [facility] [address] [place] [address] 1 03/23/2022 08:42:20 03/23/2022 09:16:12 Strain of rotator cuff of shoulder 229118305 S46.011D [id number] FRENCH AHUJA MD [facility] [address] 05/04/2022 09:04:53 05/04/2022 09:45:28 Strain of rotator cuff of shoulder 266062136 S46.011D S/P Arthroscop ic Rotator Cuff Repair Extremity: {{Left Rig ht*}} Evaluate and Treat:as indicated Exercises: ROM, FUNCTIONAL STRENGTHEN ING Modalities :as needed Frequency: BIW Duration:6 -8 weeks [id number] FRENCH AHUJA MD [address] [address] 06/15/2022 08:22:29 06/15/2022 09:06:21 Biceps tendinitis 933073472 M75.21 Strain of rotator cuff of shoulder 119387369 S46.011D S/P Arthroscop ic Rotator Cuff Repair Extremity: {{Left Rig ht*}} Evaluate and Treat:as indicated Exercises: ROM, FUNCTIONAL STRENGTHEN ING Modalities :as needed Frequency: BIW Duration:6 -8 weeks Health Concerns Section Related Observation LastModified by Organization Detai ls LastModified Time None Recorded Concern Status LastModified by Organization Details LastModified Time None Recorded Advance Directives Directive None Recorded Payers Insurance Date Sequence Insurance Name Policy Number Policy Queen Covered Member ID Queen Member ID Guarantor Name 12/22/2021 [employer] [...] a sling and quite uncomfortable. ALESHA SOTO [address] [place] [address], [phone], [facility] 01/01/2022 09:57:35 02/12/2022 text/html 31-year-old male who [...] to begin 4 weeks postop. ALESHA SOTO [address] [place] [address], [phone], [facility] 02/17/2022 08:44:56 03/23/2022 text/html J Carlos [facility] for second postoperative visit. He is status post a right shoulder scopic rotator cuff repair subpectoral biceps tenodesis labral cyst debridement and labral repair. Overall he is doing very well now 7 weeks status post the surgery. 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 He has been doing therapy twice a week and doing therapy on his own daily. He is overall pleased with his progress and he is already more comfortable than he was prior to surgery. ALESHA SOTO [address] [place] [address], [phone], [facility] 03/25/2022 09:37:58 05/04/2022 text/html [facility] his superior border subscapularis with repair. His labral repair cyst decompression and open subpectoral biceps tenodesis February 05, 2022. He actually is regained his motion but he continues to have pain and discomfort and weakness. He is working hard with therapy and he has pain at end ranges of motion. 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 ALESHA SOTO [address] [place] [address], [phone], [facility] 05/14/2022 11:26:53 06/15/2022 text/html This is his 4-mo [facility] follow-up status post his right shoulder arthroscopic rotator cuff repair labral repair paralabral cyst decompression and open subpectoral biceps tenodesis February 05, 2022. He is doing very well. He has no complaints. 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 FRENCH AHUJA MD [address] [place] [address], [phone] [place] 06/24/2022 08:12:13
--- OUTSIDE RECORDS SUMMARY | 2024-11-26 15:45 | XMS_ITS | Data Portability ---
Author Organization ALESHA Olivera s, [address] Address [address] [place] [address] Care Team Providers Care Manager Database Administration Name Role Phone [facility] Primary Care Provider Assessment No assessment recorded. Plan of Treatment Reminders Order Date Submit Date Provider Last Modified By Organization Details Last Modified Time Details Appointments None recorded. Lab rapid SARS CoV 2 Ag, QL IA, respiratory specimen 2021 022 [email or web address] [facility], [address] [place] [address], [phone], 19:05:55 Referral None recorded. Procedures None recorded. Surgeries None recorded. Imaging None recorded. Medication Orders None recorded. Patient TargetsNo targets recorded. Patient Instructions Encounter Date Encounter Id Patient Instructions Last Modified By Organization Details Last Modified Time 06/26/2022 [id number] cough: care instructions [email or web address] Not available 06/26/2022 19:05:55 Reason for Referral None Reported. Results Created Date Observation Date Name Description Value Unit Range Abnormal Flag Note LastModifiedBy Organization Detail LastModifiedTime 06/26/2006/26/2022 rapid SARS CoV 2 Ag, QL IA, respi rator y speci men Unknown Analyte Normal =Negat shonda Not Available [facility] [address] [place] [address], [phone], 06/26/2022 18:23:19 06/26/20 22 06/26/2022 rapid SARS CoV 2 Ag, QL IA, respi rator y speci men Unknown Analyte negati ve Not Available axel agosto [address], [phone], 06/26/2022 18:23:19 Result Notes None recorded. Problems Name Problem SNOMED Code Status Onset Date Resolution Date Notes Provider Name and Address Organization Details Recorded Time Hypertensive disorder 95544784 Active 2021 KI schwab[place] - [facility] 2 18:20:59 Diabetes mellitus 29298934 Active 2021 [facility] [...] Name and Address Organization Details Recorded Time 08983 Product containin g penicilli n (product) medicatio n facial swelling Not available high 06/26/2022 57104 8001 SNOMED [facility] [...] Address Organization Details Last Updated DateTime 2 208134. 02 g 37.3 kg/m2 177.8 cm 97 % 97 % 95 /min 18 /min 98.1 [degF] 131 mm[Hg] 88 mm[Hg] KI ELLIS [place] - [facility] 2 18:25:35 Social History Question Answer Notes LastModified by Organizat ion Details LastModified Time Tobacco Smoking Status Never Smoker ALESHA Ge - [facility] 06/26/2022 18:21:35 What Is Your Water Source? Other Information not available 06/26/2022 What Is Your Heat Source? Other Information not available 06/26/2022 Have You Recently Traveled Abroad? No Information not available 06/26/2022 Sex: Unknown Functional Status Question Answer Note LastModified by Organizat ion Details LastModified Time Do you use any illicit or recreational drugs? No Information not available 06/26/2022 What is your level of alcohol consumption? None Information not available 06/26/2022 Are you currently employed? Yes Information not available 06/26/2022 Mental Status None recorded. Family History Relationship [...] SNOMED-CT Code Diagnosis ICD10 Code Diagnosis Note [id number] [address] [place] [address] 04/06/2021 14:14:33 04/06/2021 15:37:30 [id number] [address] [place] [address] 03/11/2021 13:49:40 03/11/2021 16:30:48 [id number] [address] [place] [address] 11/10/2020 12:52:23 11/10/2020 14:20:59 [id number] ALESHA IZQUIERDO [address] [place] [address] 06/26/2022 15:43:00 06/26/2022 19:07:30 COVID-19 138567874 U07.1 Resolving on Paxlovid - Need COVID test for Work Health Concerns Section Related Observation LastModified by Organization Detai ls LastModified Time None Recorded Concern Status LastModified by Organization Details LastModified Time None Recorded Advance Directives Directive None Recorded Payers Insurance Date Sequence Insurance Name Policy Number Policy Queen Covered Member ID Queen Member ID Guarantor Name 06/26/2022 1 [facility] [employer] [facility] TYPE I ([id number]) [id number] Blucarlton Zimmerman [id number] Blu Zimmerman Notes Date Note Type Note Provider Name and Address Organization Details Recorded Time 2 text/html CoughReported bypatient.source of patient informationInformation obtained from patient; Patient arrived at Urgent Care ambulatory Severity:improving Associated Symptoms:no fever; no chills; no chest pain; no heartburn; no nausea; no vomiting; no edema ALESHA IZQUIERDO [facility] [place], [address], [place] - [facility] 06/26/2022 19:09:41
--- OUTSIDE RECORDS SUMMARY | 2024-11-26 15:45 | XMS_ITS | Continuity of Care Document ---
Author Organization [facility] Address [address] [place] [address] Insurance Providers Payer Plan Claims Address Claims Phone Policy Number Group Number Relation Employer Guarantor Name Guarantor Guarantor Address Guarantor Phone [facility] Dire t [id number] Matt Zimmerman 1990 [address] [place] [address] [facility] h Plans [id number] Matt Zimmerman 1990 [place] [address] [employer] on [address] [place] [address] tel:[phone] [id number] Matt Zimmerman 1990 [place] [address] Problems Condition ICD9 code ICD10 code SNOMED code Start Date End Date S tatus Encounter for screening for other metabolic disorders Z13.228 Results No Results Allergies, adverse reactions, alerts No known allergies and adverse reactions Medications No administered medications reported Vital Signs No vital signs reported Social History No smoking Hx information available
[2024-11-26 15:55] LABS: Glucose, Whole Blood 137 mg/dL (60-115)
== END 2024-11-26 16:13 | disposition home or self-care (01) ==
LOC: HO.ENCR 15:44
PROVIDERS: PCP Nurse Practitioner Family; Visit Provider Physician Assistant
DX: E11.65 Type 2 diabetes mellitus with hyperglycemia (principal); Z79.4 Long term (current) use of insulin; I10 Essential (primary) hypertension; E78.5 Hyperlipidemia, unspecified

== ENCOUNTER → 2024-11-26 15:43 | Outpatient (BNVA) | payer OTHER, SELFPAY | PROVIDERS: PCP Nurse Practitioner Family; Visit Provider Physician Assistant | DX: E11.65 Type 2 diabetes mellitus with hyperglycemia (principal); I10 Essential (primary) hypertension; E78.5 Hyperlipidemia, unspecified; Z79.4 Long term (current) use of insulin; Z79.899 Other long term (current) drug therapy | CPT/HCPCS: 82947 ==